=== PATIENT | female | born 1960 | race Caucasian/White ===

== ENCOUNTER 2018-03-03 08:05 | Outpatient (CLI) | payer BC, SELFPAY ==
[2018-03-03 09:45] LABS: Hemoglobin A1C 5.8 % (4.5-6.2)
[2018-03-03 09:52] LABS: Ferritin 60 ng/mL (8-388); TSH 0.09 uIU/mL (0.358-3.74)
[2018-03-03 10:10] LABS: FREE T4 0.84 ng/dL (0.76-1.46)
[2018-03-03 12:52] LABS: Vitamin D 25 Total 27.1 ng/ml (30-100)
[2018-03-03 16:16] LABS: T3,Free 4.3 pg/ml (2.8-5.3)
[2018-03-04 15:36] LABS: Adrenocorticotropic Hormone, P 29 pg/mL
[2018-03-06 08:46] LABS: IGF-1, LC/MS, S 220 ng/mL (37-208); Z-score 2.01 SD
== END 2018-03-03 08:25 ==
PROVIDERS: PCP Nurse Practitioner; Visit Provider Internal Medicine Endocrinology, Diabetes & Metabolism
DX: E24.9 Cushing's syndrome, unspecified (principal)
CPT/HCPCS: 36415; 82306; 82533; 82024; 82728; 83036; 84305; 84439; 84443; 84481

== ENCOUNTER 2018-03-10 07:53 | Outpatient (CLI) | payer BC, SELFPAY ==
[2018-03-10 09:24] LABS: Ferritin 61 ng/mL (8-388); TSH 0.09 uIU/mL (0.358-3.74)
[2018-03-10 09:29] LABS: Vitamin D 25 Total 28.1 ng/ml (30-100)
[2018-03-11 14:32] LABS: Adrenocorticotropic Hormone, P 25 pg/mL
[2018-03-12 11:54] LABS: IGF-1, LC/MS, S 217 ng/mL (37-208); Z-score 2.01 SD
== END 2018-03-10 08:13 ==
PROVIDERS: PCP Nurse Practitioner; Visit Provider Internal Medicine Endocrinology, Diabetes & Metabolism
DX: E24.9 Cushing's syndrome, unspecified (principal)
CPT/HCPCS: 36415; 82306; 82533; 82024; 82728; 83036; 84305; 84439; 84443; 84481

== ENCOUNTER 2018-05-13 07:37 | Outpatient (CLI) | payer BC, SELFPAY ==
[2018-05-13 08:19] LABS: Hemoglobin A1C 6.2 % (4.5-6.2)
[2018-05-13 09:23] LABS: FREE T4 1.13 ng/dL (0.76-1.46); TSH 0.03 uIU/mL (0.358-3.74)
[2018-05-13 09:57] LABS: Ferritin 79 ng/mL (8-388)
[2018-05-13 21:17] LABS: T3,Free 4.8 pg/ml (2.8-5.3)
[2018-05-15 05:16] LABS: Vitamin D 25 Total 29.3 ng/ml (30-100)
[2018-05-15 11:29] LABS: Adrenocorticotropic Hormone, P 18 pg/mL
[2018-05-16 10:01] LABS: T3 (Triiodothyronine) Reverse 19 ng/dL (10-24)
== END 2018-05-13 07:57 ==
PROVIDERS: PCP Nurse Practitioner; Visit Provider Internal Medicine Endocrinology, Diabetes & Metabolism
DX: E24.9 Cushing's syndrome, unspecified (principal)
CPT/HCPCS: 36415; 82306; 82533; 82024; 82728; 83036; 84439; 84443; 84481; 84482

== ENCOUNTER 2018-08-22 07:38 | Outpatient (CLI) | payer BC, SELFPAY ==
[2018-08-22 08:28] LABS: Hemoglobin A1C 5.8 % (4.5-6.2)
[2018-08-22 09:44] LABS: Ferritin 88 ng/mL (8-388); TSH 0.02 uIU/mL (0.358-3.74)
[2018-08-22 16:39] LABS: T3,Free 5.2 pg/ml (2.8-5.3)
[2018-08-22 16:52] LABS: Estradiol <12 pg/ml
[2018-08-23 14:02] LABS: Adrenocorticotropic Hormone, P 45 pg/mL
[2018-08-25 07:41] LABS: Vitamin D 25 Total 35.2 ng/ml (30-100)
[2018-08-26 12:19] LABS: T3 (Triiodothyronine) Reverse 19 ng/dL (10-24)
[2018-08-27 17:38] LABS: IGF-1, LC/MS, S 139 ng/mL (37-208); Z-score 0.84 SD
== END 2018-08-22 07:58 ==
PROVIDERS: PCP Nurse Practitioner; Visit Provider Internal Medicine Endocrinology, Diabetes & Metabolism
DX: E24.9 Cushing's syndrome, unspecified (principal)
CPT/HCPCS: 36415; 82306; 82533; 82024; 82670; 82728; 83036; 84305; 84439; 84443; 84481; 84482

== ENCOUNTER 2018-12-12 07:51 | Outpatient (CLI) | payer BC, SELFPAY ==
[2018-12-12 09:13] LABS: Ferritin 141 ng/mL (8-388); T4 10.2 ug/dL (4.5-12.5); TSH 0.01 uIU/mL (0.36-3.74)
[2018-12-12 18:07] LABS: T3,Free 4.4 pg/ml (2.8-5.3)
[2018-12-12 18:22] LABS: Estradiol 12 pg/ml
[2018-12-13 14:04] LABS: Adrenocorticotropic Hormone, P 25 pg/mL
[2018-12-15 08:03] LABS: Vitamin D 25 Total 30.9 ng/ml (30-100)
[2018-12-16 11:46] LABS: T3 (Triiodothyronine) Reverse 20 ng/dL (10-24)
[2018-12-18 16:40] LABS: IGF-1, LC/MS, S 178 ng/mL (37-208); Z-score 1.65 SD
== END 2018-12-12 08:11 ==
PROVIDERS: PCP Nurse Practitioner; Visit Provider Internal Medicine Endocrinology, Diabetes & Metabolism
DX: E24.9 Cushing's syndrome, unspecified (principal)
CPT/HCPCS: 82306; 82533; 82024; 82670; 82728; 83036; 84305; 84436; 84443; 84481; 84482

== ENCOUNTER 2019-03-04 08:06 | Outpatient (CLI) | payer BC, SELFPAY ==
[2019-03-04 09:55] LABS: Hemoglobin A1C 5.8 % (4.5-6.2)
[2019-03-04 10:11] LABS: Ferritin 116 ng/mL (8-252); T4 10.2 ug/mL (4.7-13.3); TSH 0.01 uIU/mL (0.36-3.74)
[2019-03-04 10:35] LABS: FREE T4 1.11 ng/dL (0.76-1.46)
[2019-03-05 04:41] LABS: Vitamin D 25 Total 27.1 ng/ml (30-100)
[2019-03-05 08:38] LABS: Estradiol 12 pg/mL (See Note)
[2019-03-05 13:16] LABS: Adrenocorticotropic Hormone, P 26 pg/mL
[2019-03-06 15:42] LABS: IGF-1, LC/MS, S 212 ng/mL (37-208); Z-score 2.01 SD
[2019-03-07 16:16] LABS: T3 (Triiodothyronine) Reverse 25 ng/dL (10-24)
== END 2019-03-04 08:26 ==
PROVIDERS: PCP Nurse Practitioner; Visit Provider Internal Medicine Endocrinology, Diabetes & Metabolism
DX: E24.9 Cushing's syndrome, unspecified (principal)
CPT/HCPCS: 36415; 82306; 82533; 82024; 82670; 82728; 83036; 84305; 84436; 84439; 84443; 84481; 84482

== ENCOUNTER 2019-03-19 08:49 | Outpatient (CLI) | payer BC, SELFPAY ==
[2019-03-19 10:21] LABS: ALT 37 U/L (14-59); AST 18 U/L (15-37); Albumin 3.4 g/dL (3.4-5.0); Alkaline Phosphatase 88 U/L (46-116); Anion Gap 6.8 mmol/L (3-11); BUN 16 mg/dL (7-18); Bilirubin, Total 0.6 mg/dL (0.2-1.0); CO2 30.2 mmol/L (21.0-32.0); CREATININE 0.97 mg/dL (0.55-1.02); Calculated LDL 100 mg/dL; Chloride 107 mmol/L (98-107); Cholesterol 172 mg/dL (<200); Estimated GFR 58.98 (mL/min/1.73m2); Glucose 106 mg/dL (74-106); HDL Cholesterol 59 mg/dL (40-60); Potassium 4.5 mmol/L (3.5-5.1); Sodium 144 mmol/L (136-145); Total Protein 6.3 g/dL (6.4-8.2); Triglyceride 66 mg/dL (<150)
== END 2019-03-19 09:09 ==
PROVIDERS: PCP Family Medicine; Visit Provider Family Medicine
DX: Z00.00 Encounter for general adult medical examination without abnormal findings (principal); R73.03 Prediabetes; E24.9 Cushing's syndrome, unspecified; Z13.220 Encounter for screening for lipoid disorders
CPT/HCPCS: 36415; 80053; 80061

== ENCOUNTER 2019-06-01 02:03 | Outpatient (CLI) | payer BC, SELFPAY ==
--- NOTE | 2019-06-01 | DI.MAMMO_ITS ---
EXAM: MG MAMMO SCREENING CLINICAL HISTORY: SCREENING, Z12.31. TECHNIQUE: Bilateral full field digital CC and MLO mammographic images were obtained with 3D tomosyn thesis and utilizing computer aided detection (CAD). COMPARISON: Available for comparison. FINDINGS: Masses/Architectural Distortion: None seen. Microcalcifications: No suspicious pleomorphic-type are seen. Skin Thickening/Nipple Retraction: None. IMPRESSION: 1. No significant interval change with no specific features of malignancy noted. 2. Unless there is more urgent need, screening mammography is recommended, as per [employer] guidelines. ACR BI-RAD Category- 1 Negative Breast Density - Category A - Almost entirely fatty A negative radiographic report should not delay biopsy if a dominant or clinically suspicious mass is present. Up to ten percent of cancers are not identified on mammography. A negative report may reinforce clinical impression. Adenosis and dense breasts may obscure an underlying neoplasm. False positive reports average 6 to 10%. Patient will receive a letter notifying them of these results.
== END 2019-06-01 02:23 ==
PROVIDERS: PCP Family Medicine; Visit Provider Family Medicine
DX: Z12.31 Encounter for screening mammogram for malignant neoplasm of breast (principal)
CPT/HCPCS: 77063; 77067

== ENCOUNTER 2019-06-23 07:46 | Outpatient (CLI) | payer BC, SELFPAY ==
[2019-06-23 08:36] LABS: Hemoglobin A1C 5.9 % (3.8-5.6)
[2019-06-23 09:02] LABS: Ferritin 130 ng/mL (8-252); TSH 0.09 uIU/mL (0.36-3.74)
[2019-06-23 09:18] LABS: FREE T4 0.87 ng/dL (0.76-1.46)
[2019-06-23 16:02] LABS: T3,Free 3.9 pg/mL (2.8-5.3)
[2019-06-23 16:47] LABS: Estradiol 12 pg/mL (See Note)
[2019-06-24 16:30] LABS: Adrenocorticotropic Hormone, P 27 pg/mL
[2019-06-25 06:15] LABS: Vitamin D 25 Total 26.2 ng/ml (30-100)
[2019-06-26 15:47] LABS: T3 (Triiodothyronine) Reverse 15 ng/dL (10-24)
== END 2019-06-23 08:06 ==
PROVIDERS: PCP Family Medicine; Visit Provider Internal Medicine Endocrinology, Diabetes & Metabolism
DX: E24.9 Cushing's syndrome, unspecified (principal)
CPT/HCPCS: 36415; 82306; 82533; 83519; 82024; 82670; 82728; 83036; 84439; 84443; 84481; 84482

== ENCOUNTER 2019-07-15 11:44 | Outpatient (CLI) | payer BC, SELFPAY ==
[2019-07-21 12:18] LABS: IGF-1, LC/MS, S 233 ng/mL (37-208); Z-score 2.33 SD
== END 2019-07-15 12:04 ==
PROVIDERS: PCP Family Medicine; Visit Provider Internal Medicine Endocrinology, Diabetes & Metabolism
DX: E24.9 Cushing's syndrome, unspecified (principal)
CPT/HCPCS: 84305

== ENCOUNTER 2019-09-16 02:52 | Outpatient (CLI) | payer BC, SELFPAY ==
[2019-09-16 08:56] LABS: Hemoglobin A1C 5.7 % (3.8-5.6)
[2019-09-16 15:20] LABS: Ferritin 130 ng/mL (8-252); TSH 0.11 uIU/mL (0.36-3.74)
[2019-09-16 15:46] LABS: FREE T4 0.99 ng/dL (0.76-1.46)
[2019-09-16 17:49] LABS: T3,Free 4.2 pg/mL (2.8-5.3)
[2019-09-16 18:08] LABS: Estradiol <12 pg/mL (See Note)
[2019-09-17 05:07] LABS: Vitamin D 25 Total 27.1 ng/ml (30-100)
[2019-09-17 15:33] LABS: Adrenocorticotropic Hormone, P 30 pg/mL
[2019-09-21 16:11] LABS: IGF-1, LC/MS, S 201 ng/mL (37-208); Z-score 1.96 SD
[2019-09-21 16:34] LABS: T3 (Triiodothyronine) Reverse 16 ng/dL (10-24)
== END 2019-09-16 03:12 ==
PROVIDERS: PCP Family Medicine; Visit Provider Internal Medicine Endocrinology, Diabetes & Metabolism
DX: E24.9 Cushing's syndrome, unspecified (principal)
CPT/HCPCS: 36415; 82306; 82533; 82024; 82670; 82728; 83036; 84305; 84439; 84443; 84481; 84482

== ENCOUNTER 2019-12-25 03:54 | Outpatient (CLI) | payer BC, SELFPAY ==
[2019-12-25 09:43] LABS: Ferritin 176 ng/mL (8-252); TSH 0.24 uIU/mL (0.36-3.74)
[2019-12-25 10:05] LABS: FREE T4 0.98 ng/dL (0.76-1.46)
[2019-12-25 11:42] LABS: Hemoglobin A1C 5.7 % (<5.7)
[2019-12-25 18:01] LABS: T3,Free 3.8 pg/mL (2.8-5.3)
[2019-12-25 18:29] LABS: Estradiol <12 pg/mL (See Note)
[2019-12-28 05:59] LABS: Vitamin D 25 Total 28.8 ng/ml (30-100)
[2019-12-28 10:39] LABS: Adrenocorticotropic Hormone, P 27 pg/mL
[2019-12-29 11:25] LABS: T3 (Triiodothyronine) Reverse 17 ng/dL (10-24)
[2019-12-29 15:45] LABS: IGF-1, LC/MS, S 201 ng/mL (37-208); Z-score 1.96 SD
== END 2019-12-25 04:14 ==
PROVIDERS: PCP Family Medicine; Visit Provider Internal Medicine Endocrinology, Diabetes & Metabolism
DX: E24.9 Cushing's syndrome, unspecified (principal)
CPT/HCPCS: 36415; 82306; 82533; 82024; 82670; 82728; 83036; 84305; 84439; 84443; 84481; 84482

== ENCOUNTER 2020-02-24 07:38 | Outpatient (CLI) | payer BC, SELFPAY ==
[2020-02-28 14:38] LABS: Patient Race White; SARS-CoV-2 RNA Undetected (Undetected); SARS-CoV-2 Specimen Source Nasal
== END 2020-02-24 07:58 ==
PROVIDERS: PCP Family Medicine; Visit Provider Family Medicine
DX: Z20.828 Contact with and (suspected) exposure to other viral communicable diseases (principal)
CPT/HCPCS: U0003

== ENCOUNTER 2020-03-03 04:37 | Outpatient (CLI) | payer BC, SELFPAY ==
[2020-03-03 08:44] LABS: Hemoglobin A1C 5.8 % (<5.7)
[2020-03-03 09:29] LABS: Ferritin 152 ng/mL (8-252); TSH 0.22 uIU/mL (0.36-3.74)
[2020-03-03 09:39] LABS: Vitamin D 25 Total 28.2 ng/ml (30-100)
[2020-03-03 09:46] LABS: FREE T4 0.96 ng/dL (0.76-1.46)
[2020-03-04 14:57] LABS: Adrenocorticotropic Hormone, P 40 pg/mL
[2020-03-07 12:21] LABS: IGF-1, LC/MS, S 180 ng/mL (37-208); Z-score 1.65 SD
[2020-03-09 11:19] LABS: T3 (Triiodothyronine) Reverse 15 ng/dL (10-24)
[2020-03-16 16:32] LABS: Estradiol 12 pg/mL
[2020-03-16 16:33] LABS: T3,Free 2.9 pg/mL
== END 2020-03-03 04:57 ==
PROVIDERS: PCP Family Medicine; Visit Provider Internal Medicine Endocrinology, Diabetes & Metabolism
DX: E24.9 Cushing's syndrome, unspecified (principal)
CPT/HCPCS: 36415; 82306; 82533; 82024; 82670; 82728; 83036; 84305; 84439; 84443; 84481; 84482

== ENCOUNTER 2020-05-20 01:27 | Outpatient (CLI) | payer BC, SELFPAY ==
[2020-05-20 08:36] LABS: Hemoglobin A1C 5.9 % (<5.7)
[2020-05-20 09:46] LABS: FREE T4 1.06 ng/dL (0.76-1.46); TSH 0.14 uIU/mL (0.36-3.74)
[2020-05-20 12:34] LABS: Ferritin 175 ng/mL (8-252)
[2020-05-20 12:45] LABS: Vitamin D 25 Total 64.4 ng/ml (30-100)
[2020-05-21 16:41] LABS: Adrenocorticotropic Hormone, P 32 pg/mL
[2020-05-25 10:28] LABS: IGF-1, LC/MS, S 244 ng/mL (37-208); Z-score 2.33 SD
[2020-05-27 09:40] LABS: Estradiol 13 pg/mL (See Note); T3,Free 3.6 pg/mL (2.8-5.3)
[2020-05-27 09:43] LABS: T3 (Triiodothyronine) Reverse 14 ng/dL (10-24)
== END 2020-05-20 01:28 | disposition home or self-care (01) ==
LOC: LBO 01:27
PROVIDERS: PCP Family Medicine; Visit Provider Internal Medicine Endocrinology, Diabetes & Metabolism
DX: E24.9 Cushing's syndrome, unspecified (principal)
CPT/HCPCS: 36415; 82306; 82533; 83519; 82024; 82670; 82728; 83036; 84305; 84436; 84439; 84443; 84481; 84482

== ENCOUNTER 2020-07-18 01:50 | Outpatient (CLI) | payer BC, SELFPAY ==
--- NOTE | 2020-07-18 | DI.RAD_ITS ---
EXAM: XR ARTHRITIS SERIES CLINICAL HISTORY: BILAT HAND PAIN,M70.641,M79.642. TECHNIQUE: 2D digital imaging was performed. COMPARISON: No exams were available for comparison FINDINGS: There are mild degenerative changes seen at the hands with periarticular spurring most marked at the 1st CMC joints bilaterally. The MCP joints are well maintained. No soft tissue calcifications or er osions are seen. The bones are normally mineralized. The soft tissues are unremarkable. No acute f racture or dislocation. IMPRESSION: Mild degenerative changes of the hands. DATA REPOSITORY: RADIATION DOSE DELIVERED:
--- NOTE | 2020-07-18 | DI.RAD_ITS ---
EXAM: XR FOOT LT COMPLETE CLINICAL HISTORY: BILAT FOOT PAIN,M79.671,M79.672. TECHNIQUE: 2D digital imaging was performed. COMPARISON: No exams were available for comparison FINDINGS: Klzh-gm-[id number] degenerative changes are seen at the 1st MTP joint with joint space narrowing, peria rticular spurring and subchondral cysts. There is a small spur at the plantar surface of the calcane us. There is an enthesophyte at the Achilles insertion site. No acute fracture or dislocation. The bones are normally mineralized. The soft tissues are unremarkable. IMPRESSION: Degenerative changes of the left foot. DATA REPOSITORY: RADIATION DOSE DELIVERED:
--- NOTE | 2020-07-18 | DI.RAD_ITS ---
EXAM: XR FOOT RT COMPLETE CLINICAL HISTORY: BILAT FOOT PAIN, M79.671,M79.672. TECHNIQUE: 2D digital imaging was performed. COMPARISON: No exams were available for comparison FINDINGS: No acute fracture or dislocation. Degenerative changes are seen in the foot with periarticular spurr ing particularly at the talonavicular joint and the 1st MTP joint. There are findings of a prior bun ionectomy. The bones are normally mineralized. No suspicious lytic or sclerotic lesions are seen. There is a moderate-sized plantar calcaneal spur. There is an enthesophyte at the Achilles insertion site. The soft tissues are unremarkable. IMPRESSION: Mild degenerative changes of the right foot. DATA REPOSITORY: RADIATION DOSE DELIVERED:
== END 2020-07-18 02:10 ==
PROVIDERS: PCP Family Medicine; Visit Provider Internal Medicine Rheumatology
DX: M79.642 Pain in left hand (principal); M79.641 Pain in right hand; M19.041 Primary osteoarthritis, right hand; M19.042 Primary osteoarthritis, left hand; M79.671 Pain in right foot; M79.672 Pain in left foot; M19.071 Primary osteoarthritis, right ankle and foot; M77.31 Calcaneal spur, right foot; M19.072 Primary osteoarthritis, left ankle and foot; M77.32 Calcaneal spur, left foot
CPT/HCPCS: 73120; 73630

== ENCOUNTER 2020-08-01 16:02 | Outpatient (REF) | payer BC, SELFPAY ==
[2020-08-01 16:27] LABS: Bilirubin Negative (Negative); Blood Negative (Negative); Clarity Clear (Clear); Glucose Negative (Negative); Ketones Negative (Negative); Leukocyte Esterase Negative (Negative); Nitrite Negative (Negative); Urobilinogen 0.2 EU/dL (Up TO 0.2); pH 5.5 (5-8)
== END 2020-08-01 16:03 | disposition home or self-care (01) ==
LOC: LBN 16:02
PROVIDERS: PCP Family Medicine; Visit Provider Internal Medicine Endocrinology, Diabetes & Metabolism
DX: E24.9 Cushing's syndrome, unspecified (principal)
CPT/HCPCS: 81003

== ENCOUNTER 2020-09-16 02:39 | Outpatient (CLI) | payer BC, SELFPAY ==
[2020-09-16 08:47] LABS: Hemoglobin A1C 5.8 % (<5.7)
[2020-09-16 09:55] LABS: FREE T4 1.15 ng/dL (0.76-1.46); TSH 0.07 uIU/mL (0.36-3.74)
[2020-09-16 16:32] LABS: T3,Free 4.8 pg/mL (2.8-5.3)
[2020-09-19 05:27] LABS: Vitamin D 25 Total 70.4 ng/mL (30-100)
[2020-09-19 11:55] LABS: Adrenocorticotropic Hormone, P 21 pg/mL
[2020-09-19 13:29] LABS: IGF-1, LC/MS, S 181 ng/mL (37-208); Z-score 1.65 SD
[2020-09-20 09:48] LABS: T3 (Triiodothyronine) Reverse 23 ng/dL (10-24)
== END 2020-09-16 02:40 | disposition home or self-care (01) ==
LOC: LBO 02:39
PROVIDERS: PCP Family Medicine; Visit Provider Internal Medicine Endocrinology, Diabetes & Metabolism
DX: E55.9 Vitamin D deficiency, unspecified (principal); E21.3 Hyperparathyroidism, unspecified; D50.0 Iron deficiency anemia secondary to blood loss (chronic); E03.9 Hypothyroidism, unspecified; E23.0 Hypopituitarism; E11.9 Type 2 diabetes mellitus without complications; E34.9 Endocrine disorder, unspecified
CPT/HCPCS: 36415; 82306; 83519; 82024; 83036; 84305; 84439; 84443; 84481; 84482

== ENCOUNTER 2021-01-09 03:21 | Outpatient (CLI) | payer BC, SELFPAY ==
[2021-01-09 09:57] LABS: TSH 0.89 uIU/mL (0.36-3.74)
[2021-01-09 10:13] LABS: FREE T4 0.68 ng/dL (0.76-1.46)
[2021-01-09 10:18] LABS: Vitamin D 25 Total 42.8 ng/mL (30-100)
[2021-01-10 12:46] LABS: Adrenocorticotropic Hormone, P 17 pg/mL
[2021-01-12 09:21] LABS: IGF-1, LC/MS, S 187 ng/mL (37-208); Z-score 1.65 SD
[2021-01-12 16:13] LABS: T3 (Triiodothyronine) Reverse 15 ng/dL (10-24)
== END 2021-01-09 03:22 | disposition home or self-care (01) ==
PROVIDERS: PCP Family Medicine; Visit Provider Internal Medicine Endocrinology, Diabetes & Metabolism
DX: E55.9 Vitamin D deficiency, unspecified (principal); E21.3 Hyperparathyroidism, unspecified; D50.0 Iron deficiency anemia secondary to blood loss (chronic); E03.9 Hypothyroidism, unspecified; E23.0 Hypopituitarism; E11.9 Type 2 diabetes mellitus without complications; E34.9 Endocrine disorder, unspecified
CPT/HCPCS: 36415; 82306; 82533; 83519; 82024; 83036; 84305; 84439; 84442; 84443; 84481; 84482

== ENCOUNTER 2021-07-19 03:00 | Outpatient (CLI) | payer BC, SELFPAY ==
[2021-07-19 09:34] LABS: FREE T4 0.82 ng/dL (0.76-1.46); TSH 0.16 uIU/mL (0.36-3.74)
[2021-07-19 17:18] LABS: T3,Free 4.7 pg/mL (2.8-5.3)
[2021-07-20 05:31] LABS: Vitamin D 25 Total 36.4 ng/mL (30-100)
[2021-07-20 17:55] LABS: Adrenocorticotropic Hormone, P 25 pg/mL
[2021-07-24 10:32] LABS: IGF-1, LC/MS, S 204 ng/mL (37-208); Z-score 1.96 SD
[2021-07-24 12:59] LABS: T3 (Triiodothyronine) Reverse 14 ng/dL (10-24)
== END 2021-07-19 03:01 | disposition home or self-care (01) ==
LOC: LBO 03:00
PROVIDERS: PCP Family Medicine; Visit Provider Internal Medicine Endocrinology, Diabetes & Metabolism
DX: E55.9 Vitamin D deficiency, unspecified (principal); E21.3 Hyperparathyroidism, unspecified; D50.0 Iron deficiency anemia secondary to blood loss (chronic); E03.9 Hypothyroidism, unspecified; E23.0 Hypopituitarism; E11.9 Type 2 diabetes mellitus without complications; E34.8 Other specified endocrine disorders
CPT/HCPCS: 36415; 82306; 82533; 82024; 83036; 84305; 84439; 84443; 84481; 84482

== ENCOUNTER 2021-12-27 01:50 | Outpatient (CLI) | payer BC, SELFPAY ==
[2021-12-27 09:30] LABS: FREE T4 0.86 ng/dL (0.76-1.46); TSH 0.69 uIU/mL (0.36-3.74)
[2021-12-27 17:40] LABS: T3,Free 3.4 pg/mL (2.8-5.3)
[2021-12-28 05:18] LABS: Vitamin D 25 Total 35.5 ng/mL (30-100)
[2021-12-28 15:04] LABS: Adrenocorticotropic Hormone, P 39 pg/mL
[2021-12-30 12:58] LABS: IGF-1, LC/MS, S 177 ng/mL (35-201); Z-score 1.65 SD
[2022-01-02 16:34] LABS: T3 (Triiodothyronine) Reverse 13 ng/dL (10-24)
== END 2021-12-27 01:51 | disposition home or self-care (01) ==
LOC: LBO 01:50
PROVIDERS: PCP Family Medicine; Visit Provider Internal Medicine Endocrinology, Diabetes & Metabolism
DX: E55.9 Vitamin D deficiency, unspecified (principal); E21.3 Hyperparathyroidism, unspecified; D50.0 Iron deficiency anemia secondary to blood loss (chronic); E03.9 Hypothyroidism, unspecified; E23.0 Hypopituitarism; E11.9 Type 2 diabetes mellitus without complications; E34.9 Endocrine disorder, unspecified
CPT/HCPCS: 36415; 82306; 82533; 82024; 83036; 84305; 84439; 84443; 84481; 84482

== ENCOUNTER → 2022-03-27 01:19 | Outpatient (CLI) | payer BC, SELFPAY ==
--- NOTE | 2022-03-27 12:15 | DI.MAMMO_ITS ---
Exam(s) MAMMO SCREENING EXAM: MAMMO SCREENING CLINICAL HISTORY: STEFFEN, Z12.39 TECHNIQUE: Bilateral full field digital CC and MLO mammographic images were obtained with 3D tomosyn thesis and utilizing computer aided detection (CAD). COMPARISON: Available for comparison. FINDINGS: Masses/Architectural Distortion: None seen. Microcalcifications: No suspicious pleomorphic-type are seen. Skin Thickening/Nipple Retraction: None. IMPRESSION: 1. No significant interval change with no specific features of malignancy noted. 2. Unless there is more urgent need, screening mammography is recommended, as per [employer] guidelines. BI-RADS Category 1 - Negative Breast Density - Category A - Almost entirely fatty Breast density category C or D implies that the patient has dense breast tissue. Dense breast tissue is very common and is not abnormal but dense breast tissue can make it harder to find cancer on a ma mmogram. Also, dense breast tissue may increase their breast cancer risk. This information about the result of the mammogram report was provided to the patient to raise their awareness. Use this report when you speak with the patient about their risks for breast cancer, which includes their family hist ory. At that time, you may recommend for more screening tests (Ultrasound or MRI) as they might be us eful based on their risk. A negative radiographic report should not delay biopsy if a dominant or clinically suspicious mass is present. Up to ten percent of cancers are not identified on mammography. A negative report may reinforce clinical impression. Adenosis and dense breasts may obscure an underlying neoplasm. False positive reports average 6 to 10%. Patient will receive a letter notifying them of these results.
== END ==
PROVIDERS: PCP Family Medicine; Visit Provider Family Medicine
DX: Z12.31 Encounter for screening mammogram for malignant neoplasm of breast (principal)
CPT/HCPCS: 77063; 77067

== ENCOUNTER 2022-07-10 02:25 | Outpatient (CLI) | payer BC, SELFPAY ==
[2022-07-10 09:24] LABS: Hemoglobin A1C 5.8 % (<5.7)
[2022-07-10 09:42] LABS: FREE T4 1.19 ng/dL (0.76-1.46); TSH 0.01 uIU/mL (0.36-3.74)
[2022-07-10 10:21] LABS: Vitamin D 25 Total 30.3 ng/mL (30-100)
[2022-07-10 17:57] LABS: T3,Free 5.1 pg/mL (2.8-5.3)
[2022-07-11 17:42] LABS: Adrenocorticotropic Hormone, P 22 pg/mL
[2022-07-13 16:36] LABS: T3 (Triiodothyronine) Reverse 25 ng/dL (10-24)
[2022-07-13 16:57] LABS: IGF-1, LC/MS, S 208 ng/mL (35-201); Z-score 2.01 SD
== END 2022-07-10 02:26 | disposition home or self-care (01) ==
LOC: LBO 02:25
PROVIDERS: PCP Family Medicine; Visit Provider Internal Medicine Endocrinology, Diabetes & Metabolism
DX: E24.9 Cushing's syndrome, unspecified (principal); E11.9 Type 2 diabetes mellitus without complications; E55.9 Vitamin D deficiency, unspecified; E03.9 Hypothyroidism, unspecified; D50.0 Iron deficiency anemia secondary to blood loss (chronic); E34.9 Endocrine disorder, unspecified; E23.0 Hypopituitarism
CPT/HCPCS: 36415; 82306; 82533; 83519; 82024; 83036; 84305; 84439; 84443; 84481; 84482

== ENCOUNTER 2022-12-14 02:49 | Outpatient (CLI) | payer BC, SELFPAY ==
[2022-12-14 08:29] LABS: Hemoglobin A1C 5.9 % (<5.7)
[2022-12-14 08:40] LABS: TSH 0.03 uIU/mL (0.36-3.74)
[2022-12-14 08:52] LABS: Vitamin D 25 Total 29.8 ng/mL (30-100)
[2022-12-14 18:45] LABS: T3,Free 5.1 pg/mL (2.8-5.3)
[2022-12-18 12:43] LABS: Adrenocorticotropic Hormone, P 41 pg/mL
[2022-12-18 17:22] LABS: IGF-1, LC/MS, S 180 ng/mL (35-201); Z-score 1.65 SD
[2022-12-20 15:33] LABS: T3 (Triiodothyronine) Reverse 21 ng/dL (10-24)
== END 2022-12-14 02:50 | disposition home or self-care (01) ==
LOC: LBO 02:49
PROVIDERS: PCP Family Medicine; Visit Provider Internal Medicine Endocrinology, Diabetes & Metabolism
DX: E24.9 Cushing's syndrome, unspecified (principal); E23.0 Hypopituitarism; E03.9 Hypothyroidism, unspecified; E11.9 Type 2 diabetes mellitus without complications; E55.9 Vitamin D deficiency, unspecified; D50.0 Iron deficiency anemia secondary to blood loss (chronic)
CPT/HCPCS: 36415; 82306; 82533; 82024; 83036; 84305; 84439; 84442; 84443; 84481; 84482

== ENCOUNTER 2023-05-29 17:57 | Outpatient (REF) | payer BC, SELFPAY ==
[2023-05-29 14:49] LABS: Calculated LDL 92 mg/dL (<100); Cholesterol 181 mg/dL (<200); HDL Cholesterol 64 mg/dL (40-60); Triglyceride 127 mg/dL (<150)
[2023-05-29 14:58] LABS: Uric Acid 8.3 mg/dL (2.6-6.0)
== END 2023-05-29 17:58 | disposition home or self-care (01) ==
LOC: NCHCN 17:57
PROVIDERS: PCP Family Medicine; Referring Provider Nurse Practitioner Family; Visit Provider Nurse Practitioner Family
DX: M10.9 Gout, unspecified (principal); E24.9 Cushing's syndrome, unspecified
CPT/HCPCS: 80061; 84550

== ENCOUNTER 2023-07-08 05:13 | Outpatient (CLI) | payer BC, SELFPAY ==
[2023-07-08 08:37] LABS: FREE T4 0.72 ng/dL (0.76-1.46); TSH 0.96 uIU/Ml (0.36-3.74)
[2023-07-08 08:47] LABS: Vitamin D 25 Total 32.1 ng/mL (30-100)
[2023-07-08 17:20] LABS: T3,Free 4.1 pg/mL (2.8-5.3)
[2023-07-09 18:11] LABS: Adrenocorticotropic Hormone, P 25 pg/mL
[2023-07-12 10:15] LABS: T3 (Triiodothyronine) Reverse 14 ng/dL (10-24)
[2023-07-15 16:35] LABS: IGF-1, LC/MS, S 184 ng/mL (35-201); Z-score 1.65 SD
== END 2023-07-08 05:14 | disposition home or self-care (01) ==
LOC: LBO 05:13
PROVIDERS: PCP Family Medicine; Visit Provider Internal Medicine Endocrinology, Diabetes & Metabolism
DX: E24.9 Cushing's syndrome, unspecified (principal)
CPT/HCPCS: 36415; 82306; 82533; 82024; 83036; 84305; 84439; 84443; 84481; 84482

== ENCOUNTER 2024-01-09 11:43 | Observation (INO) | payer BC, SELFPAY ==
[2024-01-09] VITALS (37 sets, daily range): BP systolic 100–180; BP diastolic 53–140; PULSE 79–148; RESP 18–33; TEMP 36.2–37.9; O2SAT 93–99
[2024-01-09 12:21] LABS: Bilirubin Negative (Negative); Blood Negative (Negative); Clarity Clear (Clear); Glucose Negative (Negative); Ketones 15 mg/dL (Negative); Leukocyte Esterase Negative (Negative); Nitrite Negative (Negative); Specific Gravity 1.025 (1.005-1.025); Urobilinogen 0.2 mg/dL (Up to 0.2)
--- NOTE | 2024-01-09 12:45 | RT.EKG_ITS ---
APPROVED REPORT Exam: Resting ECG Reason for Exam: abnormal rhythm, tachycardic Patient Location: E HR:102 bpm ECG Measurements Heart Rate 102 AXIS OK [id number] P [id number] QRSd 88 QRS 75 QT 343 T 185 QTc 448 Conclusion Atrial fibrillation...V-rate 83-132, irreg A-activity
--- NOTE | 2024-01-09 12:54 | W.ED.GENAD ---
Discharge Plan Disposition Patient Disposition: Admit to [facility] Condition: Serious Discharge Details Clinical Impression: Splenic infarction, Atrial fibrillation, new onset Primary Care Provider: Irina Lovell ED Provider: Federico Varela Home Meds and New Rx's Prescriptions: No Action hydrocortisone 5 MG tablet 5 mg PO DAILY cholecalciferol (vitamin D3) [Vitamin D3] 2,000 UNIT capsule 2,000 unit PO DAILY thyroid (pork) [ADDRESS CHANGE CLERK Thyroid] 60 mg tablet 120 mg PO DAILY thyroid (pork) [ADDRESS CHANGE CLERK Thyroid] 30 mg tablet 45 mg PO DAILY Serostim 4 mg recon soln 2 mg subcut DAILY allopurinol 100 mg tablet Patient Comments: TAKE ONE TABLET BY MOUTH EVERY DAY IN THE MORNING FOR GOUT HPI General Mode of arrival: ambulatory. Date/Time Provider Initiated Documentation: 01/09/24 12:05. Limitations to Documentation: no limitations. Information obtained by: patient and family. HPI Narrative: 63-year-old female with remote surgical history of cholecystectomy, chronic adrenal insufficiency status post removal of pituitary mass, on chronic steroids, here with chief complaint of abdominal pain. Patient notes pain started last night and has persisted. Pain described as severe gas pain that starts in her left abdomen and radiates to her right and back. Pain is severe at times and relieved by belching. She has passed gas as well as had bowel movement since onset of pain. No bright red blood per rectum or melena. She does note increased frequency of urination last night but no dysuria. She has associated nausea. Related Data Home Medications ?Medication ?Instructions ?Recorded ?Confirmed cholecalciferol (vitamin D3) 50 2,000 unit PO DAILY 06/06/17 01/09/24 mcg (2,000 unit) capsule (Vitamin D3) hydrocortisone 5 mg tablet 5 mg PO DAILY 06/06/17 01/09/24 allopurinol 100 mg tablet mg 01/09/24 somatropin 4 mg subcutaneous 2 mg subcut DAILY 01/09/24 01/09/24 solution (Serostim) thyroid (pork) 30 mg tablet (ADDRESS CHANGE CLERK 45 mg PO DAILY 01/09/24 01/09/24 Thyroid) thyroid (pork) 60 mg tablet (ADDRESS CHANGE CLERK 120 mg PO DAILY 01/09/24 01/09/24 Thyroid) Allergies Allergy/AdvReac Type Severity Reaction Status Date / Time phenytoin sodium (From Allergy Severe Hives Unverified 01/09/24 12:04 Dilantin) phenytoin sodium extended Allergy Severe Hives Unverified 01/09/24 12:04 (From Dilantin) multiple chemical AdvReac Intermediate upper Uncoded 01/09/24 12:04 sensitivites Resp. issues FISHER, congestion General Stated Complaint: Abd Prob CEM: 3 Review of Systems All systems reviewed & are unremarkable except as noted in HPI and below Constitutional Constitutional: Reports as per HPI Gastrointestinal Gastrointestinal: Reports as per HPI Exam Const General: cooperative and uncomfortable Orientation: alert and awake HENKY Head: normocephalic and atraumatic Mouth: mucous membranes dry Eyes Conjunctivae: normal conjunctivae Sclera: normal sclerae Resp Auscultation: clear to auscultation bilaterally, no rales, no rhonchi and no wheezes Cardio Rate: tachycardic Rhythm: abnormal rhythm irregularly irregular GI Palpation: soft, not firm, no guarding, no masses, not rigid and tender in the LUQ; with no rebound tenderness Skin General skin exam: no rashes or lesions noted Neuro General: patient alert, patient awake and tone normal Extrem General: no edema Course Vital Signs Vital signs: Vital Signs Temperature 36.8 C 01/09/24 11:57 Pulse 100 H 01/09/24 11:57 Respiratory Rate 20 01/09/24 11:57 Pulse Oximetry 96 01/09/24 11:57 Temperature 36.8 C 01/09/24 11:57 Temperature Source Tympanic 01/09/24 11:57 Pulse 100 H 01/09/24 11:57 Respiratory Rate 20 01/09/24 11:57 Blood Pressure Position Sitting 01/09/24 11:57 Pulse Oximetry 96 01/09/24 11:57 Oxygen Delivery Method Room Air 01/09/24 11:57 Oxygen Flow Rate 0 01/09/24 11:57 Pain Level 8 01/09/24 11:57 Lab/Test Results Lab/Test Results: Laboratory Tests Range/Units 01/09/24 12:15 Urine Color (Yellow) Yellow Urine Clarity (Clear) Clear Urine pH (5-8) 5.0 Ur Specific [place] (1.005-1.025) 1.025 Urine Protein (Neg-Trace) mg/dL Negative Urine Ketones (Negative) mg/dL 15 H Urine Blood (Negative) Negative Urine Nitrite (Negative) Negative Urine Bilirubin (Negative) Negative Urine Urobilinogen (Up to 0.2) mg/dL 0.2 Ur Leukocyte Esterase (Negative) Negative Urine Glucose (Negative) mg/dL Negative Medical Decision Making 1300 --63-year-old female with history of cholecystectomy, Xi fundoplication, here with significant abdominal pain since last night with associated nausea and increased belching. Patient is tachycardic with irregular heart rhythm on auscultation. She is hypertensive. Patient patient does have significant tenderness in her left upper abdomen. No rigidity or rebound tenderness. Concern for acute intra-abdominal surgical process including bowel obstruction. Plan to obtain CT of the abdomen and pelvis. Consider other etiologies including acute pancreatitis, gastric ulcer, gas pain. Zofran IV to be administered for nausea. Patient is clinically dehydrated and will give IV fluid bolus. Concern for potential arrhythmia. Will obtain EKG. 1315 --EKG was reviewed and interpreted by me: A-fib 102 bpm, T wave flattening with inversions laterally V5 and V6. Patient did have recent long distance travel and has had some shortness of breath and generally not feeling well since traveling over the past couple weeks. Consider acute pulmonary embolism. I will add CT of the chest. 151 --CT of the chest for pulmonary embolism and abdomen pelvis interpreted by radiology: IMPRESSION: 1. No evidence of acute pulmonary emboli nor pulmonary infarction. No infiltrates nor pleural effusions. 2. Cardiomegaly. No pericardial effusion 3. The main finding in the abdomen-pelvis is abnormal enhancement pattern of the spleen which is suspicious for splenic infarctions. Spleen size is normal. There is no obvious occlusion of the splenic artery. Splenic vein is also patent and exhibits normal size/diameter. 4. Previous cholecystectomy. Mild dilatation of the CBD probably related to post cholecystectomy status. 5. Evidence of previous surgery at GE junction level. There is a moderate size hiatal hernia again noted. Plan to anticoagulate and admit. Spoke with Dr. Prather, discussed ED presentation course, he recommends Lovenox as opposed to heparin at this time. He will admit the patient. Lab Data Lab results reviewed: Yes I reviewed the patient's lab results. Labs: Laboratory Tests Range/Units 01/09/24 01/09/24 12:15 13:00 WBC (4.4-10.8) 10^3/uL 13.87 H RBC (3.93-5.22) 10^6/uL 5.27 H Hgb (11.2-15.7) g/dL 15.6 Hct (36.0-46.0) % 46.5 H MCV (80-95) fL 88 MCH (27.0-33.0) pg 29.6 MCHC (32.0-36.0) % 33.5 RDW (11.7-14.6) % 13.9 Plt Count (130-400) 10^3/uL 189 MPV (8.0-11.0) fL 10.0 Immature Gran % % 0.6 Neutrophils % % 88.9 Lymphocytes % % 2.4 Monocytes % % 7.9 Eosinophils % % 0.0 Basophils % % 0.2 Nucleated RBC % (0.0-0.3) % 0.0 Absolute Neutrophils (1.2-6.7) 10^3/uL 12.33 H Absolute Lymphocytes (1.2-3.4) 10^3/uL 0.33 L Absolute Monocytes (0.1-0.8) 10^3/uL 1.10 H Absolute Eosinophils (0.0-0.7) 10^3/uL 0.00 Absolute Basophils (0.0-0.2) 10^3/uL 0.03 VBG Lactate (0.6-1.4) mmol/L 1.3 Sodium (136-145) mmol/L 139 Potassium (3.5-5.1) mmol/L 3.4 L Chloride (98-107) mmol/L 103 Carbon Dioxide (21.0-32.0) mmol/L 28.9 Anion Gap (3-11) mmol/L 7.1 BUN (7-18) mg/dL 20 H Creatinine (0.55-1.02) mg/dL 1.3 H Est GFR (CKD-EPI 2020) (mL/min/1.73m2) 46.21 Glucose (74-106) mg/dL 158 H Calcium (8.5-10.1) mg/dL 8.9 Magnesium (1.8-2.4) mg/dL 2.2 Total Bilirubin (0.2-1.0) mg/dL 0.70 AST (15-37) U/L 25 ALT (14-59) U/L 47 Alkaline Phosphatase (46-116) U/L 60 Total Protein (6.4-8.2) g/dL 6.6 Albumin (3.4-5.0) g/dL 3.3 L Lipase (16-77) U/L 23 TSH (0.36-3.74) uIU/mL 0.03 L Free T4 (0.76-1.46) ng/dL 0.89 Urine Color (Yellow) Yellow Urine Clarity (Clear) Clear Urine pH (5-8) 5.0 Ur Specific [place] (1.005-1.025) 1.025 Urine Protein (Neg-Trace) mg/dL Negative Urine Ketones (Negative) mg/dL 15 H Urine Blood (Negative) Negative Urine Nitrite (Negative) Negative Urine Bilirubin (Negative) Negative Urine Urobilinogen (Up to 0.2) mg/dL 0.2 Ur Leukocyte Esterase (Negative) Negative Urine Glucose (Negative) mg/dL Negative Quality:SDOH Health Related Social Needs: No Data to Display Critical Care Time Critical Care Time Critical Care Time: Yes Total Critical Care Time: 40 Attestation: I spent greater than 40 minutes addressing this patient's immediate life threats. Please see MDM section of note. This time was spent engaged in work directly related to the patient's care, exclusive of separate procedures, and failure to initiate these interventions would have likely resulted in clinically significant or life threatening deterioration in the patient's condition. PFSH All Active Problems (Updated 01/09/24 @ 15:15 by Federico Varela MD) Atrial fibrillation, new onset (Acute) Splenic infarction (Acute) Medical History Hypothyroidism Sebaceous cyst head Hx of hiatal hernia Surgical History pilar cyst (10/11/17) Oophrectomy, Both Xi Fundoplication Excision, Scalp Mass 06/10/17 Colonoscopy - MAC (12/03/16) Cholecystectomy Social History Smoking/Tobacco Use Status: Never Smoking risk assessment performed?: Yes Alcohol Intake: former Drug use: Never Housing: house Do you feel safe at home: Yes Do you feel safe in your relationship?: Yes
[2024-01-09 13:04] LABS: Lactate 1.3 mmol/L (0.6-1.4)
[2024-01-09] MEDS: Lactated Ringers 1,000 ML 1000 ML IV (13:05)
[2024-01-09 13:06] LABS: Abs Immature Grans 0.09 10^3/uL (0.0-0.06); Absolute Basophil Count 0.03 10^3/uL (0.0-0.2); Absolute Lymphocyte Count 0.33 10^3/uL (1.2-3.4); Basophils % 0.2 %; HCT 46.5 % (36.0-46.0); HGB 15.6 g/dL (11.2-15.7); Immature Grans % 0.6 %; Lymphocytes % 2.4 %; MCH 29.6 pg (27.0-33.0); MCHC 33.5 % (32.0-36.0); MCV 88 fL (80-95); Monocytes % 7.9 %; Neutrophils % 88.9 %; Platelet Count 189 10^3/uL (130-400); RBC 5.27 10^6/uL (3.93-5.22); RDW 13.9 % (11.7-14.6); RDW-SD 44.6 fL; WBC 13.87 10^3/uL (4.4-10.8)
[2024-01-09] MEDS: Ondansetron 4 MG/2 ML VIAL IVP (13:07)
[2024-01-09 13:08] LABS: Absolute Neutrophil Count 12.33 10^3/uL (1.2-6.7)
--- NOTE | 2024-01-09 13:15 | DI.CT_ITS ---
Exam(s) CT CHEST PE ABD PELVIS W EXAM: CT CHEST PE ABD PELVIS W CLINICAL HISTORY: new afib, sob, recent travel, luq abd pain. TECHNIQUE: Imaging Protocol: Axial CT angiography was performed with multi-slice acquisition and m ulti-planar and/or 3D reconstructions. CONTRAST MATERIAL: Intravenous: Omnipaque 350 Contrast volume:100 ml Oral: None COMPARISON: CT UPPER ABD W/WO CONTRAST(P) from 02/15/2017 FINDINGS: CHEST: PULMONARY ARTERIES: There are no intra-arterial filling defects to suggest the presence of acute pulm onary emboli. LUNGS: There is no evidence of pulmonary infarction.No confluent infiltrates nor ominous pulmonary no dules. There are no pleural effusions. MEDIASTINUM: There is no hilar nor mediastinal adenopathy. There is a small-moderate size hiatal tee ia and there appears to been prior surgery at the GE junction level with surgical clips in this regio n evident. CARDIAC: There is cardiomegaly. No pericardial effusion. Caliber of thoracic aorta is upper normal. Left atrium appears enlarged. There is no calcification in the mitral valve annulus. OSSEOUS: No significant osseous lesions.No fractures.. ABDOMEN: There is no ascites. LIVER: There are no focal hepatic lesions nor dilatation of intrahepatic ducts. GALLBLADDER/BILIARY: The gallbladder is again noted to be surgically absent. CBD diameter slightly p rominent most probably consistent with post cholecystectomy status. There is no prominent dilatation of intrahepatic ducts. PANCREAS: No evidence of pancreatic mass nor dilatation of the pancreatic duct. SPLEEN: Spleen size is normal. There is abnormal enhancement pattern in the spleen evident which may reflect areas of splenic infarction. There is no obvious occlusion of the splenic artery. Splenic and portal veins are patent. Splenic and portal veins are patent. ADRENALS: There are no significant adrenal masses. KIDNEYS:No evidence of renal infarctions. No focal findings in the kidneys. No calculi nor hydronep hrosis. No solid renal masses. Ureters are not dilated. Some relatively uniform thickening of the u rinary bladder is noted but probably related to under distension. ABDOMINAL AORTA: No significant atherosclerotic involvement. No aneurysms. No narrowing of the alok ac and superior mesenteric artery takeoff points and no evidence of emboli within the SMA. The infer ior mesenteric artery is patent. No significant atherosclerotic stenosis at the aortic bifurcation n or within the iliac arteries. LYMPH NODES: There is no retroperitoneal or para-aortic adenopathy. ABDOMINAL WALL/GI: No evidence of significant anterior abdominal wall hernia. No bowel obstruction. PELVIS: LYMPH NODES: There is no intrapelvic nor inguinal adenopathy. GI: No evidence of appendicitis.There is extensive diverticulosis of the sigmoid but no evidence of o bvious acute diverticulitis. URINARY BLADDER: No calculi nor masses evident REPRODUCTIVE: Uterus and adnexal regions unremarkable. No free fluid. OSSEOUS: No significant osseous lesions. No fractures nor listhesis. No pars defects. There is some calcification noted within the L4-5 and L5-S1 discs but these discs are not diminished in height and do not contain vacuum phenomena. Some d egenerative vacuum phenomena is noted in the L4-5 facet joints. IMPRESSION: 1. No evidence of acute pulmonary emboli nor pulmonary infarction. No infiltrates nor pleural effusi ons. 2. Cardiomegaly. No pericardial effusion 3. The main finding in the abdomen-pelvis is abnormal enhancement pattern of the spleen which is susp icious for splenic infarctions. Spleen size is normal. There is no obvious occlusion of the splenic artery. Splenic vein is also patent and exhibits normal size/diameter. 4. Previous cholecystectomy. Mild dilatation of the CBD probably related to post cholecystectomy sta tus. 5. Evidence of previous surgery at GE junction level. There is a moderate size hiatal hernia again n oted. Report called by myself to ER physician 01/09/2024 2:52 p.m. RADIATION DOSE DELIVERED: 1,687.89mGy.cm Total DLP DATA REPOSITORY: All CT scans at this facility are submitted to the National Radiology Data Registry (NRDR) Dose Index Registry (DIR) with the [employer] (ACR). RADIATION OPTIMIZATION: All CT scans at this facility use at least one of these dose optimization te chniques: automated exposure control; mA and/or kV adjustment per patient size (includes targeted exa ms where dose is matched to clinical indication); or iterative reconstruction.
[2024-01-09 13:21] LABS: ALT 47 U/L (14-59); AST 25 U/L (15-37); Albumin 3.3 g/dL (3.4-5.0); Alkaline Phosphatase 60 U/L (46-116); Anion Gap 7.1 mmol/L (3-11); BUN 20 mg/dL (7-18); CO2 28.9 mmol/L (21.0-32.0); CREATININE 1.3 mg/dL (0.55-1.02); Calcium 8.9 mg/dL (8.5-10.1); Chloride 103 mmol/L (98-107); Estimated GFR 46.21 (mL/min/1.73m2); Glucose 158 mg/dL (74-106); Lipase 23 U/L (16-77); Magnesium 2.2 mg/dL (1.8-2.4); Potassium 3.4 mmol/L (3.5-5.1); Sodium 139 mmol/L (136-145); Total Protein 6.6 g/dL (6.4-8.2)
[2024-01-09 13:58] LABS: TSH (W/Ref FT4) 0.03 uIU/mL (0.36-3.74)
[2024-01-09] MEDS: Normal Saline - Diluent 50 ML VIAL IJ (14:02)
[2024-01-09] MEDS: Omnipaque 350 MG/ML 100 ML BTL IJ (14:03)
[2024-01-09 14:15] LABS: FREE T4 0.89 ng/dL (0.76-1.46)
--- NOTE | 2024-01-09 16:58 | W.PC.ACHO ---
Registration Status: Primary Language: Preferred Language: ED Information & Data Chief Complaint Abd Prob 01/09/24 13:57 Chief Complaint Abd Prob 01/09/24 12:58 Triage Note Pt states she started with 01/09/24 11:57 dysuria during the night and today awoke with abd pain, worse on the left, but across all quadrants. BM this morning normal, denies pain or burning today. Reports the pain feels like gas pressure, has been passing gas and belching. Feels like when I had my gallbladder issue. Endorses nausea. Medical / Surgical History (Last Reviewed 01/09/24 @ 12:57 by Federico Varela MD) Hypothyroidism Sebaceous cyst Hx of hiatal hernia (Last Reviewed 01/09/24 @ 12:57 by Federico Varela MD) pilar cyst (10/11/17) Oophrectomy, Both Xi Fundoplication Excision, Scalp Mass Colonoscopy - MAC (12/03/16) Cholecystectomy Most Recent Vital Signs Temperature 36.8 C 01/09/24 13:59 Temperature Source Tympanic 01/09/24 11:57 Pulse 85 01/09/24 16:02 Pulse 114 H 01/09/24 16:10 Respiratory Rate 18 01/09/24 16:10 Respiratory Effort Short of Breath 01/09/24 13:57 Blood Pressure 166/86 H 01/09/24 16:02 Blood Pressure Mean 103 01/09/24 16:02 Blood Pressure Position Sitting 01/09/24 11:57 Pulse Oximetry 99 01/09/24 16:10 Oxygen Delivery Method Room Air 01/09/24 13:59 Oxygen Flow Rate 0 01/09/24 11:57 Pain Level 8 01/09/24 13:59 Allergies phenytoin sodium (From Dilantin) Allergy (Severe, Unverified 01/09/24 12:04) Hives phenytoin sodium extended (From Dilantin) Allergy (Severe, Unverified 01/09/24 12:04) Hives multiple chemical sensitivites Adverse Reaction (Intermediate, Uncoded 01/09/24 12:04) upper Resp. issues FISHER, congestion Precautions Isolation Standard precaution 01/09/24 13:57 Active Medications Generic Name Dose Route Start Last Admin Trade Name Freq PRN Reason Stop Dose Admin Iohexol 100 ml 01/09/24 14:15 01/09/24 14:03 Omnipaque 350 Mg/Ml 100 Ml Btl IJ 02/08/24 23:59 100 ml DIRECTED ELAINE Administration Sodium Chloride 50 ml 01/09/24 14:15 01/09/24 14:02 Normal Saline - Diluent 50 Ml Vial IJ 50 ml .FOR DI USE ELAINE Administration IV IV Catheter Type [Right Peripheral IV Antecubital] IV Catheter Gauge [Right 18 Antecubital] Diet Orders Category Date Time Status Regular/Normal [DIET] Nutrition 01/09/24 Dinner Active Diagnostics 01/09/24 01/09/24 Range/Units 13:00 12:15 WBC 13.87 H (4.4-10.8) 10^3/uL RBC 5.27 H (3.93-5.22) 10^6/uL Hgb 15.6 (11.2-15.7) g/dL Hct 46.5 H (36.0-46.0) % MCV 88 (80-95) fL MCH 29.6 (27.0-33.0) pg MCHC 33.5 (32.0-36.0) % RDW 13.9 (11.7-14.6) % Plt Count 189 (130-400) 10^3/uL MPV 10.0 (8.0-11.0) fL Immature Gran % 0.6 % Neutrophils % 88.9 % Lymphocytes % 2.4 % Monocytes % 7.9 % Eosinophils % 0.0 % Basophils % 0.2 % Nucleated RBC % 0.0 (0.0-0.3) % Absolute Neutrophils 12.33 H (1.2-6.7) 10^3/uL Absolute Lymphocytes 0.33 L (1.2-3.4) 10^3/uL Absolute Monocytes 1.10 H (0.1-0.8) 10^3/uL Absolute Eosinophils 0.00 (0.0-0.7) 10^3/uL Absolute Basophils 0.03 (0.0-0.2) 10^3/uL VBG Lactate 1.3 (0.6-1.4) mmol/L Sodium 139 (136-145) mmol/L Potassium 3.4 L (3.5-5.1) mmol/L Chloride 103 (98-107) mmol/L Carbon Dioxide 28.9 (21.0-32.0) mmol/L Anion Gap 7.1 (3-11) mmol/L BUN 20 H (7-18) mg/dL Creatinine 1.3 H (0.55-1.02) mg/dL Est GFR (CKD-EPI 2020) 46.21 (mL/min/1.73m2) Glucose 158 H (74-106) mg/dL Calcium 8.9 (8.5-10.1) mg/dL Magnesium 2.2 (1.8-2.4) mg/dL Total Bilirubin 0.70 (0.2-1.0) mg/dL AST 25 (15-37) U/L ALT 47 (14-59) U/L Alkaline Phosphatase 60 (46-116) U/L Total Protein 6.6 (6.4-8.2) g/dL Albumin 3.3 L (3.4-5.0) g/dL Lipase 23 (16-77) U/L TSH 0.03 L (0.36-3.74) uIU/mL Free T4 0.89 (0.76-1.46) ng/dL Urine Color Yellow (Yellow) Urine Clarity Clear (Clear) Urine pH 5.0 (5-8) Ur Specific [place] 1.025 (1.005-1.025) Urine Protein Negative (Neg-Trace) mg/dL Urine Ketones 15 H (Negative) mg/dL Urine Blood Negative (Negative) Urine Nitrite Negative (Negative) Urine Bilirubin Negative (Negative) Urine Urobilinogen 0.2 (Up to 0.2) mg/dL Ur Leukocyte Esterase Negative (Negative) Urine Glucose Negative (Negative) mg/dL Intake and Output - 24 Hour Total 01/09/24 11:43 thru 01/09/24 13:01 Intake Total 10 Balance 10 Weight 130.7 kg Intake: IV 10 Falls Risk Assessment Contributing Factors No Factors 01/09/24 13:51 Fall Total Score 0 01/09/24 13:51 Level of Risk Standard/Low Risk 01/09/24 13:51 v v v v v v v v v Sending and/or Receiving Nurses: Please use comment section below to note any information pertinent to the patient hand-off not included above. Information / Comments: 18g LAC, nausea treated with zofran, pain 7/10 left abd, afib on monitor at 102, A&Ox3 Report received from:Madeline in the ER
--- NOTE | 2024-01-09 17:16 | W.PM.HP.N ---
Date of service: 01/09/24 Time of Service: 17:16 Assessment and Plan Assessment and plan (1) Splenic infarction: Status: Acute Assessment and plan: This is likely secondary to the new atrial fibrillation. She has no signs of infection and no other known risk factors for splenic infarct. I agree with enoxaparin to start, then transition to DOAC. Treat pain and nausea. (2) Atrial fibrillation, new onset: Status: Acute Assessment and plan: Mildly/borderline tachycardic. Per history this likely started on recent trip. Will monitor and start rate control if needed. [id number] 3 because of the embolism, starting anticoagulation, which should be indefinite. Travel to high altitude with lower oxygen was likely trigger, BMI also risk factor for atrial fibrillation. (3) Secondary adrenal insufficiency: Status: Acute Assessment and plan: She is on corticosteroid, continue stress dosing (3 x home dosing) with acute event. she is on growth hormone agonist, I cannot see that this is related to thrombosis risk thyroid management as below. 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 No change in dose. History of Present Illness History of Present Illness Chief Complaint: abdominal pain Narrative: 63 yo F with history of surgical panhypopituitarism, s/p cholecystectomy, who presents with 2 days of abdominal pain. She states she started feeling unwell while she was out at a retreat in [place], [place] 12/30-. Was fatigued and short of breath, which she presumed was related to altitude sickness. She took prescribed acetazolamide during that time, as well as stress dosing of her hydrocortisone (3x daily dosing). After flying home, she felt a little better yesterday until she started with acute crampy epigastric abdominal pain. Pain has been there since yesterday. Not associated with eating or changes in stooling or urination. No radiation. Associated with some nausea. She has not had chest pain or clear palpitations. She hasn't changed her medications other than what is above. Review of Systems All systems reviewed & are unremarkable except as noted in HPI and below PFSH All Active Problems (Updated 01/09/24 @ 19:59 by Mehran Prather) Secondary adrenal insufficiency (Acute) Atrial fibrillation, new onset (Acute) Splenic infarction (Acute) Medical History (Updated 01/09/24 @ 19:59 by Mehran Prather) History of cerebral meningioma Class 3 obesity Hypothyroidism Sebaceous cyst head Hx of hiatal hernia Surgical History (Updated 01/09/24 @ 19:59 by Mehran Prather) S/P selective transsphenoidal pituitary adenomectomy pilar cyst (10/11/17) Oophrectomy, Both Xi Fundoplication Excision, Scalp Mass 06/10/17 Colonoscopy - MAC (12/03/16) Cholecystectomy Family History (Updated 01/09/24 @ 20:01 by Mehran Prather) Father Heart disease Mother Stroke Other Hyperlipidemia Social History (Updated 01/09/24 @ 20:00 by Mehran Prather) Smoking/Tobacco Use Status: Never Smoking risk assessment performed?: Yes Alcohol Intake: former Drug use: Never Housing: house Do you feel safe at home: Yes Do you feel safe in your relationship?: Yes Additional Social history: Lives with Fabio in [place]. Practices Reiki. Cares for Grandchild Meds Allergies and Home Medications Allergies Allergy/AdvReac Type Severity Reaction Status Date / Time phenytoin sodium (From Allergy Severe Hives Unverified 01/09/24 12:04 Dilantin) phenytoin sodium extended Allergy Severe Hives Unverified 01/09/24 12:04 (From Dilantin) multiple chemical AdvReac Intermediate upper Uncoded 01/09/24 12:04 sensitivites Resp. issues FISHER, congestion Home Medications ?Medication ?Instructions ?Recorded ?Confirmed ?Type cholecalciferol (vitamin D3) 50 2,000 unit PO DAILY 06/06/17 01/09/24 History mcg (2,000 unit) capsule (Vitamin D3) hydrocortisone 5 mg tablet 5 mg PO DAILY 06/06/17 01/09/24 History allopurinol 100 mg tablet mg 01/09/24 History somatropin 4 mg subcutaneous 2 mg subcut DAILY 01/09/24 01/09/24 History solution (Serostim) thyroid (pork) 30 mg tablet (JAVA MOBILE DEVELOPER 45 mg PO DAILY 01/09/24 01/09/24 History Thyroid) thyroid (pork) 60 mg tablet (JAVA MOBILE DEVELOPER 120 mg PO DAILY 01/09/24 01/09/24 History Thyroid) Exam Narrative Exam Narrative: GEN: Alert and oriented x 4, pleasant and cooperative, gives linear history. No acute distress at rest. HEENT: Head atraumatic. Conjunctiva clear, no icterus. PEERL, EOMI. no rhinorrhea. MMM, OP benign. Neck is supple with no masses or lymphadenopathy, trachea midline LUNGS: CTAB with normal effort CV: mildly tachycardic, irregularly irregular, with no murmurs, gallops, or rubs. ABD: active bowel sounds, soft, mild to moderate epigastric tenderness, nondistended. No masses. EXT: no cyanosis, clubbing, or edema. warm, not tender MSK: No joint redness or swelling NEURO: CN 2-12 grossly intact. Normal movement of 4 extremities. Normal speech and coordination. No tremor SKIN: No rashes or open wounds. PSYCH: normal mood and affect Results Imaging CT scan - chest: report reviewed (1. No evidence of acute pulmonary emboli nor pulmonary infarction. No infiltrates nor pleural effusions. 2. Cardiomegaly. No pericardial effusion) EKG: report reviewed (A-fib 102 bpm, T wave flattening with inversions laterally V5 and V6.) and image reviewed Imaging Studies: CT Abd/Pelvis: 3. The main finding in the abdomen-pelvis is abnormal enhancement pattern of the spleen which is suspicious for splenic infarctions. Spleen size is normal. There is no obvious occlusion of the splenic artery. Splenic vein is also patent and exhibits normal size/diameter. 4. Previous cholecystectomy. Mild dilatation of the CBD probably related to post cholecystectomy status. 5. Evidence of previous surgery at GE junction level. There is a moderate size hiatal hernia again noted. Labs 01/09/24 13:00 01/09/24 13:00 Labs: Laboratory Results - last 24 hr 01/09/24 01/09/24 12:15 13:00 WBC 13.87 H RBC 5.27 H Hgb 15.6 Hct 46.5 H MCV 88 MCH 29.6 MCHC 33.5 RDW 13.9 Plt Count 189 MPV 10.0 Immature Gran % 0.6 Neutrophils % 88.9 Lymphocytes % 2.4 Monocytes % 7.9 Eosinophils % 0.0 Basophils % 0.2 Nucleated RBC % 0.0 Absolute Neutrophils 12.33 H Absolute Lymphocytes 0.33 L Absolute Monocytes 1.10 H Absolute Eosinophils 0.00 Absolute Basophils 0.03 VBG Lactate 1.3 Sodium 139 Potassium 3.4 L Chloride 103 Carbon Dioxide 28.9 Anion Gap 7.1 BUN 20 H Creatinine 1.3 H Est GFR (CKD-EPI 2020) 46.21 Glucose 158 H Calcium 8.9 Magnesium 2.2 Total Bilirubin 0.70 AST 25 ALT 47 Alkaline Phosphatase 60 Total Protein 6.6 Albumin 3.3 L Lipase 23 TSH 0.03 L Free T4 0.89 Urine Color Yellow Urine Clarity Clear Urine pH 5.0 Ur Specific [place] 1.025 Urine Protein Negative Urine Ketones 15 H Urine Blood Negative Urine Nitrite Negative Urine Bilirubin Negative Urine Urobilinogen 0.2 Ur Leukocyte Esterase Negative Urine Glucose Negative Last Vital Signs Temp 36.2 C L 01/09/24 16:54 Pulse 102 H 01/09/24 16:54 Resp 21 01/09/24 16:54 BP 155/85 H 01/09/24 16:54 Pulse Ox 98 01/09/24 16:54 Time Spent Time spent with Patient: 55-74 minutes Time was spent: preparing to see the patient(eg.review tests), obtaining and/or reviewing separately otained hiistory, ordering medications,tests, procedures, referring, communicating with other health customer care associate, indepentently interpreting results, counseling the patient and care coordination
[2024-01-09] MEDS: MORPHine 4 MG/ML SYR IVP (19:10)
[2024-01-09] MEDS: Ondansetron O.D.T. 4 MG TABEF PO (19:11)
[2024-01-09] MEDS: oxyCODONE 5 mg/Acetaminophen 325 mg TAB 1 TAB PO (20:15)
[2024-01-09] MEDS: Normal Saline Flush 10 ML SYR IVP ×2 (20:17→21:57)
[2024-01-09] MEDS: Simethicone 80 MG CHEW PO (21:22)
[2024-01-09] MEDS: Metoprolol 5 MG/5 ML VIAL IVP (21:56)
[2024-01-09] MEDS: Hydrocortisone SOD SUC. 100 MG VIAL IVP (21:57)
[2024-01-10] MEDS: oxyCODONE 5 mg/Acetaminophen 325 mg TAB 1 TAB PO ×3 (00:33→14:29)
[2024-01-10 03:33] VITALS: BP 123/75; PULSE 88; RESP 18; TEMP 36.5; O2SAT 93
[2024-01-10] MEDS: Metoprolol 25 MG TAB PO ×2 (05:17→14:29)
[2024-01-10] MEDS: Hydrocortisone SOD SUC. 100 MG VIAL IVP (05:28)
[2024-01-10 07:23] LABS: Anion Gap 6.8 mmol/L (3-11); BUN 15 mg/dL (7-18); CO2 28.2 mmol/L (21.0-32.0); CREATININE 1.2 mg/dL (0.55-1.02); Calcium 8.7 mg/dL (8.5-10.1); Chloride 105 mmol/L (98-107); Estimated GFR 50.86 (mL/min/1.73m2); Glucose 150 mg/dL (74-106); Potassium 3.8 mmol/L (3.5-5.1); Sodium 140 mmol/L (136-145)
[2024-01-10] MEDS: MORPHine 4 MG/ML SYR IVP (07:32)
[2024-01-10] MEDS: Normal Saline Flush 10 ML SYR IVP (07:33)
[2024-01-10] MEDS: Ondansetron O.D.T. 4 MG TABEF PO (07:43)
[2024-01-10 07:55] VITALS: BP 126/110; PULSE 84; RESP 19; TEMP 35.9; O2SAT 96
[2024-01-10 09:24] VITALS: BP 113/78; PULSE 87; RESP 16; TEMP 36.7; O2SAT 95
[2024-01-10] MEDS: Thyroid 60 MG TAB 120 MG PO (09:45)
[2024-01-10] MEDS: Allopurinol 100 MG TAB PO (09:48)
[2024-01-10 10:01] VITALS: BP 130/82
[2024-01-10 10:50] VITALS: PULSE 108
[2024-01-10 11:14] VITALS: BP 133/75; PULSE 84; RESP 16; TEMP 35.5; O2SAT 94
--- NOTE | 2024-01-10 12:24 | NUR.NOTE ---
Assessment reviewed, in agreement with documentation by Tiera Lloyd LPN Student nurse. Angela Vasquez, MSN, RNC-OB (clinical instructor)
--- NOTE | 2024-01-10 15:06 | DSE_ITS ---
Date of service: 01/10/24 Time of Service: 15:06 DS: Diagnosis Discharge Diagnosis (1) Splenic infarction: Status: Acute (2) Atrial fibrillation, new onset: Status: Acute (3) Secondary adrenal insufficiency: Status: Acute (4) Hypothyroidism: Discharge Plan Disposition Patient Disposition: Home Condition: Good Discharge Details Reason For Visit: splenic infarct, atrial fibrillation Admit Date/Time: 01/09/24 16:15 Admit Provider: Mehran Prather Attending Provider: Mehran Prather [facility] Hospital Course: 63 yo F with history of surgical hypopituitarism who recented returned from a trip to [place] who presented with abdominal pain and fatigue and was found to have a splenic infarction and new atrial fibrillatoin. She was admitted and started on enoxaparin. Once she got to the floor, her pain was managed with oral oxycodone. Her pulse was initially 100-110 but she got up into the 150s on telemetry monitoring and she was given a dose of metoprolol IV and started on metoprolol tartrate 25mg TID with her heart rate settling in the 80s. She was discharged on 75mg daily of metoprolol succinate. Her echocardiogram showed mild diffuse hypokenesis but LVEF still 55%. Atrial enlargement also noted. No clots seen. She was given stress dose steroids. She felt confident she could manage her stress dose steroids on her own as an outpatient. Her free T4 was in range (TSH was low, which is expected in central hypothyroidism). Her [id number] was 3. Upon discharge, she was prescribed apixaban with initial treatment doses given the acute clot in the spleen. She undertands anticoagulation is likely lifetime. Cardiology referral to consider rhythm control options was placed at discharge. Home Meds and New Rx's Prescriptions: New oxycodone-acetaminophen 5-325 mg Tablet 1 tab PO Q4H PRN PRNQty: 18 0RF ondansetron 4 mg Tablet,Disintegrating 4 mg PO Q8H PRN PRNQty: 10 0RF apixaban 5 mg tablet See Rx Instructions .ROUTE .COMPLEX Qty: 72 1RF Rx Instructions: 10mg po BID for 6 days, then 5mg po BID metoprolol succinate 50 mg tablet extended release 24 hr 75 mg PO DAILY Qty: 45 2RF Continued hydrocortisone 5 MG tablet 5 mg PO DAILY cholecalciferol (vitamin D3) [Vitamin D3] 2,000 UNIT capsule 2,000 unit PO DAILY thyroid (pork) [CLOTHES SHAKER Thyroid] 60 mg tablet 120 mg PO DAILY thyroid (pork) [CLOTHES SHAKER Thyroid] 30 mg tablet 45 mg PO DAILY Serostim 4 mg recon soln 2 mg subcut DAILY allopurinol 100 mg tablet Patient Comments: TAKE ONE TABLET BY MOUTH EVERY DAY IN THE MORNING FOR GOUT Discharge Instructions Instructions: Atrial Fibrillation (DC) Additional Instructions: The oral blood thinner apixaban (Eliquis) was sent to the [facility] in [place]. You should take the first dose around 10pm on 01/09. Cardiology consult was placed to discuss options for managing the atrial fibrillation. You should follow up with your PCP in the next week or two as well. Stand Alone Forms: Nursing Discharge Form Referrals: Jacquelin Wood [Primary Care Provider] - (Please call your primary care provider to schedule a hospital discharge follow up appointment to be seen in 1- 2 weeks from discharge. ) Emiliana Stover MD [ [facility] STAFF PHYSICIAN] - (new atrial fibrillation, would like to discuss rhythm control) Activity:: Activity as Tolerated Equipment/Supplies:: No Equipment Needed Diet:: As Tolerated Discharge Orders Discharge Orders: Discharge Order (Routine); Ordered 01/10/24 Ordered By: Mehran Prather DS: Summary Time Spent with Patient providing and/or coordinating discharge services: Greater than 30 minutes Status at Discharge Functional status at discharge: independent ambulation Overall status at discharge: patient is back to baseline Mental Status: mental status grossly normal Speech and Movement: speech and movement normal Mood: congruent mood Affect: normal affect Quality:SDOH Health Related Social Needs: No Data to Display Exam Narrative Exam Narrative: GEN: Alert and oriented x 4. No acute distress at rest. LUNGS: CTAB with normal effort CV: mildly tachycardic, irregularly irregular, with no murmurs, gallops, or rubs. ABD: active bowel sounds, soft, more mild epigastric tenderness, nondistended. No masses. EXT: no cyanosis, clubbing, or edema. warm, not tender Psych Mental Status: mental status grossly normal Speech and Movement: speech and movement normal Mood: congruent mood Affect: normal affect DS: Data Vitals/I&O Vitals and I&O: Vital Signs Temperature 35.5 C L 01/10/24 11:14 Temperature Source Temporal Artery Scan 01/10/24 11:14 Pulse 84 01/10/24 11:14 Pulse Rhythm Irregular 01/09/24 17:38 Pulse 113 H 01/09/24 16:53 Respiratory Rate 16 01/10/24 11:14 Respiratory Effort Short of Breath, Labored 01/09/24 17:38 Respiratory Depth Normal 01/09/24 17:38 Respiratory Pattern Normal 01/09/24 17:38 Blood Pressure 133/75 01/10/24 11:14 Blood Pressure Mean 117 01/09/24 16:53 Blood Pressure Position Sitting 01/09/24 11:57 Pulse Oximetry 94 01/10/24 11:14 Oxygen Delivery Method Room Air 01/10/24 11:14 Oxygen Flow Rate 0 01/10/24 11:14 Pain Level 0 01/10/24 11:14 Intake & Output 01/09/24 01/10/24 01/10/24 23:59 11:59 23:59 Intake Total 1280 / 1280 240 / 240 Output Total 200 / 200 1000 / 1000 Balance 1080 / 1080 -760 / -760 Intake: IV 1040 / 1040 Oral 240 / 240 240 / 240 Output: Urine 200 / 200 1000 / 1000 Other: Urine Color Yellow Yellow Urine Appearance Clear Clear Urine Odor Normal Normal Comment voidd in toilet Voiding Methods Toilet Toilet Data Completed and Pending Labs on day of discharge: Labs from last 24 hours 01/10/24 06:36 Sodium 140 Potassium 3.8 Chloride 105 Carbon Dioxide 28.2 Anion Gap 6.8 BUN 15 Creatinine 1.2 H Est GFR (CKD-EPI 2020) 50.86 Glucose 150 H Calcium 8.7 PFSH All Active Problems (Updated 01/09/24 @ 19:59 by Mehran Prather) Secondary adrenal insufficiency (Acute) Atrial fibrillation, new onset (Acute) Splenic infarction (Acute) Medical History (Updated 01/09/24 @ 19:59 by Mehran Prather) History of cerebral meningioma Class 3 obesity Hypothyroidism Sebaceous cyst head Hx of hiatal hernia Surgical History (Updated 01/09/24 @ 19:59 by Mehran Prather) S/P selective transsphenoidal pituitary adenomectomy pilar cyst (10/11/17) Oophrectomy, Both Xi Fundoplication Excision, Scalp Mass 06/10/17 Colonoscopy - MAC (12/03/16) Cholecystectomy Family History (Updated 01/09/24 @ 20:01 by Mehran Prather) Father Heart disease Mother Stroke Other Hyperlipidemia Social History (Updated 01/09/24 @ 20:00 by Mehran Prather) Smoking/Tobacco Use Status: Never Smoking risk assessment performed?: Yes Alcohol Intake: former Drug use: Never Housing: house Do you feel safe at home: Yes Do you feel safe in your relationship?: Yes Additional Social history: Lives with Fabio in [place]. Practices Emilia. Cares for Grandchild Time Spent with Patient Time Spent with Patient: <45 minutes Time was spent: preparing to see the patient(eg.review tests), obtaining and/or reviewing separately otained hiistory, ordering medications,tests, procedures, referring, communicating with other health respiratory care specialist, indepentently interpreting results, counseling the patient and care coordination
--- NOTE | 2024-01-10 15:49 | CHAPLAIN ---
Jacinda told me about her recent trip to [place] for a spiritual retreat when she began not feeling well. She attributed it to the altitude and being tired. It turned out she was in AFib and had a blood clot in her spleen. 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 Jacinda's had several health issues in the past and relies on her selfcare plan. She appears to be well supported by her and really enjoys spending time with her grandchildren who live in [place]. She was waiting to hear from her doctor about recommendations from [facility] and was expecting to be discharged soon.
== END 2024-01-10 15:47 | disposition home or self-care (01) ==
LOC: ER 16:53 → MS 01-10 08:56
PROVIDERS: Admitting Provider Family Medicine; Emergency Provider Student in an Organized Health Care Education/Training Program; PCP Nurse Practitioner; Visit Provider Family Medicine
DX: I48.91 Unspecified atrial fibrillation (principal); D73.5 Infarction of spleen; E03.9 Hypothyroidism, unspecified; Z79.52 Long term (current) use of systemic steroids; E27.3 Drug-induced adrenocortical insufficiency; T38.0X5A Adverse effect of glucocorticoids and synthetic analogues, initial encounter; E66.01 Morbid (severe) obesity due to excess calories; Z68.42 Body mass index [BMI] 45.0-49.9, adult
CPT/HCPCS: 00123; 36415; 71275; 74177; 80048; 80053; 83690; 93005; 96361; 96372; 96374; 96375; 99291; 81003; 83605; 83735; 84439; 84443; 85025; 93010; 93306; 99222; 99239; J1650; J1720; J2270; J2405; J3490

== ENCOUNTER 2024-01-20 13:45 | Outpatient (CLI) | payer BC, SELFPAY ==
--- NOTE | 2024-01-20 13:45 | RT.EKG_ITS ---
APPROVED REPORT Exam: Resting ECG Reason for Exam: a fib Patient Location: O HR:118 bpm ECG Measurements Heart Rate 118 AXIS NM [id number] P [id number] QRSd 90 QRS 50 QT 337 T 185 QTc 473 Conclusion Atrial fibrillation...V-rate 86-155, irreg A-activity Ventricular premature complex...V complex w/ short R-R interval Diffuse ST-T abnormalities
== END 2024-01-20 13:46 | disposition home or self-care (01) ==
LOC: DI.CARD 13:45
PROVIDERS: PCP Nurse Practitioner; Visit Provider Internal Medicine Cardiovascular Disease
DX: I48.91 Unspecified atrial fibrillation (principal)
CPT/HCPCS: 93010

== ENCOUNTER 2024-01-21 08:51 | Outpatient (CLI) | payer BC, SELFPAY ==
[2024-01-21 08:27] LABS: FREE T4 0.98 ng/dL (0.76-1.46); TSH 0.04 uIU/Ml (0.36-3.74)
[2024-01-21 08:35] LABS: Hemoglobin A1C 6.2 % (<5.7)
[2024-01-21 19:37] LABS: T3,Free 5.2 pg/mL (2.8-5.3)
[2024-01-23 12:42] LABS: Adrenocorticotropic Hormone, P 17 pg/mL
[2024-01-27 11:18] LABS: T3 (Triiodothyronine) Reverse 20 ng/dL (10-24)
== END 2024-01-21 08:52 | disposition home or self-care (01) ==
LOC: LBO 08:51
PROVIDERS: PCP Nurse Practitioner; Visit Provider Internal Medicine Endocrinology, Diabetes & Metabolism
DX: I48.19 Other persistent atrial fibrillation
CPT/HCPCS: 36415; 82306; 82533; 83519; 82024; 83036; 84439; 84443; 84481; 84482

== ENCOUNTER 2024-01-29 02:11 | Outpatient (CLI) | payer BC, SELFPAY ==
--- NOTE | 2024-01-29 | DI.MAMMO_ITS ---
Exam(s) MAMMO SCREENING EXAM: MAMMO SCREENING CLINICAL HISTORY: SCREENING MAMMO Z12.31 TECHNIQUE: Bilateral full field digital CC and MLO mammographic images were obtained with 3D tomosyn thesis and utilizing computer aided detection (CAD). COMPARISON: Available for comparison. FINDINGS: Masses/Architectural Distortion: None seen. Microcalcifications: No suspicious pleomorphic-type are seen. Skin Thickening/Nipple Retraction: None. IMPRESSION: 1. No significant interval change with no specific features of malignancy noted. 2. Unless there is more urgent need, screening mammography is recommended, as per [employer] guidelines. BI-RADS Category 1 - Negative Breast Density - Category A - Almost entirely fatty Breast density category C or D implies that the patient has dense breast tissue. Dense breast tissue is very common and is not abnormal but dense breast tissue can make it harder to find cancer on a ma mmogram. Also, dense breast tissue may increase their breast cancer risk. This information about the result of the mammogram report was provided to the patient to raise their awareness. Use this report when you speak with the patient about their risks for breast cancer, which includes their family hist ory. At that time, you may recommend for more screening tests (Ultrasound or MRI) as they might be us eful based on their risk. A negative radiographic report should not delay biopsy if a dominant or clinically suspicious mass is present. Up to ten percent of cancers are not identified on mammography. A negative report may reinforce clinical impression. Adenosis and dense breasts may obscure an underlying neoplasm. False positive reports average 6 to 10%. Patient will receive a letter notifying them of these results.
== END 2024-01-29 02:31 ==
LOC: DI 02:11
PROVIDERS: PCP Family Medicine; Visit Provider Family Medicine
DX: Z12.31 Encounter for screening mammogram for malignant neoplasm of breast (principal)
CPT/HCPCS: 77063; 77067

== ENCOUNTER 2024-02-11 14:33 | Outpatient (CLI) | payer BC, SELFPAY ==
[2024-02-17 15:11] LABS: IGF-1, LC/MS, S 264 ng/mL (35-201); Z-score 2.33 SD
== END 2024-02-11 14:34 | disposition home or self-care (01) ==
LOC: LBO 14:35
PROVIDERS: PCP Family Medicine; Visit Provider Internal Medicine Endocrinology, Diabetes & Metabolism
DX: D73.5 Infarction of spleen (principal); I48.91 Unspecified atrial fibrillation
CPT/HCPCS: 84305

== ENCOUNTER 2024-02-27 09:10 | Outpatient (CLI) | payer BC, SELFPAY ==
--- NOTE | 2024-02-27 09:00 | RT.EKG_ITS ---
APPROVED REPORT Exam: Resting ECG Reason for Exam: AFIB Patient Location: O HR:72 bpm ECG Measurements Heart Rate 72 AXIS NH [id number] P [id number] QRSd 123 QRS 36 QT 389 T 115 QTc 426 Conclusion Atrial fibrillation...V-rate 60- 82, irreg A-activity Nonspecific intraventricular conduction delay...QRSd >115mS, not LBBB/RBBB Minor nonspecific ST-T abnormalities
== END 2024-02-27 09:11 | disposition home or self-care (01) ==
LOC: DI.CARD 09:10
PROVIDERS: PCP Family Medicine; Visit Provider Internal Medicine Cardiovascular Disease
DX: I48.19 Other persistent atrial fibrillation (principal)
CPT/HCPCS: 93010

== ENCOUNTER 2024-03-27 10:52 | Outpatient (CLI) | payer BC, SELFPAY ==
[2024-03-27 09:10] LABS: Hemoglobin A1C 6.2 % (<5.7)
[2024-03-27 09:21] LABS: FREE T4 0.74 ng/dL (0.76-1.46); TSH 0.15 uIU/mL (0.36-3.74)
[2024-03-27 10:32] LABS: Vitamin D 25 Total 25.2 ng/mL (30-100)
[2024-03-27 18:02] LABS: T3,Free 4.5 pg/mL (2.8-5.3)
[2024-03-30 12:20] LABS: Adrenocorticotropic Hormone, P 18 pg/mL
[2024-04-01 12:21] LABS: T3 (Triiodothyronine) Reverse 16 ng/dL (10-24)
[2024-04-01 13:25] LABS: IGF-1, LC/MS, S 170 ng/mL (35-201); Z-score 1.65 SD
== END 2024-03-27 10:53 | disposition home or self-care (01) ==
LOC: LBO 10:53
PROVIDERS: PCP Family Medicine; Visit Provider Internal Medicine Endocrinology, Diabetes & Metabolism
DX: E24.9 Cushing's syndrome, unspecified (principal)
CPT/HCPCS: 36415; 82306; 82533; 82024; 83036; 84305; 84439; 84443; 84481; 84482

== ENCOUNTER 2024-06-11 04:57 | Inpatient (IN) | payer BC, SELFPAY ==
[2024-06-11] VITALS (107 sets, daily range): BP systolic 96–188; BP diastolic 41–136; PULSE 48–68; RESP 3–39; TEMP 36.4–37.9; O2SAT 2–97
--- NOTE | 2024-06-11 04:45 | RT.EKG_ITS ---
APPROVED REPORT Exam: Resting ECG Reason for Exam: chest pain Patient Location: E HR:56 bpm ECG Measurements Heart Rate 56 AXIS [place] 139 P 52 QRSd 103 QRS 83 QT 457 T 100 QTc 455 Conclusion Sinus rhythm...normal P axis, V-rate 60- 99 Atrial premature complex...SV complex w/ short R-R interval Sinus pause...long R-R interval, normal QRSd Nonspecific repol abnormality, lateral leads...ST dep, T neg, I aVL V5 V6 I have reviewed and interpreted ECG and agree with software generated interpretation.
--- NOTE | 2024-06-11 04:58 | W.ED.GENAD ---
Discharge Plan Disposition Condition: Stable Discharge Details Chief Complaint: Epigastric Pain/Over45 Clinical Impression: Cough with hemoptysis, Ground glass opacity present on imaging of lung Primary Care Provider: Irina Lovell ED Provider: Josh Bennett Baker Medilya and New Rx's Prescriptions: No Action apixaban 5 mg tablet 5 mg .ROUTE BID Qty: 180 3RF Rx Instructions: 5 mg twice a day; prednisone 1 mg tablet 2 mg PO .AM Patient Comments: 1 mg PO at HS famotidine 40 mg tablet 40 mg PO DAILY metoprolol succinate 100 mg tablet extended release 24 hr 100 mg PO BID Qty: 180 3RF hydrocortisone 5 MG tablet 5 mg PO DAILY amiodarone 400 mg tablet 400 mg PO DAILY Patient Comments: TAKE 1 TABLET BY MOUTH DAILY zolpidem 5 mg tablet 5 mg PO QHS Patient Comments: TAKE 1 TO 2 TABLETS BY MOUTH AT NIGHT NEEDED FOR SLEEP STUDY Norditropin FlexPro 10 mg/1.5 mL (6.7 mg/mL) pen injector 0.2 mg SUBCUT .COMPLEX Rx Instructions: 0.2 mg subcutaneously 3xs/week; thyroid (pork) [[employer] Thyroid] 60 mg tablet 120 mg PO DAILY thyroid (pork) [[employer] Thyroid] 30 mg tablet 45 mg PO DAILY allopurinol 100 mg tablet 100 mg PO BID Patient Comments: TAKE ONE TABLET BY MOUTH EVERY DAY IN THE MORNING FOR GOUT HPI General Mode of arrival: ambulatory. Date/Time Provider Initiated Documentation: 06/11/24 04:58. Limitations to Documentation: no limitations. Information obtained by: patient, RN notes reviewed and old records reviewed. HPI Narrative: Patient presents to ED with complaint of coughing up blood as well as epigastric/upper abdominal pain. She reports having a cardioversion on Saturday. She received extra steroids on that day due to her adrenal insufficiency. On Saturday she reports feeling well. Yesterday began to feel unwell and again took emergency doses of steroids. She has begun coughing and is bringing up what she describes as clots. She feels a little short of breath. She has upper abdominal pain but no nausea or vomiting. She is passing gas from below. She remains on apixaban which she has been on since December. Related Data Home Medications ?Medication ?Instructions ?Recorded ?Confirmed hydrocortisone 5 mg tablet 5 mg PO DAILY 06/06/17 06/11/24 allopurinol 100 mg tablet 100 mg PO BID 01/09/24 06/11/24 thyroid (pork) 30 mg tablet ([employer] 45 mg PO DAILY 01/09/24 06/11/24 Thyroid) thyroid (pork) 60 mg tablet ([employer] 120 mg PO DAILY 01/09/24 06/11/24 Thyroid) famotidine 40 mg tablet 40 mg PO DAILY 01/20/24 06/11/24 metoprolol succinate 100 mg 100 mg PO BID #180 tabs 01/20/24 06/11/24 tablet,extended release 24 hr prednisone 1 mg tablet 2 mg PO .AM 01/20/24 06/11/24 apixaban 5 mg tablet 5 mg .Route BID #180 tabs 02/10/24 06/11/24 amiodarone 400 mg tablet 400 mg PO DAILY 06/11/24 06/11/24 somatropin 10 mg/1.5 mL (6.7 0.2 mg subcut .COMPLEX 06/11/24 06/11/24 mg/mL) subcutaneous pen injector (Norditropin FlexPro) zolpidem 5 mg tablet 5 mg PO QHS 06/11/24 06/11/24 Previous Rx's ?Medication ?Instructions ?Recorded metoprolol succinate 100 mg 100 mg PO BID #180 tabs 01/20/24 tablet,extended release 24 hr apixaban 5 mg tablet 5 mg .Route BID #180 tabs 02/10/24 Allergies Allergy/AdvReac Type Severity Reaction Status Date / Time phenytoin sodium (From Allergy Severe Hives Verified 02/27/24 10:49 Dilantin) phenytoin sodium extended Allergy Severe Hives Verified 02/27/24 10:49 (From Dilantin) multiple chemical AdvReac Intermediate upper Uncoded 02/27/24 10:49 sensitivites Resp. issues FISHER, congestion General CEM: 3 Exam Narrative Exam Narrative: Const: Obese female in NAD. VS per triage. HEENT: NC/AT. Normal facial exam. Neck: Supple. Trachea midline. Lungs: Normal respiratory effort. Lungs are clear. Cor: RRR without murmur. Good radial pulses. GI: Soft/ND/NT. Neuro: A+O x 3. Normal speech, mentation, gait. Cranial nerves II - XII grossly intact. No gross motor or sensory deficit. Ext: No C/C/E. Medical Decision Making Patient presenting to ED with complaint of coughing up blood clots, epigastric/upper abdominal pain, mild shortness of breath. She is found to be slightly febrile here 100.2. She had an ablation on Saturday and remains in sinus rhythm with nonspecific ST changes. She took emergency dosing of steroids on that day. She was fine on Saturday. Had to take emergency dosing of steroids because of sweats, chills, diarrhea. She states that she does not feel ill otherwise but has not had problems with cough or blood clots previously. She does remain on apixaban. My suspicion is that she likely has influenza as most of the [facility] does. Because of her anticoagulation she is having some clots. However, we should be prudent and be sure there is no significant bleeding or abdominal issue given her complaint of upper abdominal pain. IV established. Laboratory studies including troponins will be obtained. CTA of the chest with follow-up CT abdomen pelvis ordered. Nasal swab sent. Patient is now requiring nasal cannula oxygen. White count and hemoglobin are normal. Chemistries and renal function are fine. Troponin x [address] sw[address] negative[address] scan discussed with radiology. Patient noted to have areas of groundglass opacity and mosaic changes consistent with pneumonitis, pneumonia, possibly pulmonary hemorrhage. However, patient is still only having some clots when she coughs. She did take her Eliquis this morning. I do not think she requires nebulized TXA or reversal with Kcentra at this point. Will go ahead and start her on Unasyn as there is some concern for possible aspiration during her cardioversion though seems unlikely. She is also noted to have a new hypodense area in her spleen suggesting possibility of another infarct. Her arteries are otherwise patent throughout. She is not having pain in the left upper quadrant like she did with her original infarct. She does have evidence of diarrheal disease which she reports she began having yesterday. I have discussed these findings with patient and her . Patient will be signed out to my colleague, Dr. Calix. CT images have been sent to [facility]. We have asked for consult with cardiology, Dr. Machado or whoever is covering the electrocardioversion team today. Medical Records Medical records reviewed: Yes I reviewed the patient's medical records. Medical records narrative: previous admit last fall with onset of afib; cardiolgy notes from here Lab Data Lab results reviewed: Yes I reviewed the patient's lab results. Lab results narrative: see MDM ECG Data Attestation: I personally reviewed and interpreted this ECG (s) as follows: Prior ECG tracings: available for review Interpretation: see MDM/EKG PFSH All Active Problems (Updated 06/11/24 @ 08:01 by Josh Bennett MD) Ground glass opacity present on imaging of lung (Acute) Cough with hemoptysis (Acute) Medical History Secondary adrenal insufficiency Splenic infarction Atrial fibrillation History of cerebral meningioma Class 3 obesity Hypothyroidism Hx of hiatal hernia Surgical History S/P selective transsphenoidal pituitary adenomectomy pilar cyst (10/11/17) Oophrectomy, Both Xi Fundoplication Excision, Scalp Mass 06/10/17 Colonoscopy - MAC (12/03/16) Cholecystectomy Family History Father Heart disease Mother Stroke Other Hyperlipidemia Social History Smoking/Tobacco Use Status: Never Smoking risk assessment performed?: Yes Alcohol Intake: former Drug use: Never Substance use type: does not use Housing: house Do you feel safe at home: Yes Do you feel safe in your relationship?: Yes Additional Social history: Lives with Fabio in [place]. Practices [facility]. Cares for Grandchild
[2024-06-11 05:26] LABS: Abs Immature Grans 0.02 10^3/uL (0.0-0.06); Absolute Basophil Count 0.04 10^3/uL (0.0-0.2); Absolute Eosinophil Count 0.05 10^3/uL (0.0-0.7); Absolute Lymphocyte Count 0.49 10^3/uL (1.2-3.4); Absolute Monocyte Count 0.76 10^3/uL (0.1-0.8); Absolute Neutrophil Count 6.76 10^3/uL (1.2-6.7); Basophils % 0.5 %; Eosinophils % 0.6 %; HCT 46.4 % (36.0-46.0); Immature Grans % 0.2 %; MCH 29.3 pg (27.0-33.0); MCHC 32.3 % (32.0-36.0); MCV 91 fL (80-95); Monocytes % 9.4 %; Neutrophils % 83.3 %; Platelet Count 205 10^3/uL (130-400); RBC 5.12 10^6/uL (3.93-5.22); RDW 13.8 % (11.7-14.6); RDW-SD 46.5 fL; WBC 8.12 10^3/uL (4.4-10.8)
[2024-06-11 05:42] LABS: ALT 32 U/L (14-59); AST 16 U/L (15-37); Albumin 3.2 g/dL (3.4-5.0); Alkaline Phosphatase 62 U/L (46-116); Anion Gap 9.3 mmol/L (3-11); BUN 15 mg/dL (7-18); Bilirubin, Total 1.16 mg/dL (0.2-1.0); CO2 31.7 mmol/L (21.0-32.0); CREATININE 1.3 mg/dL (0.55-1.02); Calcium 9.1 mg/dL (8.5-10.1); Chloride 103 mmol/L (98-107); Estimated GFR 46.21 (mL/min/1.73m2); Glucose 126 mg/dL (74-106); Sodium 144 mmol/L (136-145); Total Protein 6.6 g/dL (6.4-8.2)
[2024-06-11 05:45] LABS: Troponin I 27 ng/L (<or=51)
[2024-06-11] MEDS: Omnipaque 350 MG/ML 100 ML BTL IJ (05:59)
[2024-06-11] MEDS: Normal Saline - Diluent 50 ML VIAL IJ (06:00)
--- NOTE | 2024-06-11 06:00 | DI.CT_ITS ---
Exam(s) CT CHEST PE ABD PELVIS W EXAM: CT CHEST PE ABD PELVIS W CLINICAL HISTORY: coughing up blood, upper abd pain. TECHNIQUE: Imaging Protocol: Axial CT angiography was performed with multi-slice acquisition and mu lti-planar and/or 3D reconstructions. Computer aided detection (CAD) was utilized. CONTRAST MATERIAL: Intravenous: Omnipaque 350 Contrast volume:100 ml COMPARISON: CT CT CHEST PE ABD PELVIS W from 01/09/2024 FINDINGS: CHEST: Pulmonary Arteries: No evidence of filling defects to suggest pulmonary emboli. Tracheobronchial tree: No bronchiectasis or mucus plugging. Mediastinum and Laina: No dominant adenopathy or fluid collection. Pulmonary parenchyma: Limited evaluation due to expiratory changes and respiratory motion. Patchy bi lateral infiltrates. No consolidation or dominant measurable mass. Pleura: Small bilateral pleural effusions. No pneumothorax. Heart: The heart is moderately dilated. No coronary artery calcifications are seen. Aorta: Thoracic aorta non-dilated. Evidence of dissection Bones: Unremarkable for age. Tubes, Catheters, and Lines: None. Soft tissues: Unremarkable. ABDOMEN and PELVIS: Liver: Normal size. Normal density. No suspicious measurable mass. Portal, Superior Mesenteric, and Splenic Veins: Unremarkable. Gallbladder and Biliary Tract: Cholecystectomy. No biliary dilatation. Pancreas: Normal density, no abnormal calcifications or inflammatory process. Spleen: Prior splenic infarct. Adrenals: No masses seen. Kidneys: Normal size, contour and axis. No radiodense stones. No obstructive uropathy. No masses seen . Vasculature: Abdominal aorta non-dilated. Bowel: Suture material at GE junction. The small bowel is unremarkable. There is some fluid in the colon which could indicate diarrheal illness. No obstruction or bowel wall thickening. Appendix is u nremarkable. Diverticulosis of the sigmoid without evidence of diverticulitis. Peritoneal Cavity: No ascites, collection or mesenteric inflammatory response. Lymph Nodes: Within normal limits. Soft Tissues: Unremarkable. Bladder: Symmetric distention, no gross wall thickening. Reproductive Organs: Unremarkable as visualized. Bones: Unremarkable for age.. IMPRESSION: 1. No evidence of pulmonary embolism or aortic dissection.. 2. Bilateral upper and lower lobe infiltrates. 3. Cardiomegaly. Small bilateral pleural effusions. 4. Fluid seen in colon which is not abnormally distended, which could indicate diarrheal illness. Di verticulosis without evidence of diverticulitis. RADIATION DOSE DELIVERED: 2,034.71mGy.cm Total DLP DATA REPOSITORY: All CT scans at this facility are submitted to the National Radiology Data Registry (NRDR) Dose Index Registry (DIR) with the [employer] (ACR). RADIATION OPTIMIZATION: All CT scans at this facility use at least one of these dose optimization te chniques: automated exposure control; mA and/or kV adjustment per patient size (includes targeted exa ms where dose is matched to clinical indication); or iterative reconstruction.
[2024-06-11 06:02] LABS: COVID-19 PCR Negative (Negative); Influenza A PCR Negative (Negative); Influenza B PCR Negative (Negative); RSV PCR Negative (Negative)
[2024-06-11 06:42] LABS: Source Nasopharynx
[2024-06-11 06:52] LABS: Troponin I 24 ng/L (<or=51)
[2024-06-11] MEDS: Acetaminophen 500 MG TAB 1000 MG PO (07:00)
--- NOTE | 2024-06-11 07:44 | DI.VRAD_ITS ---
PROCEDURE INFORMATION: Exam: CTA Chest With Contrast CTA Abdomen With Contrast Exam date and time: 06/11/2024 5:48 AM Age: 63 years old Clinical indication: Abdominal pain; Localized; Prior surgery; Surgery date: 6+ months; Surgery type: Gallblader; Coughing up blood, upper abd pain TECHNIQUE: Imaging protocol: Computed tomographic angiography of the chest with contrast. Exam focused on the arteries. Computed tomographic angiography of the abdomen with contrast. Exam focused on the arteries. 3D rendering (Not supervised by radiologist): MIP and/or 3D reconstructed images were created by the technologist. Radiation optimization: All CT scans at this facility use at least one of these dose optimization techniques: automated exposure control; mA and/or kV adjustment per patient size (includes targeted exams where dose is matched to clinical indication); or iterative reconstruction. Contrast material: [id number]; Contrast volume: 100 ml; Contrast route: IV; COMPARISON: CT CHEST PE ABD PELVIS W 09/01/2024 14:11 FINDINGS: VASCULATURE: Pulmonary arteries: No filling defects in the pulmonary arteries to suggest pulmonary emboli. Aorta: No aortic aneurysm. No aortic dissection. Celiac trunk and mesenteric arteries: No occlusion or significant stenosis. Renal arteries: No occlusion or significant stenosis. CHEST: Lungs: Diffuse ground-glass opacities and mosaic attenuation with patchy areas of consolidation. Pleural spaces: Small bilateral pleural fluid collections. No pneumothorax. Heart: Unremarkable. No cardiomegaly. No pericardial effusion. ABDOMEN AND PELVIS: Liver: No mass. Gallbladder and biliary ducts: There has been a cholecystectomy.There is a mild, expected degree of common bile duct and intrahepatic ductal dilation. Pancreas: Unremarkable. No mass. No ductal dilation. Spleen: Wedge-shaped hypodensity with adjacent scarring in the subdiaphragmatic spleen consistent with splenic infarct. Adrenal glands: Unremarkable. No mass. Kidneys: Unremarkable kidneys. No solid mass. No hydronephrosis. Stomach and bowel: There is mild diverticulosis of the distal colon without acute diverticulitis. Postoperative changes at the gastroesophageal junction. Air-fluid levels throughout the small bowel and colon without dilatation consistent with a diarrheal illness. Intraperitoneal space: Unremarkable. No free air. No significant fluid collection. Lymph nodes: Unremarkable. No enlarged lymph nodes. Bones/joints: Unremarkable. No acute fracture. Soft tissues: Unremarkable. Other findings: No occlusion or significant stenosis of the included iliac arteries. IMPRESSION: 1. No evidence of pulmonary embolus. 2. Diffuse ground-glass opacities and mosaic attenuation with patchy areas of consolidation. Differential considerations include viral pneumonitis, pneumonia, aspiration. Pulmonary hemorrhage may present a similar picture. 3. Small bilateral pleural fluid collections. 4. Wedge-shaped hypodensity with adjacent scarring in the subdiaphragmatic spleen consistent with splenic infarct. Acute splenic infarcts are present in the comparison examination, that may account for the areas of scarring. The wedge-shaped hypodensity present on this examination, represents an infarct of unknown acuity. 5. Fluid throughout the small bowel and colon consistent with a diarrheal illness. Consider enteritis. 6. Findings were discussed with CATRACHITA LOPEZ at 06/11/2024 7:40 AM EST. Dictated and Authenticated by: Davonte Duenas MD. Orderin Donald Moreno MD
--- NOTE | 2024-06-11 07:51 | W.EDPROG ---
Date of service: 06/11/24 Time of Service: 07:51 Medical Decision Making Patient was signed out to me by my colleague Dr. Lopez, please refer to his HPI, physical exam, assessment and plan. We were pending contact from [facility] at time of signout. I did go and personally reassessed the patient. She feels stable. She states that she is not coughing up any blood clots anymore, she is coughing up very small amounts of blood intermittently, but feels that things are stabilizing. Currently she remains at 95% on 2 L, she is not tachypneic. Heart rate is 51, blood pressure normal. She appears hemodynamically stable at this time with no evidence of respiratory distress or imminent respiratory failure. I spoke with Chaz Monte of [facility] cardiology and discussed the case with him. He does recommend that the patient's Eliquis be held at this time. He feels that her stroke risk factors, considering her [id number] 2 score, are low enough at this time that the Eliquis can be stopped while she is being treated. We still do have continued concern for aspiration pneumonia/pneumonitis secondary to her recent procedure 4 days ago and now the CT findings. With no further signs of respiratory decline or failure, there is no current indication at this time for emergent pulmonary intervention. Patient has been given Unasyn for aspiration pneumonia. We will reach out to the hospitalist for admission here. Of note the patient does have a history of adrenal insufficiency, and did have to take extra hydrocortisone yesterday. I suspect with this current disease process she will need continued adrenal supplementation. Additionally the CT imaging did show evidence of wedge-shaped hypodensity in the spleen consistent with splenic infarct, radiology feels that this is more likely chronic than acute. She also shows evidence of enteritis on CT imaging. She has no abdominal pain at this time. No evidence of an acute surgical abdomen. 9:57 AM Discussed the case with the hospitalist Dr. Layne, he agrees with the assessment and plan. I have extensively reviewed the treatment plan with the patient. I have addressed all patient concerns at this time. I have also discussed the plan with the admitting physician and they agree with the current assessment and plan and have agreed to assume responsibility for the patient. All parties demonstrate verbal understanding and agreement with our assessment and plan at this time. The documentation in this chart was dictated using [employer] dictation software. Please excuse any dictation errors. FINDINGS: VASCULATURE: Pulmonary arteries: No filling defects in the pulmonary arteries to suggest pulmonary emboli. Aorta: No aortic aneurysm. No aortic dissection. Celiac trunk and mesenteric arteries: No occlusion or significant stenosis. Renal arteries: No occlusion or significant stenosis. CHELungs: Diffuse ground-glass opacities and mosaic attenuation with patchy areas of consolidation. Pleural spaces: Small bilateral pleural fluid collections. No pneumothorax. Heart: Unremarkable. No cardiomegaly. No pericardial effusion. ABDOMEN AND PELVIS: Liver: No mass. Gallbladder and biliary ducts: There has been a cholecystectomy.There is a mild, expected degree of common bile duct and intrahepatic ductal dilation. Pancreas: Unremarkable. No mass. No ductal dilation. Spleen: Wedge-shaped hypodensity with adjacent scarring in the subdiaphragmatic spleen consistent with splenic infarct. Adrenal glands: Unremarkable. No mass. Kidneys: Unremarkable kidneys. No solid mass. No hydronephrosis. Stomach and bowel: There is mild diverticulosis of the distal colon without acute diverticulitis. Postoperative changes at the gastroesophageal junction. Air-fluid levels throughout the small bowel and colon without dilatation consistent with a diarrheal illness. Intraperitoneal space: Unremarkable. No free air. No significant fluid collection. Lymph nodes: Unremarkable. No enlarged lymph nodes. Bones/joints: Unremarkable. No acute fracture. Soft tissues: Unremarkable. Other findings: No occlusion or significant stenosis of the included iliac arteries. IMPRESSION: 1. No evidence of pulmonary embolus. 2. Diffuse ground-glass opacities and mosaic attenuation with patchy areas of consolidation. Differential considerations include viral pneumonitis, pneumonia, aspiration. Pulmonary hemorrhage may present a similar picture. 3. Small bilateral pleural fluid collections. 4. Wedge-shaped hypodensity with adjacent scarring in the subdiaphragmatic spleen consistent with splenic infarct. Acute splenic infarcts are present in the comparison examination, that may account for the areas of scarring. The wedge-shaped hypodensity present on this examination, represents an infarct of unknown acuity. 5. Fluid throughout the small bowel and colon consistent with a diarrheal illness. Consider enteritis. 6. Findings were discussed with CATRACHITA LOPEZ at 06/11/2024 7:40 AM EST. Thank you for allowing us to participate in the care of your patient Quality:SDOH Health Related Social Needs: No Data to Display Discharge Plan Disposition Patient Disposition: Admit to [facility] Condition: Improving Discharge Details Chief Complaint: Epigastric Pain/Over45 Clinical Impression: Cough with hemoptysis, Ground glass opacity present on imaging of lung, Aspiration pneumonitis Primary Care Provider: Irina Lovell ED Provider: Catrachito Calix Home Meds and New Rx's Prescriptions: No Action apixaban 5 mg tablet 5 mg .ROUTE BID Qty: 180 3RF Rx Instructions: 5 mg twice a day; prednisone 1 mg tablet 2 mg PO .AM Patient Comments: 1 mg PO at HS famotidine 40 mg tablet 40 mg PO DAILY metoprolol succinate 100 mg tablet extended release 24 hr 100 mg PO BID Qty: 180 3RF hydrocortisone 5 MG tablet 5 mg PO DAILY amiodarone 400 mg tablet 400 mg PO DAILY Patient Comments: TAKE 1 TABLET BY MOUTH DAILY zolpidem 5 mg tablet 5 mg PO QHS Patient Comments: TAKE 1 TO 2 TABLETS BY MOUTH AT NIGHT NEEDED FOR SLEEP STUDY Norditropin FlexPro 10 mg/1.5 mL (6.7 mg/mL) pen injector 0.2 mg SUBCUT .COMPLEX Rx Instructions: 0.2 mg subcutaneously 3xs/week; thyroid (pork) [[employer] Thyroid] 60 mg tablet 120 mg PO DAILY thyroid (pork) [[employer] Thyroid] 30 mg tablet 45 mg PO DAILY allopurinol 100 mg tablet 100 mg PO BID Patient Comments: TAKE ONE TABLET BY MOUTH EVERY DAY IN THE MORNING FOR GOUT
[2024-06-11] MEDS: AMPICILLIN/SULBACTAM 3 GM in Normal Saline 100 ML IVPB ×3 (08:12→20:58)
--- NOTE | 2024-06-11 11:52 | W.PC.ACHO ---
Registration Status: Primary Language: Preferred Language: ED Information & Data Chief Complaint Epigastric Pain/Over45 06/11/24 05:24 Chief Complaint Epigastric Pain/Over45 06/11/24 04:59 Other Complaint RespSymp 06/11/24 04:59 Triage Note Pt had 3rd cardioversion 06/11/24 04:59 this past Saturday at [facility]. Yesterday started coughing up blood, w/ epigastric pain w/ nausea, and abd distention. Medical / Surgical History (Last Reviewed 06/11/24 @ 05:17 by Josh Bennett MD) Secondary adrenal insufficiency Splenic infarction Atrial fibrillation History of cerebral meningioma Class 3 obesity Hypothyroidism Hx of hiatal hernia (Last Reviewed 06/11/24 @ 05:17 by Josh Bennett MD) S/P selective transsphenoidal pituitary adenomectomy pilar cyst (10/11/17) Oophrectomy, Both Xi Fundoplication Excision, Scalp Mass Colonoscopy - MAC (12/03/16) Cholecystectomy Most Recent Vital Signs Temperature 37.9 C H 06/11/24 04:59 Temperature Source Temporal Artery Scan 06/11/24 04:59 Pulse 54 L 06/11/24 08:20 Pulse 54 L 06/11/24 08:20 Respiratory Rate 18 06/11/24 08:20 Blood Pressure 120/53 L 06/11/24 08:17 Blood Pressure Mean 77 06/11/24 08:17 Blood Pressure Position Sitting 06/11/24 04:59 Pulse Oximetry 95 06/11/24 08:20 Respiratory End-tidal CO2 1 06/11/24 07:31 Oxygen Delivery Method Nasal Cannula 06/11/24 06:22 Oxygen Flow Rate 2 06/11/24 06:22 Pain Level 7 06/11/24 07:00 Allergies phenytoin sodium (From Dilantin) Allergy (Severe, Verified 02/27/24 10:49) Hives phenytoin sodium extended (From Dilantin) Allergy (Severe, Verified 02/27/24 10:49) Hives multiple chemical sensitivites Adverse Reaction (Intermediate, Uncoded 02/27/24 10:49) upper Resp. issues FISHER, congestion Precautions Isolation Standard precaution 06/11/24 05:24 IV IV Catheter Type [Right Saline Lock Antecubital] IV Catheter Gauge [Right 18 Antecubital] Diet Orders Category Date Time Status Heart Healthy Eating [DIET] Nutrition 06/11/24 Lunch Active Diagnostics 06/11/24 06/11/24 Range/Units 06:24 05:18 WBC 8.12 (4.4-10.8) 10^3/uL RBC 5.12 (3.93-5.22) 10^6/uL Hgb 15.0 (11.2-15.7) g/dL Hct 46.4 H (36.0-46.0) % MCV 91 (80-95) fL MCH 29.3 (27.0-33.0) pg MCHC 32.3 (32.0-36.0) % RDW 13.8 (11.7-14.6) % Plt Count 205 (130-400) 10^3/uL MPV 10.0 (8.0-11.0) fL Immature Gran % 0.2 % Neutrophils % 83.3 % Lymphocytes % 6.0 % Monocytes % 9.4 % Eosinophils % 0.6 % Basophils % 0.5 % Nucleated RBC % 0.0 (0.0-0.3) % Absolute Neutrophils 6.76 H (1.2-6.7) 10^3/uL Absolute Lymphocytes 0.49 L (1.2-3.4) 10^3/uL Absolute Monocytes 0.76 (0.1-0.8) 10^3/uL Absolute Eosinophils 0.05 (0.0-0.7) 10^3/uL Absolute Basophils 0.04 (0.0-0.2) 10^3/uL Sodium 144 (136-145) mmol/L Potassium 4.0 (3.5-5.1) mmol/L Chloride 103 (98-107) mmol/L Carbon Dioxide 31.7 (21.0-32.0) mmol/L Anion Gap 9.3 (3-11) mmol/L BUN 15 (7-18) mg/dL Creatinine 1.3 H (0.55-1.02) mg/dL Est GFR (CKD-EPI 2020) 46.21 (mL/min/1.73m2) Glucose 126 H (74-106) mg/dL Calcium 9.1 (8.5-10.1) mg/dL Total Bilirubin 1.16 H (0.2-1.0) mg/dL AST 16 (15-37) U/L ALT 32 (14-59) U/L Alkaline Phosphatase 62 (46-116) U/L Troponin I 24 27 (<or=51) ng/L Total Protein 6.6 (6.4-8.2) g/dL Albumin 3.2 L (3.4-5.0) g/dL COVID-19 Source Nasopharynx SARS-CoV-2 (PCR) Negative (Negative) Influenza Type A (PCR) Negative (Negative) Influenza Type B (PCR) Negative (Negative) RSV (PCR) Negative (Negative) 06/11/24 11:05 Blood Culture - Pending Blood 06/11/24 10:58 Blood Culture - Pending Blood Intake and Output - 24 Hour Total 06/11/24 04:57 thru 06/11/24 04:59 Weight 131.542 kg Falls Risk Assessment History of Falls No History 06/11/24 05:24 Contributing Factors No Factors 06/11/24 05:24 Ambulatory Aids Independent 06/11/24 05:24 Tubes/Lines None 06/11/24 05:24 Gait Evaluation No gait disturbance 06/11/24 05:24 Cognition No cognitive impairment 06/11/24 05:24 Fall Total Score 0 06/11/24 05:24 Level of Risk Standard/Low Risk 06/11/24 05:24 Problems (Last Reviewed 06/11/24 @ 05:17 by Josh Bennett MD) Ground glass opacity present on imaging of lung (Acute) Cough with hemoptysis (Acute) v v v v v v v v v Sending and/or Receiving Nurses: Please use comment section below to note any information pertinent to the patient hand-off not included above. Information / Comments: Report received from: Radha given to Elba MARS at 1146
--- NOTE | 2024-06-11 12:09 | HPE_ITS ---
Date of service: 06/11/24 Time of Service: 12:09 Assessment and Plan Assessment and plan (1) Aspiration pneumonitis: Status: Acute Assessment and plan: - likely due to previous cardioversion (of note, patient says MATEO had not been performed at that time since it had been done previously) - admit to [facility] - started on Unasyn in ER, will continue this empirically for now - monitor hemoptysis. as noted, will hold Eliquis for now - (2) Atrial fibrillation: Assessment and plan: - at time of my eval, was SB in 40-50s, patient felt well with no symptoms - hold Eliquis as noted above - continue metoprolol as ordered for now, can consider decrease if patient remains bradycardic - continue amiodarone 400mg daily (3) Hypothyroidism: Assessment and plan: - on armor thyroid, can continue as able (4) Secondary adrenal insufficiency: Assessment and plan: - continue outpatient dosing of hydrocortisone and prednisone - will give 1 time dose of hydrocortisone 100mg IV for stress dosing. can consider repeat pending patient's condition History of Present Illness History of Present Illness Chief Complaint: hemoptysis Narrative: This is a 63 yo female with pmhx: AF, multiple cardioversions, previous Cushings but now with adrenal insuff, hypothyroidism that presents today with hemoptysis. Seen in ER with , pleasant and good historians. Patient had required previous cardioversions for AF. She had this done the last time on Thursday 06/08 at [facility] without any problems. Remained on Eliquis and did well the next day. However, starting yesterday, she started having some chills and fatigue which she felt may be due to her adrenal insufficiency. She took extra prednisone for this. Earlier today, she started having worsening cough with some blood/clots and presented to the ER for eval. W/U included CT which was c/w possible asspiration pneumonitis. ER physician has already d/w cardiology at that institution, ok with treating patient here and d/c of Eliquis while acutely ill. Review of Systems Constitutional Constitutional: Reports body ache(s), Reports chills, Denies excessive sweating, Reports fatigue, Reports lethargy and Reports poor appetite ENT Ears, Nose, Mouth, and Throat: Denies dysphagia Cardiovascular Cardiovascular: Denies chest pain, Denies edema, Denies irregular heart rhythm, Denies leg edema, Denies lightheadedness, Denies palpitations and Denies dyspnea Respiratory Respiratory: Reports hemoptysis, Denies pain on inspiration, Denies dyspnea and Denies wheezing Gastrointestinal Gastrointestinal: Denies abdominal pain, Denies melena, Denies coffee ground emesis, Denies constipation, Denies dysphagia, Denies dyspepsia, Denies heartburn, Denies fecal incontinence, Denies diarrhea and Denies nausea Musculoskeletal Musculoskeletal: Reports system reviewed and no additional complaints, except as documented Neurologic Neurologic: Reports system reviewed and no additional complaints, except as documented Endocrine Endocrine: Reports cold intolerance, Denies excessive sweating, Reports fatigue and Denies palpitations Allergic/Immunologic Allergic/Immunologic: Denies wheezing PFSH All Active Problems (Updated 06/11/24 @ 09:58 by Catrachito Calix DO) Aspiration pneumonitis (Acute) Ground glass opacity present on imaging of lung (Acute) Cough with hemoptysis (Acute) Medical History Secondary adrenal insufficiency Splenic infarction Atrial fibrillation History of cerebral meningioma Class 3 obesity Hypothyroidism Hx of hiatal hernia Surgical History S/P selective transsphenoidal pituitary adenomectomy pilar cyst (10/11/17) Oophrectomy, Both Xi Fundoplication Excision, Scalp Mass 06/10/17 Colonoscopy - MAC (12/03/16) Cholecystectomy Family History Father Heart disease Mother Stroke Other Hyperlipidemia Social History Smoking/Tobacco Use Status: Never Smoking risk assessment performed?: Yes Alcohol Intake: former Drug use: Never Substance use type: does not use Housing: house Do you feel safe at home: Yes Do you feel safe in your relationship?: Yes Additional Social history: Lives with Fabio in [place]. Practices Emilia. Cares for Grandchild Meds Allergies and Home Medications Allergies Allergy/AdvReac Type Severity Reaction Status Date / Time phenytoin sodium (From Allergy Severe Hives Verified 02/27/24 10:49 Dilantin) phenytoin sodium extended Allergy Severe Hives Verified 02/27/24 10:49 (From Dilantin) multiple chemical AdvReac Intermediate upper Uncoded 02/27/24 10:49 sensitivites Resp. issues FISHER, congestion Home Medications ?Medication ?Instructions ?Recorded ?Confirmed ?Type hydrocortisone 5 mg tablet 5 mg PO DAILY 06/06/17 06/11/24 History allopurinol 100 mg tablet 100 mg PO BID 01/09/24 06/11/24 History thyroid (pork) 30 mg tablet (RAILWAY YARD ASSISTANT 45 mg PO DAILY 01/09/24 06/11/24 History Thyroid) thyroid (pork) 60 mg tablet (RAILWAY YARD ASSISTANT 120 mg PO DAILY 01/09/24 06/11/24 History Thyroid) famotidine 40 mg tablet 40 mg PO DAILY 01/20/24 06/11/24 History metoprolol succinate 100 mg 100 mg PO BID #180 tabs 01/20/24 06/11/24 Rx tablet,extended release 24 hr prednisone 1 mg tablet 2 mg PO .AM 01/20/24 06/11/24 History apixaban 5 mg tablet 5 mg .Route BID #180 tabs 02/10/24 06/11/24 Rx amiodarone 400 mg tablet 400 mg PO DAILY 06/11/24 06/11/24 History somatropin 10 mg/1.5 mL (6.7 0.2 mg subcut .COMPLEX 06/11/24 06/11/24 History mg/mL) subcutaneous pen injector (Norditropin FlexPro) zolpidem 5 mg tablet 5 mg PO QHS 06/11/24 06/11/24 History Exam Const General: cooperative, comfortable and no acute distress Nutritional Appearance: overweight Orientation: alert, awake and oriented x3 Chest Chest: normal inspection of the chest Resp Other: some rhonchi/crackles heard best at R base. no wheeze. somewhat limited by cough Cardio Rate: bradycardic Rhythm: regular rhythm Heart Sounds: S1 normal and S2 normal GI Inspection: normal to inspection Palpation: soft and nontender Percussion: normal to percussion Auscultation: normal bowel sounds Skin General skin exam: no rashes or lesions noted Extrem General: no pedal edema Results Labs 06/11/24 05:18 06/11/24 05:18 Labs: Laboratory Results - last 24 hr 06/11/24 06/11/24 05:18 06:24 WBC 8.12 RBC 5.12 Hgb 15.0 Hct 46.4 H MCV 91 MCH 29.3 MCHC 32.3 RDW 13.8 Plt Count 205 MPV 10.0 Immature Gran % 0.2 Neutrophils % 83.3 Lymphocytes % 6.0 Monocytes % 9.4 Eosinophils % 0.6 Basophils % 0.5 Nucleated RBC % 0.0 Absolute Neutrophils 6.76 H Absolute Lymphocytes 0.49 L Absolute Monocytes 0.76 Absolute Eosinophils 0.05 Absolute Basophils 0.04 Sodium 144 Potassium 4.0 Chloride 103 Carbon Dioxide 31.7 Anion Gap 9.3 BUN 15 Creatinine 1.3 H Est GFR (CKD-EPI 2020) 46.21 Glucose 126 H Calcium 9.1 Total Bilirubin 1.16 H AST 16 ALT 32 Alkaline Phosphatase 62 Troponin I 27 24 Total Protein 6.6 Albumin 3.2 L COVID-19 Source Nasopharynx SARS-CoV-2 (PCR) Negative Influenza Type A (PCR) Negative Influenza Type B (PCR) Negative RSV (PCR) Negative Last Vital Signs Temp 37.9 C H 06/11/24 04:59 Pulse 49 L 06/11/24 11:40 Resp 23 06/11/24 11:40 BP 188/136 H 06/11/24 11:32 Pulse Ox 94 06/11/24 11:40 Time Spent Time spent with Patient: <40 minutes Time was spent: preparing to see the patient(eg.review tests), ordering medications,tests, procedures, indepentently interpreting results, counseling the patient and care coordination
[2024-06-11] MEDS: Pantoprazole 40 MG VIAL IVP (12:34)
[2024-06-11] MEDS: Hydrocortisone SOD SUC. 100 MG VIAL IVP (12:35)
--- NOTE | 2024-06-11 16:16 | CHAPLAIN ---
Jacinda and I know each other from outside the hospital. 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 She told me about three conversion attempts for her AFib. The last one, on Saturday worked, but it appears that she got aspiration pneumonia in the process, she said. She feels better have her AFib taken care of. Until now she has been very tired with th AFib. She's planned a trip to [place] with her in July. I will continue to visit.
[2024-06-11] MEDS: Docusate Sodium 100 MG CAP PO (20:58)
[2024-06-11] MEDS: predniSONE 1 MG TAB PO (20:58)
[2024-06-11] MEDS: Allopurinol 100 MG TAB PO (20:58)
[2024-06-11] MEDS: Hydrocortisone 10 MG TAB PO (20:59)
[2024-06-11] MEDS: Albuterol/Ipratropium 3 ML UPD VIAL UPD (21:20)
[2024-06-11] MEDS: Normal Saline Flush 10 ML SYR IVP (21:38)
[2024-06-12] VITALS (20 sets, daily range): BP systolic 111–152; BP diastolic 55–104; PULSE 51–171; RESP 3–22; TEMP 36.2–37.2; O2SAT 89–97
[2024-06-12] MEDS: AMPICILLIN/SULBACTAM 3 GM in Normal Saline 100 ML IVPB ×4 (02:18→21:35)
[2024-06-12] MEDS: Normal Saline Flush 10 ML SYR IVP ×4 (02:19→21:35)
[2024-06-12] MEDS: Albuterol/Ipratropium 3 ML UPD VIAL UPD ×3 (03:56→21:44)
[2024-06-12] MEDS: Thyroid 60 MG TAB 120 MG PO (05:55)
[2024-06-12 07:40] LABS: Abs Immature Grans 0.02 10^3/uL (0.0-0.06); Absolute Basophil Count 0.03 10^3/uL (0.0-0.2); Absolute Eosinophil Count 0.04 10^3/uL (0.0-0.7); Absolute Lymphocyte Count 0.52 10^3/uL (1.2-3.4); Absolute Monocyte Count 0.68 10^3/uL (0.1-0.8); Absolute Neutrophil Count 5.33 10^3/uL (1.2-6.7); Basophils % 0.5 %; Eosinophils % 0.6 %; HCT 43.7 % (36.0-46.0); HGB 14.1 g/dL (11.2-15.7); Immature Grans % 0.3 %; Lymphocytes % 7.9 %; MCH 29.1 pg (27.0-33.0); MCHC 32.3 % (32.0-36.0); MCV 90 fL (80-95); MPV 10.6 fL (8.0-11.0); Monocytes % 10.3 %; Neutrophils % 80.4 %; Platelet Count 207 10^3/uL (130-400); RBC 4.85 10^6/uL (3.93-5.22); RDW 14.1 % (11.7-14.6); RDW-SD 46.7 fL; WBC 6.62 10^3/uL (4.4-10.8)
[2024-06-12] MEDS: Hydrocortisone 10 MG TAB PO ×2 (07:46→19:23)
[2024-06-12] MEDS: Docusate Sodium 100 MG CAP PO ×2 (07:47→21:34)
[2024-06-12] MEDS: Pantoprazole 40 MG VIAL IVP (07:47)
[2024-06-12] MEDS: Allopurinol 100 MG TAB PO ×2 (07:47→21:34)
[2024-06-12] MEDS: Amiodarone 200 MG TAB 400 MG PO (07:47)
[2024-06-12] MEDS: Famotidine 20 MG TAB 40 MG PO (07:47)
[2024-06-12 07:51] LABS: BUN 12 mg/dL (7-18); CREATININE 1.2 mg/dL (0.55-1.02); Calcium 9.1 mg/dL (8.5-10.1); Chloride 105 mmol/L (98-107); Estimated GFR 50.86 (mL/min/1.73m2); Glucose 102 mg/dL (74-106); Potassium 3.6 mmol/L (3.5-5.1); Sodium 145 mmol/L (136-145)
[2024-06-12] MEDS: predniSONE 1 MG TAB PO ×2 (07:51→21:34)
--- NOTE | 2024-06-12 09:13 | INITIAL_ITS ---
Date of service: 06/12/24 Time of Service: 09:13 Care Management Initial Assmt Initial Assessment Reason for Hospitalization: aspiration pneumonia Functional Status/Living Situation Patient Presentation: Jacinda was sitting up in a chair when CM met with her. She was pleasant in manner and agreeable to conversation. Jacinda lives in a single family home in [place] with her Fabio.They have 2 children; one lives in [place] and the other is in [place]. She also has 2 grandchildren. Jacinda is independent at baseline. She does not receive any community services and does require any assistive devices for ambulation. 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 Jacinda was admitted with aspiration pneumonia. She had a cardioversion on Saturday and believes she may have aspirated at that time. Her chest Xray showed Bilateral upper and lower lobe infiltrates.and small bilateral pleural effusions. Jacinda is requiring 1-1.5 L/min of nasal O2 to maintain her oxygen saturation above 90%, however she remains afebrile and her WBC is WNL. Town of Residence: [place] Resides with: Spouse (hisband Fabio) Significant Other/Family: Local (one child lives locally and the other is in [place]) Natural Supports: family Employment Status: Employed Instrumental Activities of Daily Living (ADLs): Independent Medications Medication Management: No Issues/Barriers identified Advance Directives Advance Directives: Do you have an Advance Directive: Y 01/14/24 20:26 AD On File at [facility]: Y 01/14/24 20:26 Date Asked AD Date Reviewed 06/11/24 06/11/24 06:00 COLST On File at [facility] COLST Date Scanned Code Status Resuscitation Status Full Code Insurance Coverage/Financial Issues Insurance: / Care Team Visit Care Team Role Provider Type Irina Lovell Primary Care Provider NON-[facility] STAFF PHYSICIAN Gwen Stovall, [employer] Other Providers SPEECH LANGUAGE PATHOLOGIST Trish Stout, [employer] Other Providers SPEECH LANGUAGE PATHOLOGIST Courtney Mendez Other Providers SPEECH LANGUAGE PATHOLOGIST Michelle Borrero, [employer] Other Providers SPEECH LANGUAGE PATHOLOGIST Christina Phillips, [employer] Other Providers SPEECH LANGUAGE PATHOLOGIST Catrachito Calix, Emergency Provider [facility] STAFF PHYSICIAN Georgi Cha, Admit Provider [facility] STAFF PHYSICIAN Attending Provider Discharge Potential Discharge Needs: PCP F/U Appt Anticipated Barriers to Discharge: None Identified Patient/Family Education Needs: Review discharge instructions, discuss Ask Me Three Transportation: Private vehicle Plan: Anticipate Jacinda will be discharged home with no new services when medically cleared. She will follow up with her PCP and plan of care and transport with family. CM will follow and continue to assess for discharge needs. Social Determinants of Health Screening Social Determinants of Health last assessed: 06/12/24 Will the Patient Participate in the Screening?: Yes Do you worry about having a steady place to live?: no Problems where you live: no known problems In the past 12 months, have you had to go without electric, gas, oil or water in your home?: no Have you or anyone in your house had to go without enough food to eat?: no Has lack of transportation kept you from medical appointments or from doing things needed for daily living?: no Has anyone in your life made you feel unsafe or unsupported?: no How hard is it for you to pay for the very basics like food, housing, medical care, and heating? Would you say it is:: Not hard at all Do you want help finding or keeping work or a job?: I do not need or want help If for any reason you need help with day-to-day activities such as bathing, preparing meals, shopping, managing finances, etc., do you get the help you need?: I get all the help I need How often do you feel lonely or isolated from those around you?: Never Do you speak a language other than Maldivian at home?: Yes Does the patient want assistance with any of the above?: No Health Related Social Needs Health related social needs: education (Z55.6) PFSH All Active Problems (Updated 06/11/24 @ 09:58 by Catrachito Calix DO) Aspiration pneumonitis (Acute) Ground glass opacity present on imaging of lung (Acute) Cough with hemoptysis (Acute) Medical History Secondary adrenal insufficiency Splenic infarction Atrial fibrillation History of cerebral meningioma Class 3 obesity Hypothyroidism Hx of hiatal hernia Surgical History S/P selective transsphenoidal pituitary adenomectomy pilar cyst (10/11/17) Oophrectomy, Both Xi Fundoplication Excision, Scalp Mass 06/10/17 Colonoscopy - MAC (12/03/16) Cholecystectomy Family History Father Heart disease Mother Stroke Other Hyperlipidemia Social History Smoking/Tobacco Use Status: Never Smoking risk assessment performed?: Yes Alcohol Intake: former Drug use: Never Substance use type: does not use Housing: house Do you feel safe at home: Yes Do you feel safe in your relationship?: Yes Additional Social history: Lives with Fabio in [place]. Practices Reiki. Cares for Grandchild
--- NOTE | 2024-06-12 14:46 | CHAPLAIN ---
Jacinda was visiting was visiting with her when I visited this morning. She said she is feeling better but will be here again over night to monitor her oxygen levels. Jacinda was pleasant and usual and easily engages in conversation. She said last night there was noise from staff that kept her awake at times, but she was able to get some sleep.
--- NOTE | 2024-06-12 15:08 | W.PM.PROGNOT ---
Date of Service Date of service: 06/12/24 Time of Service: 15:09 Assessment and Plan Assessment and plan (1) Aspiration pneumonitis: Status: Acute Assessment and plan: - continues to improve. lekuocytosis has normalized - continue Unasyn as ordered another 24h, then consider changing to PO - monitor hemoptysis (2) Atrial fibrillation: Assessment and plan: - continue amiodarone and metoprolol as ordered - off eliquis due to hemoptysis - remains in SB/NSR (3) Hypothyroidism: Assessment and plan: - on armor thyroid, can continue as able (4) Secondary adrenal insufficiency: Assessment and plan: - continue outpatient dosing of hydrocortisone and prednisone Subjective Subjective Interval history since last seen: Seen and examined. Tells me she feels better, has ongoing cough as before but feels the hemoptysis has improved significantly. Showed me some sputum that only had a light pink tinge. Denies any BRB or large clots. Remains on 2L NC. Vitals stable, remains in NSR/SB. Exam Const General: cooperative, comfortable and no acute distress Nutritional Appearance: obese Orientation: alert, awake and oriented x3 Chest Chest: normal inspection of the chest Resp Effort & Inspection: normal respiratory effort Auscultation: rales (mild at bases, R>L) Percussion: percussion normal Cardio Jugular venous pressure: no JVD Rate: regular rate Rhythm: regular rhythm Heart Sounds: S1 normal and S2 normal GI Inspection: normal to inspection Palpation: soft Auscultation: normal bowel sounds Skin General skin exam: no rashes or lesions noted Neuro Cranial Nerves: CN's II-XI intact bilaterally Objective Last Vital Signs Temp 37.2 C 06/12/24 11:35 Pulse 57 L 06/12/24 14:58 Resp 18 06/12/24 11:35 BP 115/61 06/12/24 11:35 Pulse Ox 96 06/12/24 14:58 Laboratory Results - last 24 hr 06/12/24 07:13 WBC 6.62 RBC 4.85 Hgb 14.1 Hct 43.7 MCV 90 MCH 29.1 MCHC 32.3 RDW 14.1 Plt Count 207 MPV 10.6 Immature Gran % 0.3 Neutrophils % 80.4 Lymphocytes % 7.9 Monocytes % 10.3 Eosinophils % 0.6 Basophils % 0.5 Nucleated RBC % 0.0 Absolute Neutrophils 5.33 Absolute Lymphocytes 0.52 L Absolute Monocytes 0.68 Absolute Eosinophils 0.04 Absolute Basophils 0.03 Sodium 145 Potassium 3.6 Chloride 105 Carbon Dioxide 31.0 Anion Gap 9.0 BUN 12 Creatinine 1.2 H Est GFR (CKD-EPI 2020) 50.86 Glucose 102 Calcium 9.1 Time Spent with Patient Time Spent with Patient: <25 minutes Time was spent: preparing to see the patient(eg.review tests), ordering medications,tests, procedures, indepentently interpreting results and counseling the patient
[2024-06-12] MEDS: Metoprolol CR 100 MG TABCR PO (21:34)
--- NOTE | 2024-06-12 22:30 | RT.EKG_ITS ---
APPROVED REPORT Exam: Resting ECG Reason for Exam: Heart rate changes Patient Location: I HR:160 bpm ECG Measurements Heart Rate 160 AXIS AK [id number] P [id number] QRSd 91 QRS 77 QT 278 T 260 QTc 454 Conclusion Atrial fibrillation with rapid V-rate...A-rate 344 Repolarization abnormality, prob rate related...ST dep, T neg, tachycardia
[2024-06-12] MEDS: Hydrocortisone SOD SUC. 100 MG VIAL IVP (23:36)
[2024-06-12] MEDS: Metoprolol 5 MG/5 ML VIAL IVP (23:37)
[2024-06-13] VITALS (59 sets, daily range): BP systolic 95–157; BP diastolic 62–101; PULSE 57–147; RESP 9–38; TEMP 36.8–37.4; O2SAT 86–96
[2024-06-13] MEDS: dilTIAZem 125 MG in Normal Saline 100 ML IV ×2 (00:45→21:39)
--- NOTE | 2024-06-13 01:34 | W.PM.PROGNOT ---
Date of Service Date of service: 06/13/24 Time of Service: 01:34 Assessment and Plan Assessment and plan (1) Atrial fibrillation: Status: Chronic Assessment and plan: Atrial fibrillation with rapid ventricular response. She is having breakthrough A-fib after having been cardioverted 5 days ago. Patient is very disappointed that she continues to have problems with A-fib. They have talked to her about ablation but she is not a good candidate because of her steroids. They had started amiodarone and stopped her Cardizem CD. She is now on a Cardizem drip 5 mg/h. Switch her metoprolol to succinate to metoprolol tartrate 25 mg p.o. every 6 hours. Continue amiodarone 400 mg daily. Monitor in the ICU. Subjective Subjective Interval history since last seen: Called to see the patient because of atrial fibrillation with rapid ventricular response. Patient spontaneously went into a rapid atrial fibrillation around 10:30 PM. An EKG showed atrial fibrillation at a rate of 166 bpm. Patient was not having any chest pain but was very anxious and upset about this as she had just had a cardioversion on 06/08/2024. Her Toprol-XL was held this morning because of a low pulse rate but she did receive a dose this evening. Metoprolol 5 mg IV push was given at the bedside. This did not have much of an effect on her overall rate. He maintained a good blood pressure throughout this. Despite this we transferred her to the ICU for closer monitoring and started on her on a Cardizem drip. Currently 5 mg/h is getting her rate down into the 80s. I did speak with DH wedding decorator. She agreed with Cardizem drip or consider digoxin load. Continue amiodarone. Switch to metoprolol to tartrate in the short-term as we are titrating her rate control medications. Exam Narrative Exam Narrative: Patient is afebrile temp 37.4. Her blood pressure 129/72 heart rate 166 respiratory rate 16 she satting 96% on 1 L. She is anxious but otherwise in no apparent distress. She is not having any chest pain. She is not having any shortness of breath or air hunger. No cough. Objective Last Vital Signs Temp 37.4 C 06/13/24 00:31 Pulse 138 H 06/12/24 23:53 Resp 16 06/12/24 23:53 BP 129/72 06/12/24 23:53 Pulse Ox 96 06/12/24 23:21 Laboratory Results - last 24 hr 06/12/24 07:13 WBC 6.62 RBC 4.85 Hgb 14.1 Hct 43.7 MCV 90 MCH 29.1 MCHC 32.3 RDW 14.1 Plt Count 207 MPV 10.6 Immature Gran % 0.3 Neutrophils % 80.4 Lymphocytes % 7.9 Monocytes % 10.3 Eosinophils % 0.6 Basophils % 0.5 Nucleated RBC % 0.0 Absolute Neutrophils 5.33 Absolute Lymphocytes 0.52 L Absolute Monocytes 0.68 Absolute Eosinophils 0.04 Absolute Basophils 0.03 Sodium 145 Potassium 3.6 Chloride 105 Carbon Dioxide 31.0 Anion Gap 9.0 BUN 12 Creatinine 1.2 H Est GFR (CKD-EPI 2020) 50.86 Glucose 102 Calcium 9.1 Time Spent with Patient Time Spent with Patient: 25-34 minutes Time was spent: preparing to see the patient(eg.review tests), obtaining and/or reviewing separately otained hiistory, ordering medications,tests, procedures, referring, communicating with other health career center advisor, indepentently interpreting results and counseling the patient
[2024-06-13] MEDS: Metoprolol 25 MG TAB PO ×3 (01:42→13:32)
--- NOTE | 2024-06-13 02:29 | NUR.NOTE ---
This data analyst report writer was alerted to rapid change in pts heart rate on the telemetry screen with HR above 150. Pt has previously been bradycardic. immediate assessment of pt showed palpitations, mild SOB. immediately assessed vitals. see vitals flow sheet. provider notified immediately of events. staff encouraged valsalva maneuvers to try to lower HR. they were ineffective shelter. this data analyst report writer stayed with patient to monitor symptoms and continually monitor vitals. STAT EKG obtained that showed Afib with RVR. provider notified. orders for IVP hydrocortisone 100mg and metoprolol 5mg IVP. metoprolol was minimally effective. pt symptoms of palpitations and SOB did not resolve. at that time pt was admitted to ICU for further monitoring and diltiazem drip.
--- NOTE | 2024-06-13 02:51 | W.PC.ACHO ---
Registration Status: Primary Language: Preferred Language: ED Information & Data Chief Complaint Epigastric Pain/Over45 06/11/24 05:24 Chief Complaint Epigastric Pain/Over45 06/11/24 04:59 Other Complaint RespSymp 06/11/24 04:59 Triage Note Pt had 3rd cardioversion 06/11/24 04:59 this past Saturday at [facility]. Yesterday started coughing up blood, w/ epigastric pain w/ nausea, and abd distention. Medical / Surgical History (Last Reviewed 06/11/24 @ 05:17 by Josh Bennett MD) Secondary adrenal insufficiency Splenic infarction History of cerebral meningioma Class 3 obesity Hypothyroidism Hx of hiatal hernia (Last Reviewed 06/11/24 @ 05:17 by Josh Bennett MD) S/P selective transsphenoidal pituitary adenomectomy pilar cyst (10/11/17) Oophrectomy, Both Xi Fundoplication Excision, Scalp Mass Colonoscopy - MAC (12/03/16) Cholecystectomy Most Recent Vital Signs Temperature 37.4 C 06/13/24 00:31 Temperature Source Temporal Artery Scan 06/13/24 00:31 Pulse 124 H 06/13/24 01:47 Pulse Rhythm Regular 06/11/24 12:05 Pulse 125 H 06/13/24 01:47 Respiratory Rate 30 H 06/13/24 01:47 Respiratory Effort Normal 06/13/24 00:31 Respiratory Depth Normal 06/11/24 12:05 Respiratory Pattern Tachypnea 06/13/24 00:31 Blood Pressure 152/97 H 06/13/24 01:47 Blood Pressure Mean 111 06/13/24 01:47 Blood Pressure Position Sitting 06/11/24 04:59 Pulse Oximetry 92 06/13/24 01:47 Respiratory End-tidal CO2 1 06/11/24 07:31 Oxygen Delivery Method Nasal Cannula 06/13/24 00:45 Oxygen Flow Rate 2 06/13/24 00:45 Pain Level 0 06/13/24 00:31 Comment duoneb updraft to be given 06/12/24 03:58 Allergies phenytoin sodium (From Dilantin) Allergy (Severe, Verified 02/27/24 10:49) Hives phenytoin sodium extended (From Dilantin) Allergy (Severe, Verified 02/27/24 10:49) Hives multiple chemical sensitivites Adverse Reaction (Intermediate, Uncoded 02/27/24 10:49) upper Resp. issues FISHER, congestion Precautions Isolation Standard precaution 06/11/24 05:24 Active Medications Generic Name Dose Route Start Last Admin Trade Name Frelea PRN Reason Stop Dose Admin Albuterol/Ipratropium 3 ml 06/11/24 11:42 06/12/24 21:44 Albuterol/Ipratropium 3 Ml Upd Vial UPD 3 ml Q6H PRN PRN Administration Allopurinol 100 mg 06/11/24 20:00 06/12/24 21:34 Allopurinol 100 Mg Tab PO 100 mg BID ELAINE Administration Amiodarone HCl 400 mg 06/12/24 08:30 06/12/24 07:47 Amiodarone 200 Mg Tab PO 400 mg DAILY ELAINE Administration Docusate Sodium 100 mg 06/11/24 20:00 06/12/24 21:34 Docusate Sodium 100 Mg Cap PO 100 mg BID ELAINE Administration Famotidine 40 mg 06/12/24 08:30 06/12/24 07:47 Famotidine 20 Mg Tab PO 40 mg Q48H ELAINE Administration Hydrocortisone 20 - 30 mg 06/11/24 20:00 06/12/24 19:23 Hydrocortisone 10 Mg Tab PO 30 mg BID ELAINE Administration Ampicillin Sodium/Sulbactam 100 mls @ 200 mls/hr 06/11/24 14:00 06/12/24 22:37 Sodium 3 gm/ Sodium Chloride IVPB Infused Q6H ELAINE Infusion Diltiazem HCl 125 mg/ Sodium 125 mls @ 5 mls/hr 06/13/24 00:27 06/13/24 00:45 Chloride IV 5 mg/hr INFUSION ELAINE 5 mls/hr Administration Protocol 5 MG/HR Metoprolol Tartrate 25 mg 06/13/24 01:00 06/13/24 01:42 Metoprolol 25 Mg Tab PO 25 mg Q6H ELAINE Administration Pantoprazole Sodium 40 mg 06/11/24 11:42 06/12/24 07:47 Pantoprazole 40 Mg Vial IVP 40 mg DAILY ELAINE Administration Patient's Own 0.2 each 06/12/24 18:00 06/12/24 17:54 Medication ( SC Not Given Somatropin [ [id number]@1800 ELAINE Norditropin Flexpro] 10 Mg/1.5 Ml (6.7 M Polyethylene Glycol 17 gm 06/12/24 08:30 06/12/24 07:54 Polyethylene Glycol 3350 17 Gm Packet PO Not Given DAILY ELAINE Prednisone 1 mg 06/11/24 20:00 06/12/24 21:34 Prednisone 1 Mg Tab PO 1 mg BID ELAINE Administration Sodium Chloride 0 ml 06/12/24 08:30 06/12/24 21:35 Normal Saline Flush 10 Ml Syr IVP 10 ml BID ELAINE Administration Sodium Chloride 0 ml 06/11/24 21:17 06/12/24 21:34 Normal Saline Flush 10 Ml Syr IVP 10 ml PRN PRN Administration Thyroid 120 mg 06/12/24 06:00 06/12/24 05:55 Thyroid 60 Mg Tab PO 120 mg DAILY@0600 ELAINE Administration IV IV Catheter Type [Right Peripheral IV Antecubital] IV Catheter Gauge [Right 18 Antecubital] Diagnostics 06/13/24 06/12/24 Range/Units 05:35 07:13 WBC Pending 6.62 (4.4-10.8) 10^3/uL RBC Pending 4.85 (3.93-5.22) 10^6/uL Hgb Pending 14.1 (11.2-15.7) g/dL Hct Pending 43.7 (36.0-46.0) % MCV Pending 90 (80-95) fL MCH Pending 29.1 (27.0-33.0) pg MCHC Pending 32.3 (32.0-36.0) % RDW Pending 14.1 (11.7-14.6) % Plt Count Pending 207 (130-400) 10^3/uL MPV Pending 10.6 (8.0-11.0) fL Immature Gran % Pending 0.3 % Neutrophils % Pending 80.4 % Lymphocytes % Pending 7.9 % Monocytes % Pending 10.3 % Eosinophils % Pending 0.6 % Basophils % Pending 0.5 % Nucleated RBC % 0.0 (0.0-0.3) % Absolute Neutrophils Pending 5.33 (1.2-6.7) 10^3/uL Absolute Lymphocytes Pending 0.52 L (1.2-3.4) 10^3/uL Absolute Monocytes Pending 0.68 (0.1-0.8) 10^3/uL Absolute Eosinophils Pending 0.04 (0.0-0.7) 10^3/uL Absolute Basophils Pending 0.03 (0.0-0.2) 10^3/uL Sodium Pending 145 (136-145) mmol/L Potassium Pending 3.6 (3.5-5.1) mmol/L Chloride Pending 105 (98-107) mmol/L Carbon Dioxide Pending 31.0 (21.0-32.0) mmol/L Anion Gap Pending 9.0 (3-11) mmol/L BUN Pending 12 (7-18) mg/dL Creatinine Pending 1.2 H (0.55-1.02) mg/dL Est GFR (CKD-EPI 2020) Pending 50.86 (mL/min/1.73m2) Glucose Pending 102 (74-106) mg/dL Calcium Pending 9.1 (8.5-10.1) mg/dL Magnesium Pending 06/11/24 11:05 Blood Culture - Preliminary Blood NO GROWTH 24 HOURS 06/11/24 10:58 Blood Culture - Preliminary Blood NO GROWTH 24 HOURS Intake and Output - 24 Hour Total 06/11/24 04:57 thru 06/13/24 01:50 Intake Total 720 Balance 720 Weight 132.4 kg Intake: IV 720 Other: Urine Color Yellow Urine Appearance Clear Urine Odor None Comment Patient voided in toilet and flushed, not visualized - patient stated normal, no alarming signs, informed patient not to flush in order to allow for assessment in light of hemoptysis/present condition. Falls Risk Assessment History of Falls No History 06/13/24 00:31 Contributing Factors No Factors,Unstable, 06/13/24 00:31 Medications Ambulatory Aids Independent 06/13/24 00:31 Tubes/Lines W/no contributing factors 06/13/24 00:31 Gait Evaluation No gait disturbance 06/13/24 00:31 Cognition No cognitive impairment 06/13/24 00:31 Fall Total Score 16 06/13/24 00:31 Level of Risk Standard/Low Risk 06/13/24 00:31 Problems (Last Reviewed 06/11/24 @ 05:17 by Josh Bennett MD) Atrial fibrillation (Chronic) Aspiration pneumonitis (Acute) Ground glass opacity present on imaging of lung (Acute) Cough with hemoptysis (Acute) Notes 06/13/24 02:29 Nursing Notes by Rupal oM This proposal manager writer was alerted to rapid change in pts heart rate on the telemetry screen with HR above 150. Pt has previously been bradycardic. immediate assessment of pt showed palpitations, mild SOB. immediately assessed vitals. see vitals flow sheet. provider notified immediately of events. staff encouraged valsalva maneuvers to try to lower HR. they were ineffective residential. this proposal manager writer stayed with patient to monitor symptoms and continually monitor vitals. STAT EKG obtained that showed Afib with RVR. provider notified. orders for IVP hydrocortisone 100mg and metoprolol 5mg IVP. metoprolol was minimally effective. pt symptoms of palpitations and SOB did not resolve. at that time pt was admitted to ICU for further monitoring and diltiazem drip. Initialized on 06/13/24 02:29 - END OF NOTE v v v v v v v v v Sending and/or Receiving Nurses: Please use comment section below to note any information pertinent to the patient hand-off not included above. Information / Comments: Report received from: Rupal Mo
[2024-06-13] MEDS: AMPICILLIN/SULBACTAM 3 GM in Normal Saline 100 ML IVPB ×2 (04:15→11:01)
[2024-06-13 05:44] LABS: Abs Immature Grans 0.01 10^3/uL (0.0-0.06); Absolute Basophil Count 0.01 10^3/uL (0.0-0.2); Absolute Eosinophil Count 0.01 10^3/uL (0.0-0.7); Absolute Lymphocyte Count 0.32 10^3/uL (1.2-3.4); Absolute Monocyte Count 0.26 10^3/uL (0.1-0.8); Absolute Neutrophil Count 5.06 10^3/uL (1.2-6.7); Basophils % 0.2 %; Eosinophils % 0.2 %; HCT 43.5 % (36.0-46.0); Immature Grans % 0.2 %; Lymphocytes % 5.6 %; MCH 29.4 pg (27.0-33.0); MCHC 32.2 % (32.0-36.0); MCV 91 fL (80-95); MPV 10.6 fL (8.0-11.0); Monocytes % 4.6 %; Neutrophils % 89.2 %; Platelet Count 209 10^3/uL (130-400); RBC 4.76 10^6/uL (3.93-5.22); RDW 13.9 % (11.7-14.6); WBC 5.67 10^3/uL (4.4-10.8)
[2024-06-13] MEDS: Thyroid 60 MG TAB 120 MG PO (06:01)
[2024-06-13 06:13] LABS: Anion Gap 7.6 mmol/L (3-11); BUN 10 mg/dL (7-18); CO2 30.4 mmol/L (21.0-32.0); CREATININE 1.1 mg/dL (0.55-1.02); Calcium 8.8 mg/dL (8.5-10.1); Chloride 107 mmol/L (98-107); Estimated GFR 56.46 (mL/min/1.73m2); Glucose 138 mg/dL (74-106); Magnesium 2.1 mg/dL (1.8-2.4); Potassium 3.7 mmol/L (3.5-5.1); Sodium 145 mmol/L (136-145)
[2024-06-13] MEDS: Normal Saline Flush 10 ML SYR IVP ×2 (08:21→19:33)
[2024-06-13] MEDS: Pantoprazole 40 MG VIAL IVP (08:21)
[2024-06-13] MEDS: Hydrocortisone 10 MG TAB PO ×2 (08:23→19:31)
[2024-06-13] MEDS: predniSONE 1 MG TAB PO ×2 (08:23→19:31)
[2024-06-13] MEDS: Amiodarone 200 MG TAB 400 MG PO ×2 (08:23→19:31)
[2024-06-13] MEDS: Allopurinol 100 MG TAB PO ×2 (08:23→19:32)
[2024-06-13] MEDS: Albuterol/Ipratropium 3 ML UPD VIAL UPD (09:32)
[2024-06-13] MEDS: dilTIAZem 125 MG in Normal Saline 100 ML 10 MG IV (12:21)
--- NOTE | 2024-06-13 13:58 | PGE_ITS ---
Date of Service Date of service: 06/13/24 Time of Service: 13:58 Assessment and Plan Assessment and plan (1) Aspiration pneumonitis: Status: Acute Assessment and plan: - continues to improve. lekuocytosis has normalized - will change management analyst to Augmentin 875mg PO BID to finish course. - consider restarting Eliquis in next 24-48h if hemoptysis remains resolved (2) Atrial fibrillation: Status: Chronic Assessment and plan: - i called and d/w LAND LEVELER [place] [facility] [place] changing over metoprolol succ to 100mg BID as per outpatient dosing. - increase amiodarone to 400mg BID - plan would likely be to transition patient off cardizem gtt in next 24h. can be discharged in AF and will need to follow with them in near future to revisit possibility of ablation (3) Hypothyroidism: Assessment and plan: - on armor thyroid, can continue as able (4) Secondary adrenal insufficiency: Assessment and plan: - continue outpatient dosing of hydrocortisone and prednisone Subjective Subjective Interval history since last seen: Seen and examined. Events of yesterday evening noted, patient converted back to rapid AF. at around 10:30PM. Patient was moved to the ICU, started on cardizem gtt and IV metoprolol. At the time of my eval, patient remained in AF but rates were down to 80s. Patient was comfortable and asymptomatic outside of occasional cough. No further hemoptysis. Was no longer requiring supplemental O2. Other vitals stable. Exam Const General: cooperative, comfortable and no acute distress Nutritional Appearance: obese Orientation: alert, awake and oriented x3 Chest Chest: normal inspection of the chest Resp Effort & Inspection: normal respiratory effort Auscultation: rales (mild at bases, R>L) Percussion: percussion normal Cardio Jugular venous pressure: no JVD Rate: regular rate Rhythm: regular rhythm and abnormal rhythm Heart Sounds: S1 normal and S2 normal GI Inspection: normal to inspection Palpation: soft Auscultation: normal bowel sounds Skin General skin exam: no rashes or lesions noted Neuro Cranial Nerves: CN's II-XI intact bilaterally Objective Last Vital Signs Temp 37.4 C 06/13/24 00:31 Pulse 66 06/13/24 11:03 Resp 25 H 06/13/24 11:03 BP 116/66 06/13/24 11:03 Pulse Ox 91 L 06/13/24 11:03 Laboratory Results - last 24 hr 06/13/24 05:25 WBC 5.67 RBC 4.76 Hgb 14.0 Hct 43.5 MCV 91 MCH 29.4 MCHC 32.2 RDW 13.9 Plt Count 209 MPV 10.6 Immature Gran % 0.2 Neutrophils % 89.2 Lymphocytes % 5.6 Monocytes % 4.6 Eosinophils % 0.2 Basophils % 0.2 Nucleated RBC % 0.0 Absolute Neutrophils 5.06 Absolute Lymphocytes 0.32 L Absolute Monocytes 0.26 Absolute Eosinophils 0.01 Absolute Basophils 0.01 Sodium 145 Potassium 3.7 Chloride 107 Carbon Dioxide 30.4 Anion Gap 7.6 BUN 10 Creatinine 1.1 H Est GFR (CKD-EPI 2020) 56.46 Glucose 138 H Calcium 8.8 Magnesium 2.1 Time Spent with Patient Time Spent with Patient: 25-34 minutes Time was spent: preparing to see the patient(eg.review tests), ordering medications,tests, procedures, referring, communicating with other health inspector health care facilities, indepentently interpreting results, counseling the patient and care coordination
--- NOTE | 2024-06-13 15:45 | RT.EKG_ITS ---
APPROVED REPORT Exam: Resting ECG Reason for Exam: rhythm change to A flutter Patient Location: I HR:70 bpm ECG Measurements Heart Rate 70 AXIS MO [id number] P [id number] QRSd 107 QRS 75 QT 464 T 73 QTc 501 Conclusion Atrial fibrillation...? atrial activity Borderline T wave abnormalities...T/QRS ratio < 1/20 or flat T Prolonged QT interval...QTc >500mS
[2024-06-13] MEDS: Amoxicillin 875/Clav. 125 TAB PO (19:31)
[2024-06-13] MEDS: Metoprolol CR 100 MG TABCR PO (19:32)
[2024-06-13] MEDS: Docusate Sodium 100 MG CAP PO (19:32)
[2024-06-14] VITALS (31 sets, daily range): BP systolic 112–140; BP diastolic 64–114; PULSE 60–93; RESP 5–29; TEMP 36.7–37.1; O2SAT 86–96
[2024-06-14] MEDS: Thyroid 60 MG TAB 120 MG PO (05:37)
[2024-06-14 06:47] LABS: Abs Immature Grans 0.02 10^3/uL (0.0-0.06); Absolute Basophil Count 0.03 10^3/uL (0.0-0.2); Absolute Eosinophil Count 0.18 10^3/uL (0.0-0.7); Absolute Lymphocyte Count 0.74 10^3/uL (1.2-3.4); Absolute Monocyte Count 0.74 10^3/uL (0.1-0.8); Absolute Neutrophil Count 3.56 10^3/uL (1.2-6.7); Basophils % 0.6 %; Eosinophils % 3.4 %; HCT 44.6 % (36.0-46.0); HGB 14.4 g/dL (11.2-15.7); Immature Grans % 0.4 %; MCH 29.4 pg (27.0-33.0); MCHC 32.3 % (32.0-36.0); MCV 91 fL (80-95); MPV 10.8 fL (8.0-11.0); Neutrophils % 67.6 %; Platelet Count 196 10^3/uL (130-400); RBC 4.89 10^6/uL (3.93-5.22); RDW 13.9 % (11.7-14.6); RDW-SD 46.9 fL; WBC 5.27 10^3/uL (4.4-10.8)
--- NOTE | 2024-06-14 06:56 | W.NUTRFU ---
Date of service: 06/14/24 Time of Service: 06:56 Nutrition Note NOTE: 63yo pt being treated for Afib, aspiration pneumonitis. tolerating heart healthy diet- speech consult still pending regarding swallow eval/assess for aspiration risk. Weight stable. fair to good po intake. 06/11/24 total protein wnl, albumin low. Last A1c was 6.2% 03/27/24 - pt takes 1mg prednisone at home. Fasting glucose was 100 this morning. Nutrition Dx: class 3 obesity related to caloric imbalance and metabolic dysfunction as evidenced by BMI over 50 currently Intervention: REcommend vitamin D lab due to low D in March and no supplement on home med list and not currently ordered. Monitoring: will monitor weight trend, po intake, nutrition-related labs, Time Spent in Nutritional Counseling and Treatment: 0
[2024-06-14 07:01] LABS: Anion Gap 7.2 mmol/L (3-11); BUN 15 mg/dL (7-18); CO2 29.8 mmol/L (21.0-32.0); CREATININE 1.1 mg/dL (0.55-1.02); Calcium 8.8 mg/dL (8.5-10.1); Chloride 109 mmol/L (98-107); Estimated GFR 56.46 (mL/min/1.73m2); Glucose 100 mg/dL (74-106); Magnesium 2.2 mg/dL (1.8-2.4); Potassium 3.3 mmol/L (3.5-5.1); Sodium 146 mmol/L (136-145)
[2024-06-14] MEDS: Normal Saline Flush 10 ML SYR IVP ×2 (08:10→19:58)
[2024-06-14] MEDS: Polyethylene Glycol 3350 17 GM PACKET PO (08:11)
[2024-06-14] MEDS: Pantoprazole 40 MG VIAL IVP (08:11)
[2024-06-14] MEDS: predniSONE 1 MG TAB PO ×2 (08:12→19:53)
[2024-06-14] MEDS: Amoxicillin 875/Clav. 125 TAB PO ×2 (08:12→19:55)
[2024-06-14] MEDS: Benzonatate 200 MG CAP PO ×3 (08:12→22:17)
[2024-06-14] MEDS: Hydrocortisone 10 MG TAB PO ×2 (08:12→19:58)
[2024-06-14] MEDS: Famotidine 20 MG TAB 40 MG PO (08:12)
[2024-06-14] MEDS: Metoprolol CR 100 MG TABCR PO ×2 (08:13→19:53)
[2024-06-14] MEDS: Allopurinol 100 MG TAB PO ×2 (08:13→19:55)
[2024-06-14] MEDS: Docusate Sodium 100 MG CAP PO ×2 (08:13→19:53)
[2024-06-14] MEDS: Amiodarone 200 MG TAB 400 MG PO ×2 (08:13→19:54)
[2024-06-14] MEDS: POTASSIUM CHLORIDE 20 MEQ/100 ML BAG 50 MEQ IV_INF (08:16)
[2024-06-14] MEDS: Potassium Chloride Liquid 20 MEQ PKT PO (08:18)
--- NOTE | 2024-06-14 12:04 | PGE_ITS ---
Date of Service Date of service: 06/14/24 Time of Service: 08:35 Assessment and Plan Assessment and plan (1) Aspiration pneumonitis: Status: Acute Assessment and plan: - continues to improve. lekuocytosis normalized - Now on oral Augmentin 875mg PO BID to finish course. (2) Hemoptysis: Status: Acute Assessment and plan: Holding apixaban and maddie hemoptysis resolved. Likely caused by acute infection, will resume today. (3) Atrial fibrillation: Status: Chronic Assessment and plan: - case d/w ELECTRIC CAR OPERATOR on cardiology service at [facility] [place] - recommended changing to metoprolol succ to 100mg BID as per outpatient dosing and increase amiodarone to 400mg BID, done 06/13 - Stable off drip, to floor status. - will need to follow with [facility] in near future to revisit possibility of ablation (4) Hypothyroidism: Assessment and plan: - on armor thyroid, TSH low but so is free-T4 so will leave this. Levothyroxine would be preferred, to have more steady and predictable levels, as fluctuating thyroid levels could trigger atrial fibrillation, but will defer to PCP. (5) Secondary adrenal insufficiency: Assessment and plan: - continue outpatient dosing of hydrocortisone and prednisone Subjective Subjective Patient reports: no new complaints, tolerating a regular diet and voiding w/o difficulty; denies diarrhea, nausea, vomiting or fever Interval history since last seen: Diltiazem drip off at 23:15 last night Feeling better this morning. No chest pain, not dizzy. Breathing has improved. Exam Narrative Exam Narrative: A&O, comfortable on room air, no apparent distress. CV: Irregularly irregular, normal rate around 80, no M/G. Lungs CTAB. Trace reta edema, not pitting. Objective Last Vital Signs Temp 36.8 C 06/14/24 11:22 Pulse 72 06/14/24 11:21 Resp 27 H 06/14/24 11:21 BP 131/104 H 06/14/24 11:21 Pulse Ox 93 06/14/24 11:21 Laboratory Results - last 24 hr 06/14/24 05:40 WBC 5.27 RBC 4.89 Hgb 14.4 Hct 44.6 MCV 91 MCH 29.4 MCHC 32.3 RDW 13.9 Plt Count 196 MPV 10.8 Immature Gran % 0.4 Neutrophils % 67.6 Lymphocytes % 14.0 Monocytes % 14.0 Eosinophils % 3.4 Basophils % 0.6 Nucleated RBC % 0.0 Absolute Neutrophils 3.56 Absolute Lymphocytes 0.74 L Absolute Monocytes 0.74 Absolute Eosinophils 0.18 Absolute Basophils 0.03 Sodium 146 H Potassium 3.3 L Chloride 109 H Carbon Dioxide 29.8 Anion Gap 7.2 BUN 15 Creatinine 1.1 H Est GFR (CKD-EPI 2020) 56.46 Glucose 100 Calcium 8.8 Magnesium 2.2 Time Spent with Patient Time Spent with Patient: 35-49 minutes Time was spent: preparing to see the patient(eg.review tests), obtaining and/or reviewing separately otained hiistory, ordering medications,tests, procedures, referring, communicating with other health aged or disabled care worker, indepentently interpreting results, counseling the patient and care coordination
[2024-06-14] MEDS: Albuterol/Ipratropium 3 ML UPD VIAL UPD (14:32)
[2024-06-14] MEDS: Hydrocortisone 10 MG TAB 20 MG PO (16:45)
[2024-06-14] MEDS: Apixaban 5 MG TAB PO (19:53)
[2024-06-15 01:57] VITALS: BP 134/101; PULSE 71; PULSE 80; RESP 23; O2SAT 94
[2024-06-15 02:00] VITALS: PULSE 87; PULSE 92; RESP 23; O2SAT 97
[2024-06-15 02:01] VITALS: TEMP 36.3
[2024-06-15 05:07] VITALS: BP 144/92; PULSE 61; PULSE 72; RESP 14; O2SAT 97
[2024-06-15] MEDS: Thyroid 60 MG TAB 120 MG PO (05:43)
[2024-06-15] MEDS: Benzonatate 200 MG CAP PO (05:46)
[2024-06-15 06:49] LABS: Anion Gap 6.5 mmol/L (3-11); BUN 12 mg/dL (7-18); CO2 31.5 mmol/L (21.0-32.0); Calcium 8.8 mg/dL (8.5-10.1); Chloride 110 mmol/L (98-107); Glucose 103 mg/dL (74-106); Potassium 3.8 mmol/L (3.5-5.1); Sodium 148 mmol/L (136-145)
[2024-06-15 07:30] VITALS: O2SAT 92
[2024-06-15] MEDS: Hydrocortisone 10 MG TAB PO (08:08)
[2024-06-15] MEDS: predniSONE 1 MG TAB PO (08:08)
[2024-06-15] MEDS: Allopurinol 100 MG TAB PO (08:08)
[2024-06-15] MEDS: Amoxicillin 875/Clav. 125 TAB PO (08:08)
[2024-06-15] MEDS: Apixaban 5 MG TAB PO (08:08)
[2024-06-15] MEDS: Metoprolol CR 100 MG TABCR PO (08:09)
[2024-06-15] MEDS: Amiodarone 200 MG TAB 400 MG PO (08:09)
[2024-06-15] MEDS: Normal Saline Flush 10 ML SYR IVP (08:10)
[2024-06-15] MEDS: Hydrocortisone 10 MG TAB (08:14)
[2024-06-15 08:21] VITALS: BP 156/118; PULSE 75; PULSE 84; RESP 21; O2SAT 95
--- NOTE | 2024-06-15 08:50 | STREC_ITS ---
Date of service: 06/11/24 Time of Service: 16:30 Speech Therapy Recommendations Report ST Recommendations: COPY CAMERA OPERATOR spoke with provider/Tammy Santana re: COPY CAMERA OPERATOR consult. Agreement to discontinue consult at this time as patient's pneumonitis is suspected reflux aspiration du ring recent procedure. Per COPY CAMERA OPERATOR screening interview with patient and consultation with nursing, no oral pharyngeal dysphagia signs/symptoms identified. Provider OK to complete COPY CAMERA OPERATOR order at this time, have patient follow a regular diet, with plan to reconsult if oral pharyngeal dysphagia concerns arise.
--- NOTE | 2024-06-15 08:50 | PDOC.STREC ---
Date of service: 06/11/24 Time of Service: 16:30 Speech Therapy Recommendations Report ST Recommendations: CERTIFIED MARINE MECHANIC spoke with provider/Tammy Santana re: CERTIFIED MARINE MECHANIC consult. Agreement to discontinue consult at this time as patient's pneumonitis is suspected reflux aspiration during recent procedure. Per CERTIFIED MARINE MECHANIC screening interview with patient and consultation with nursing, no oral pharyngeal dysphagia signs/symptoms identified. Provider OK to complete CERTIFIED MARINE MECHANIC order at this time, have patient follow a regular diet, with plan to reconsult if oral pharyngeal dysphagia concerns arise.
--- NOTE | 2024-06-15 09:16 | PDOC.CMPRO ---
Date of service: 06/15/24 Time of Service: 09:16 Care Management Progress Note Discharge Potential Discharge Needs: PCP F/U Appt Anticipated Barriers to Discharge: None Identified Patient/Family Education Needs: Review discharge instructions, discuss Ask Me Three Transportation: Private vehicle Plan: Anticipate Jacinda will be discharged home with no new services when medically cleared. She will follow up with her PCP and plan of care and transport with family. CM will follow and continue to assess for discharge needs. Social Determinants of Health Screening Social Determinants of Health last assessed: 06/15/24 Will the Patient Participate in the Screening?: Yes Do you worry about having a steady place to live?: no Problems where you live: no known problems In the past 12 months, have you had to go without electric, gas, oil or water in your home?: no Have you or anyone in your house had to go without enough food to eat?: no Has lack of transportation kept you from medical appointments or from doing things needed for daily living?: no Has anyone in your life made you feel unsafe or unsupported?: no How hard is it for you to pay for the very basics like food, housing, medical care, and heating? Would you say it is:: Not hard at all Do you want help finding or keeping work or a job?: I do not need or want help If for any reason you need help with day-to-day activities such as bathing, preparing meals, shopping, managing finances, etc., do you get the help you need?: I get all the help I need How often do you feel lonely or isolated from those around you?: Never Do you speak a language other than [place] at home?: Yes Does the patient want assistance with any of the above?: No Health Related Social Needs Health related social needs: education (Z55.6)
--- NOTE | 2024-06-15 09:32 | W.PM.DS.N ---
Date of service: 06/15/24 Time of Service: 09:32 DS: Diagnosis Discharge Diagnosis (1) Aspiration pneumonitis: Status: Acute (2) Hemoptysis: Status: Acute (3) Atrial fibrillation: Status: Chronic (4) Hypothyroidism: (5) Secondary adrenal insufficiency: Discharge Plan Disposition Patient Disposition: Home Condition: Stable Discharge Details Reason For Visit: Pneumonia, Hypoxic Resp Failure, Hemoptysis, Pleur Admit Date/Time: 06/11/24 10:18 Admit Provider: Georgi Cha Attending Provider: Georgi Cha Primary Care Provider: Irina Lovell [facility] Hospital Course: 63 yo F with adrenal insufficiency and atrial fibrillation who [place] [facility] [place] to chills, fatigue, and cough with hemoptysis. CT of the chest showed possible aspiration pneumonia vs pneumonitis. Her apixaban was held and she was admitted and treated with ampicillin/sulbactam. She was given a dose of IV hydrocortisone then continued on her oral hydrocortisone and prednisone. Amp/sulbactam was transitioned to amoxicillin/clavulonate orally. She was discharged with one more day of antibiotics to complete a 5 day course of therapy. Early in the morning of 06/13 she went into atrial fibrillation with rapid ventricular response. She was transferred to the ICU and started on diltiazem drip. Cardiology contacted who suggested increasing amiodarone from 400mg daily to BID and continuing metoprolol succinate at 100mg BID. Diltiazem was titrated off by 23:30 on 06/13 and oral diltiazem was not resumed. She remained in atrial fibrillation and her rate was controlled on the oral metoprolol and amiodarone. She did require an additional 20mg hydrocortisone orally on 06/14 based on her symptoms. She should continue to adjust her steroid dosing based on her outpatient care plan. Her apixaban was restarted 06/14 and she did no have recurrence of hemoptysis. Home Meds and New Rx's Prescriptions: New benzonatate 200 mg Capsule 200 mg PO TID PRN PRN (Reason: cough) Qty: 20 0RF docusate sodium [Colace] 100 mg Capsule 100 mg PO BID Qty: 60 0RF amoxicillin-pot clavulanate 875-125 mg Tablet 1 tab PO BID 1 Days Qty: 2 0RF Continued apixaban 5 mg tablet 5 mg .ROUTE BID Qty: 180 3RF Rx Instructions: 5 mg twice a day; prednisone 1 mg tablet 1 mg PO BID Patient Comments: *DOSE VARIES DEPENDING ON SEVERITY OF ADRENAL CRISIS PER PATIENT* famotidine 40 mg tablet 40 mg PO DAILY metoprolol succinate 100 mg tablet extended release 24 hr 100 mg PO BID Qty: 180 3RF hydrocortisone 5 MG tablet See Rx Instructions PO DAILY Patient Comments: *DOSE VARIES DEPENDING ON SEVERITY OF ADRENAL CRISIS; MOST RECENTLY TAKING 30MG IN AM AND 20MG IN PM PER PATIENT 06/11/24 -, [facility]* Rx Instructions: orally daily; Norditropin FlexPro 10 mg/1.5 mL (6.7 mg/mL) pen injector 0.2 mg SUBCUT .COMPLEX Rx Instructions: 0.2 mg subcutaneously 3xs/week; thyroid (pork) [P[employer]ALL[employer] Thyroid] 60 mg tablet 120 mg PO DAILY allopurinol 100 mg tablet 100 mg PO BID Patient Comments: TAKE ONE TABLET BY MOUTH EVERY DAY IN THE MORNING FOR GOUT Changed amiodarone 400 mg tablet 400 mg PO BID Qty: 0 0RF Patient Comments: TAKE 1 TABLET BY MOUTH DAILY Discontinued diltiazem HCl [DILT-XR] 240 mg capsule,ext.rel 24h degradable 240 mg PO DAILY Patient Comments: TAKE 1 CAPSULE BY MOUTH DAILY Discharge Instructions Instructions: Aspiration Pneumonia (DC) Additional Instructions: You have one more days of antibiotics for pneumonia You should increase the amiodarone to twice a day. You should continue the apixaban. Follow up with Dr. Stover's office within two weeks. They may want to cut back on the amiodarone dose and talk to you about other ways to get you out of atrial fibrillation. Referrals: Emiliana Stover MD [ [facility] STAFF PHYSICIAN] - Activity:: Activity as Tolerated Equipment/Supplies:: No Equipment Needed Diet:: As Tolerated Discharge Orders Discharge Orders: Discharge Order (Routine); Ordered 06/15/24 Ordered By: Mehran Prather DS: Summary Time Spent with Patient providing and/or coordinating discharge services: Greater than 30 minutes Status at Discharge Functional status at discharge: independent ambulation Overall status at discharge: patient is progressing back to baseline Mental Status: mental status grossly normal Speech and Movement: speech and movement normal Mood: congruent mood Affect: normal affect Quality:SDOH Health Related Social Needs: Health related social needs education (Z55.6) Exam Narrative Exam Narrative: A&O, comfortable on room air, no apparent distress. CV: Irregularly irregular, normal rate around 80, no M/G. Lungs CTAB. Trace reta edema, not pitting. Psych Mental Status: mental status grossly normal Speech and Movement: speech and movement normal Mood: congruent mood Affect: normal affect DS: Data Vitals/I&O Vitals and I&O: Vital Signs Temperature 36.3 C L 06/15/24 02:01 Temperature Source Temporal Artery Scan 06/15/24 02:01 Pulse 75 06/15/24 08:21 Pulse Rhythm Regular 06/11/24 12:05 Pulse 84 06/15/24 08:21 Respiratory Rate 21 06/15/24 08:21 Respiratory Effort Normal 06/13/24 00:31 Respiratory Depth Normal 06/11/24 12:05 Respiratory Pattern Tachypnea 06/13/24 00:31 Blood Pressure 156/118 H 06/15/24 08:21 Blood Pressure Mean 126 06/15/24 08:21 Blood Pressure Position Sitting 06/11/24 04:59 Pulse Oximetry 95 06/15/24 08:21 Respiratory End-tidal CO2 1 06/11/24 07:31 Oxygen Delivery Method Room Air 06/15/24 07:30 Oxygen Flow Rate 0 06/15/24 07:30 Pain Level 2 06/14/24 08:51 Comment duberhaneb updraft to be given 06/12/24 03:58 Intake & Output 06/14/24 06/14/24 06/15/24 11:59 23:59 11:59 Intake Total 1249 / 2009 480 / 480 Output Total 800 / 1500 700 / 1500 Balance 450 / 510 60 / 510 480 / 480 Intake: IV 100 / 100 Oral 1150 / 1910 760 / 1910 480 / 480 Output: Urine 800 / 1500 700 / 1500 Other: Urine Color Yellow Yellow Yellow Urine Appearance Clear Clear Clear Urine Odor Normal None None Comment 250mL clear yellow urine voided in bedside commode prior to shift start. Patient voided unmeasured amount in toilet. Data Completed and Pending Labs on day of discharge: Labs from last 24 hours 06/15/24 05:25 Sodium 148 H Potassium 3.8 Chloride 110 H Carbon Dioxide 31.5 Anion Gap 6.5 BUN 12 Creatinine 1.0 Est GFR (CKD-EPI 2020) 63.30 Glucose 103 Calcium 8.8 Preliminary micro results at discharge 06/11/24 11:05 Blood Culture - Preliminary Blood NO GROWTH 72 HOURS 06/11/24 10:58 Blood Culture - Preliminary Blood NO GROWTH 72 HOURS PFSH All Active Problems (Updated 06/14/24 @ 12:07 by Mehran Prather) Hemoptysis (Acute) Aspiration pneumonitis (Acute) Ground glass opacity present on imaging of lung (Acute) Cough with hemoptysis (Acute) Atrial fibrillation (Chronic) Medical History Secondary adrenal insufficiency Splenic infarction Atrial fibrillation History of cerebral meningioma Class 3 obesity Hypothyroidism Hx of hiatal hernia Surgical History S/P selective transsphenoidal pituitary adenomectomy pilar cyst (10/11/17) Oophrectomy, Both Xi Fundoplication Excision, Scalp Mass 06/10/17 Colonoscopy - MAC (12/03/16) Cholecystectomy Family History Father Heart disease Mother Stroke Other Hyperlipidemia Social History Smoking/Tobacco Use Status: Never Smoking risk assessment performed?: Yes Alcohol Intake: former Drug use: Never Substance use type: does not use Housing: house Do you feel safe at home: Yes Do you feel safe in your relationship?: Yes Additional Social history: Lives with Fabio in [place]. Practices [facility]. Cares for Grandchild Time Spent with Patient Time Spent with Patient: <45 minutes Time was spent: preparing to see the patient(eg.review tests), obtaining and/or reviewing separately otained hiistory, ordering medications,tests, procedures, referring, communicating with other health palliative care specialist, indepentently interpreting results, counseling the patient and care coordination
--- NOTE | 2024-06-15 11:04 | PDOC.CMDIS ---
Date of service: 06/15/24 Time of Service: 11:04 LACE Index Scoring Tool Questions: Length of Stay (in days): 4 - 6 Was the patient admitted via the E.D.?: Yes E.D. Visits: 2 Answers: Total Score: 9 Risk of Readmission: Low Risk Care Management Discharge Plan Reason for Hospitalization: Pneumonia Discharge Plan: Discharge home via private vehicle with family. Follow up with his PCP, Cardiology and discharge plan of care as directed. No new services were ordered at the time of this discharge. Patient/Family Education Needs: Review discharge instructions and plan to follow up with community providers. Discuss ask me three. SDOH Health Related Social Needs: Health related social needs education (Z55.6)
== END 2024-06-15 10:45 | disposition home or self-care (01) | DRG 178 ==
LOC: ER 09:58 → MS 12:23 → ICU 06-13 00:28
PROVIDERS: Emergency Medicine; Nurse Practitioner Acute Care; Admitting Provider Hospitalist; Emergency Provider Student in an Organized Health Care Education/Training Program; PCP Family Medicine; Responsible Provider Family Medicine; Visit Provider Hospitalist
DX: J69.0 Pneumonitis due to inhalation of food and vomit (principal); E27.49 Other adrenocortical insufficiency; I48.19 Other persistent atrial fibrillation; Z68.43 Body mass index [BMI] 50.0-59.9, adult; E03.9 Hypothyroidism, unspecified; E04.2 Nontoxic multinodular goiter; E66.813 Obesity, class 3
CPT/HCPCS: 00123; 36415; 71275; 74177; 80048; 80053; 87040; 87637; 93005; 94761; 96365; 96366; 99285; 83735; 84484; 85025; 93010; 94640; 94760; 99223; 99232; 99233; 99239; J0295; J1720; J2470; J3480; J3490; J7620

== ENCOUNTER 2024-06-24 07:42 | Outpatient (CLI) | payer BC, SELFPAY ==
[2024-06-24 08:56] LABS: TSH 0.32 uIU/mL (0.36-3.74); Vitamin D 25 Total 21 ng/mL (30-100)
[2024-06-24 09:12] LABS: Hemoglobin A1C 6.3 % (<5.7)
[2024-06-24 22:43] LABS: T3,Free 4.3 pg/mL (2.8-5.3); T4, Free 1.5 ng/dL (0.8-2.2)
[2024-06-25 17:35] LABS: Adrenocorticotropic Hormone, P 22 pg/mL
[2024-06-29 14:30] LABS: T3 (Triiodothyronine) Reverse 39 ng/dL (10-24)
[2024-07-03 15:49] LABS: IGF-1, LC/MS, S 182 ng/mL (35-201); Z-score 1.65 SD
== END 2024-06-24 07:43 | disposition home or self-care (01) ==
LOC: LBO 07:42
PROVIDERS: PCP Family Medicine; Visit Provider Internal Medicine Endocrinology, Diabetes & Metabolism
DX: E24.9 Cushing's syndrome, unspecified (principal)
CPT/HCPCS: 36415; 82306; 82533; 82024; 83036; 84305; 84439; 84443; 84481; 84482

== ENCOUNTER 2024-08-03 11:17 | Observation (INO) | payer BC, SELFPAY ==
[2024-08-03] VITALS (41 sets, daily range): BP systolic 120–195; BP diastolic 64–94; PULSE 49–118; RESP 14–28; TEMP 36–36.6; O2SAT 87–99
--- NOTE | 2024-08-03 11:15 | RT.EKG_ITS ---
APPROVED REPORT Exam: Resting ECG Reason for Exam: SOB Patient Location: E HR:55 bpm ECG Measurements Heart Rate 55 AXIS SD 148 P 29 QRSd 94 QRS 65 QT 493 T 64 QTc 474 Conclusion Sinus bradycardia, rate 55 No interval abnormalities No STEMI Compared to priors, A-fib has resolved
--- NOTE | 2024-08-03 11:30 | DI.CT_ITS ---
Exam(s) CT CHEST PE CTA EXAM: CT CHEST PE CTA CLINICAL HISTORY: SOB, Recent travel, swollen legs. TECHNIQUE: Imaging Protocol: Axial CT angiography was performed with multi-slice acquisition and mu lti-planar and/or 3D reconstructions. Lung Computer Aided Detection (CAD) was utilized. CONTRAST MATERIAL: Intravenous: Omnipaque 350 contrast volume:100 mL COMPARISON: CT CT CHEST PE ABD PELVIS W from 06/11/2024 FINDINGS: Tracheobronchial tree: Patent where visualized. No bronchiectasis. Pulmonary parenchyma: There are ground-glass opacities in the lungs. No focal consolidating infiltra tariq are seen. No architectural distortion. Pulmonary Arteries: No evidence of filling defect to suggest pulmonary emboli. Mediastinum and Laina: No dominant adenopathy or fluid collection. The esophagus is unremarkable. Th ere is a small hiatal hernia. Pleura: There are small bilateral pleural effusions. Pneumothorax. Heart: Cardiomegaly. There is no evidence of right heart strain. Mild coronary artery calcification is present. No pericardial effusion. Aorta: Thoracic aorta non-dilated. Mild atherosclerotic calcification is present. Upper abdomen: Postsurgical changes are seen at the gastroesophageal junction. Status post cholecys tectomy. Soft tissues: Unremarkable. Bones: Within normal limits for the patient's age. IMPRESSION: 1. No evidence of a pulmonary embolism or thoracic aortic aneurysm. 2. Small bilateral pleural effusions. 3. Nonspecific ground-glass opacities in the lung. Infection,, edema or atelectasis should be consid ered. Please correlate clinically. RADIATION DOSE DELIVERED: 401.16mGy.cm Total DLP DATA REPOSITORY: All CT scans at this facility are submitted to the National Radiology Data Registry (NRDR) Dose Index Registry (DIR) with the [employer] ([employer]). RADIATION OPTIMIZATION: All CT scans at this facility use at least one of these dose optimization te chniques: automated exposure control; mA and/or kV adjustment per patient size (includes targeted exa ms where dose is matched to clinical indication); or iterative reconstruction.
--- NOTE | 2024-08-03 11:40 | NUR.NOTE ---
Nursing Note: pt arrived w/ o2 of 87% RA, pt baseline does not have oxygen requirement. 1 L/min via NC placed, satting 96%.
--- NOTE | 2024-08-03 11:46 | W.ED.GENAD ---
Discharge Plan Disposition Patient Disposition: Admit to [facility] Condition: Stable Discharge Details Clinical Impression: New onset of congestive heart failure Primary Care Provider: Irina Lovell ED Provider: Ros Lucas Home Meds and New Rx's Prescriptions: No Action apixaban 5 mg tablet 5 mg .ROUTE BID Qty: 180 3RF Rx Instructions: 5 mg twice a day; prednisone 1 mg tablet 1 mg PO BID Patient Comments: *DOSE VARIES DEPENDING ON SEVERITY OF ADRENAL CRISIS PER PATIENT* famotidine 40 mg tablet 40 mg PO DAILY metoprolol succinate 100 mg tablet extended release 24 hr 100 mg PO BID Qty: 180 3RF hydrocortisone 5 MG tablet See Rx Instructions PO DAILY Patient Comments: *DOSE VARIES DEPENDING ON SEVERITY OF ADRENAL CRISIS; MOST RECENTLY TAKING 30MG IN AM AND 20MG IN PM PER PATIENT 06/11/24 -[facility]* Rx Instructions: orally daily; Norditropin FlexPro 10 mg/1.5 mL (6.7 mg/mL) pen injector 0.2 mg SUBCUT .COMPLEX Rx Instructions: 0.2 mg subcutaneously 3xs/week; benzonatate 200 mg Capsule 200 mg PO TID PRN PRN (Reason: cough) Qty: 20 0RF docusate sodium [Colace] 100 mg Capsule 100 mg PO BID Qty: 60 0RF amiodarone 400 mg tablet 400 mg PO BID Qty: 0 0RF Patient Comments: TAKE 1 TABLET BY MOUTH DAILY allopurinol 100 mg tablet 100 mg PO BID Patient Comments: TAKE ONE TABLET BY MOUTH EVERY DAY IN THE MORNING FOR GOUT thyroid (pork) [[employer] SOFTWARE DEVELOPER Thyroid] 90 mg tablet 45 mg PO DAILY Patient Comments: TAKE 1/2 TABLET BY MOUTH TWICE DAILY HPI General Mode of arrival: ambulatory. Date/Time Provider Initiated Documentation: 08/03/24 11:21. Limitations to Documentation: no limitations. Information obtained by: patient, RN notes reviewed and old records reviewed. HPI Narrative: 63-year-old female presents to the ER with chief complaint of sudden onset of shortness of breath which began 1 week ago while she was traveling to [place]. She reports that she had a dry cough, no hemoptysis no palpitations denies any chest pain. She also states that later in the week she went in and out of atrial fibrillation during her vacation. Of note she was admitted approximately 1 month ago for aspiration pneumonia versus pneumonitis and was placed on antibiotics at that time. During her hospital stay she did go into A-fib with RVR and was placed on increased dose of her amiodarone and metoprolol. She does note some increased swelling to her lower extremities however she attributes that to the heat and humidity in [place]. She does have a history of obesity, adrenal insufficiency splenic infarction, cerebral meningioma, hypothyroidism hiatal hernia atrial fibrillation. She does take apixaban 5 mg tablets twice daily. She is not tachycardic however she is on the beta-blockers. Of note also per RN report that she was 86% on room air after walking to stretcher with increased WOB. Patient then quickly came up to 93% on liters nasal cannula. Related Data Home Medications ?Medication ?Instructions ?Recorded ?Confirmed hydrocortisone 5 mg tablet See Rx Instructions PO DAILY 06/06/17 08/03/24 allopurinol 100 mg tablet 100 mg PO BID 01/09/24 08/03/24 famotidine 40 mg tablet 40 mg PO DAILY 01/20/24 08/03/24 metoprolol succinate 100 mg 100 mg PO BID #180 tabs 01/20/24 08/03/24 tablet,extended release 24 hr prednisone 1 mg tablet 1 mg PO BID 01/20/24 08/03/24 apixaban 5 mg tablet 5 mg .Route BID #180 tabs 02/10/24 08/03/24 somatropin 10 mg/1.5 mL (6.7 0.2 mg subcut .COMPLEX 06/11/24 08/03/24 mg/mL) subcutaneous pen injector (Norditropin FlexPro) amiodarone 400 mg tablet 400 mg PO BID #0 tabs 06/15/24 08/03/24 benzonatate 200 mg capsule 200 mg PO TID PRN PRN cough #20 06/15/24 08/03/24 caps docusate sodium 100 mg capsule 100 mg PO BID #60 caps 06/15/24 08/03/24 (Colace) thyroid (pork) 90 mg tablet ([employer] DEVELOPER 45 mg PO DAILY 08/03/24 08/03/24 Thyroid) Previous Rx's ?Medication ?Instructions ?Recorded metoprolol succinate 100 mg 100 mg PO BID #180 tabs 01/20/24 tablet,extended release 24 hr apixaban 5 mg tablet 5 mg .Route BID #180 tabs 02/10/24 amiodarone 400 mg tablet 400 mg PO BID #0 tabs 06/15/24 benzonatate 200 mg capsule 200 mg PO TID PRN PRN cough #20 06/15/24 caps docusate sodium 100 mg capsule 100 mg PO BID #60 caps 06/15/24 (Colace) Allergies Allergy/AdvReac Type Severity Reaction Status Date / Time phenytoin sodium (From Allergy Severe Hives Verified 08/03/24 11:32 Dilantin) phenytoin sodium extended Allergy Severe Hives Verified 02/27/24 10:49 (From Dilantin) multiple chemical AdvReac Intermediate upper Uncoded 08/03/24 11:32 sensitivites Resp. issues FISHER, congestion General Stated Complaint: SOB/SuddenOnset CEM: 3 Review of Systems All systems reviewed & are unremarkable except as noted in HPI and below Cardiovascular Cardiovascular: Reports dyspnea and Reports dyspnea on exertion Respiratory Respiratory: Reports dyspnea and Reports dyspnea on exertion Exam Narrative Exam Narrative: Constitutional: Alert and oriented x3. Appears stated age. Obese body habitus. Head: Normocephalic, no trauma. Eyes: Pupils PERRL, Red reflex noted, EOM's intact. Eyelids symmetrical without lesions, discharge, or swelling. ENT: Bilateral TM's WNL, External ear normal to inspection, no mastoid TTP, swelling, or erythema, Nasal turbinates WNL, no nasal discharge. Normal dentition, Posterior pharynx WNL, no exudate. Chest: RRR, Normal S1, S2, distal pulses intact. Resp: Lungs clear to auscultation bilaterally, no wheezes, rales, or rhonchi. Abdomen: Soft, non-distended, Normoactive bowel sounds all 4 quads. Musculoskeletal: Normal gait, Moves all 4 extremities without difficulty. 1+ pitting edema noted to lower extremities. Bilaterally. Skin: No suspicious rashes or lesions. Capillary refill less than 2 sec. Neurologic: Cranial nerves II-XII intact. Alert and oriented x 3. Motor: No deficits noted. Sensory: Intact bilaterally all 4 extremities. Hematologic/Lymphatic: No ecchymosis, no lymphadenopathy. Course Vital Signs Vital signs: Vital Signs Temperature 36.3 C L 08/03/24 11:28 Pulse 54 L 08/03/24 11:28 Respiratory Rate 18 08/03/24 11:28 Blood Pressure 158/93 H 08/03/24 11:28 Pulse Oximetry 93 08/03/24 11:28 Temperature 36.3 C L 08/03/24 11:28 Temperature Source Oral 08/03/24 11:28 Pulse 54 L 08/03/24 11:28 Respiratory Rate 18 08/03/24 11:28 Blood Pressure 158/93 H 08/03/24 11:28 Blood Pressure Position Sitting 08/03/24 11:28 Pulse Oximetry 93 08/03/24 11:28 Oxygen Delivery Method Nasal Cannula 08/03/24 11:28 Oxygen Flow Rate 1 08/03/24 11:28 Medical Decision Making 63-year-old female presents to the ER with chief complaint of sudden onset of shortness of breath which began 1 week ago while she was traveling to [place]. She reports that she had a dry cough, no hemoptysis no palpitations denies any chest pain. She also states that later in the week she went in and out of atrial fibrillation during her vacation. Of note she was admitted approximately 1 month ago for aspiration pneumonia versus pneumonitis and was placed on antibiotics at that time. During her hospital stay she did go into A-fib with RVR and was placed on increased dose of her amiodarone and metoprolol. She does note some increased swelling to her lower extremities however she attributes that to the heat and humidity in [place]. She does have a history of obesity, adrenal insufficiency splenic infarction, cerebral meningioma, hypothyroidism hiatal hernia atrial fibrillation. She does take apixaban 5 mg tablets twice daily. She is not tachycardic however she is on the beta-blockers. Of note also per RN report that she was 86% on room air after walking to stretcher with increased WOB. Patient then quickly came up to 93% on liters nasal cannula. Workup ordered including CBC CMP. PT PTT magnesium troponin proBNP and CT chest to rule out PE. CBC shows no leukocytosis, neutrophils slightly elevated 8.48, sodium potassium within normal limits, creatinine 1.4 GFR is 42 AST 40 ALT 63 proBNP 2376. Initial troponin is 19 and serial 1 hour troponin is also 19. CT is pending. Furosemide 20 mg IV ordered according to patient's medication history she is Lasix na?ve. Patient has had at least 900 cc of urine output since the 20 mg of Lasix. She has been on room air at rest satting 94 to 95% however with exertion she does drop down to 87 to 88% on room air. I will offer her admission due to the new onset of CHF as a cause for her shortness of breath. I did speak with patient regarding for my concern for her drop in oxygenation with exertion she verbalized understanding. She is in agreement to admission if needed. Hospitalist paged. [id number]: Spoke with Dr. Kowalski and hospitalist team regarding patient case and details, he agrees to come and eval patient in dept for possible admission versus DC to home. Admission orders placed by hospitalist patient will transported up to the floor for further observation and treatment. This text was generated using [employer] dictation system, please disregard any oddities of phrase or misspellings. Medical Records Medical records reviewed: Yes I reviewed the patient's medical records. Imaging Data Radiologic Study: Imaging: CT Scan Radiologist's impression: Lung Computer Aided Detection (CAD) was utilized. CONTRAST MATERIAL: Intravenous: Omnipaque 350 contrast volume:100 mL COMPARISON: CT CT CHEST PE ABD PELVIS W from 06/11/2024 FINDINGS: Tracheobronchial tree: Patent where visualized. No bronchiectasis. Pulmonary parenchyma: There are ground-glass opacities in the lungs. No focal consolidating infiltrates are seen. No architectural distortion. Pulmonary Arteries: No evidence of filling defect to suggest pulmonary emboli. Mediastinum and Laina: No dominant adenopathy or fluid collection. The esophagus is unremarkable. There is a small hiatal hernia. Pleura: There are small bilateral pleural effusions. Pneumothorax. Heart: Cardiomegaly. There is no evidence of right heart strain. Mild coronary artery calcification is present. No pericardial effusion. Aorta: Thoracic aorta non-dilated. Mild atherosclerotic calcification is present. Upper abdomen: Postsurgical changes are seen at the gastroesophageal junction. Status post cholecystectomy. Soft tissues: Unremarkable. Bones: Within normal limits for the patient's age. IMPRESSION: 1. No evidence of a pulmonary embolism or thoracic aortic aneurysm. 2. Small bilateral pleural effusions. 3. Nonspecific ground-glass opacities in the lung. Infection,, edema or atelectasis should be considered. Please correlate clinically. Lab Data Lab results reviewed: Yes I reviewed the patient's lab results. Labs: Laboratory Tests Range/Units 08/03/24 08/03/24 11:45 12:29 WBC (4.4-10.8) 10^3/uL 9.76 RBC (3.93-5.22) 10^6/uL 4.47 Hgb (11.2-15.7) g/dL 13.4 Hct (36.0-46.0) % 42.6 MCV (80-95) fL 95 MCH (27.0-33.0) pg 30.0 MCHC (32.0-36.0) % 31.5 L RDW (11.7-14.6) % 14.6 Plt Count (130-400) 10^3/uL 265 MPV (8.0-11.0) fL 10.1 Immature Gran % % 0.9 Neutrophils % % 86.9 Lymphocytes % % 3.7 Monocytes % % 6.8 Eosinophils % % 1.3 Basophils % % 0.4 Nucleated RBC % (0.0-0.3) % 0.0 Absolute Neutrophils (1.2-6.7) 10^3/uL 8.48 H Absolute Lymphocytes (1.2-3.4) 10^3/uL 0.36 L Absolute Monocytes (0.1-0.8) 10^3/uL 0.66 Absolute Eosinophils (0.0-0.7) 10^3/uL 0.13 Absolute Basophils (0.0-0.2) 10^3/uL 0.04 PT (9.1-11.1) sec 11.0 INR (0.9-1.1) 1.1 APTT (20.6-30.2) sec 25.9 Sodium (136-145) mmol/L 143 Potassium (3.5-5.1) mmol/L 4.0 Chloride (98-107) mmol/L 108 H Carbon Dioxide (21.0-32.0) mmol/L 28.6 Anion Gap (3-11) mmol/L 6.4 BUN (7-18) mg/dL 16 Creatinine (0.55-1.02) mg/dL 1.4 H Est GFR (CKD-EPI 2020) (mL/min/1.73m2) 42.27 Glucose (74-106) mg/dL 128 H Calcium (8.5-10.1) mg/dL 8.8 Magnesium (1.8-2.4) mg/dL 1.9 Total Bilirubin (0.2-1.0) mg/dL 0.7 AST (15-37) U/L 40 H ALT (14-59) U/L 63 H Alkaline Phosphatase (46-116) U/L 55 Troponin I (<or=51) ng/L 19 19 NT-Pro-B Natriuret Pep (<300) pg/mL 2376 H Total Protein (6.4-8.2) g/dL 5.9 L Albumin (3.4-5.0) g/dL 3.1 L Quality:SDOH Health Related Social Needs: Health related social needs education (Z55.6) PFSH All Active Problems (Updated 08/03/24 @ 14:44 by Ros Lucas NP) New onset of congestive heart failure (Acute) Atrial fibrillation (Chronic) Aspiration pneumonitis (Acute) Ground glass opacity present on imaging of lung (Acute) Medical History Secondary adrenal insufficiency Splenic infarction History of cerebral meningioma Class 3 obesity Hypothyroidism Hx of hiatal hernia Surgical History S/P selective transsphenoidal pituitary adenomectomy pilar cyst (10/11/17) Oophrectomy, Both Xi Fundoplication Excision, Scalp Mass 06/10/17 Colonoscopy - MAC (12/03/16) Cholecystectomy Family History Father Heart disease Mother Stroke Other Hyperlipidemia Social History Smoking/Tobacco Use Status: Never Smoking risk assessment performed?: Yes Alcohol Intake: former Drug use: Never Substance use type: does not use Housing: house Do you feel safe at home: Yes Do you feel safe in your relationship?: Yes Additional Social history: Lives with Fabio in [place]. Practices [employer]. Cares for Grandchild
[2024-08-03 11:54] LABS: Abs Immature Grans 0.09 10^3/uL (0.0-0.06); Absolute Basophil Count 0.04 10^3/uL (0.0-0.2); Absolute Eosinophil Count 0.13 10^3/uL (0.0-0.7); Absolute Lymphocyte Count 0.36 10^3/uL (1.2-3.4); Absolute Monocyte Count 0.66 10^3/uL (0.1-0.8); Absolute Neutrophil Count 8.48 10^3/uL (1.2-6.7); Basophils % 0.4 %; Eosinophils % 1.3 %; HCT 42.6 % (36.0-46.0); HGB 13.4 g/dL (11.2-15.7); Immature Grans % 0.9 %; Lymphocytes % 3.7 %; MCHC 31.5 % (32.0-36.0); MCV 95 fL (80-95); MPV 10.1 fL (8.0-11.0); Monocytes % 6.8 %; Neutrophils % 86.9 %; Platelet Count 265 10^3/uL (130-400); RBC 4.47 10^6/uL (3.93-5.22); RDW 14.6 % (11.7-14.6); RDW-SD 50.9 fL; WBC 9.76 10^3/uL (4.4-10.8)
[2024-08-03 12:09] LABS: INR 1.1 (0.9-1.1); PTT Activated 25.9 sec (20.6-30.2)
[2024-08-03 12:18] LABS: ALT 63 U/L (14-59); AST 40 U/L (15-37); Albumin 3.1 g/dL (3.4-5.0); Alkaline Phosphatase 55 U/L (46-116); Anion Gap 6.4 mmol/L (3-11); BUN 16 mg/dL (7-18); Bilirubin, Total 0.7 mg/dL (0.2-1.0); CO2 28.6 mmol/L (21.0-32.0); CREATININE 1.4 mg/dL (0.55-1.02); Calcium 8.8 mg/dL (8.5-10.1); Chloride 108 mmol/L (98-107); Estimated GFR 42.27 (mL/min/1.73m2); Glucose 128 mg/dL (74-106); Magnesium 1.9 mg/dL (1.8-2.4); NT-proBNP 2376 pg/mL (<300); Sodium 143 mmol/L (136-145); Total Protein 5.9 g/dL (6.4-8.2); Troponin I 19 ng/L (<or=51)
[2024-08-03] MEDS: Omnipaque 350 MG/ML 500 ML BTL-Imaging package IJ (12:33)
[2024-08-03] MEDS: Normal Saline - Diluent 50 ML VIAL IJ (12:34)
[2024-08-03 12:51] LABS: Troponin I 19 ng/L (<or=51)
[2024-08-03] MEDS: Furosemide 20 MG/2 ML VIAL IVP (12:55)
--- NOTE | 2024-08-03 14:01 | W.PM.HP.N ---
Date of service: 08/03/24 Time of Service: 14:01 Assessment and Plan Assessment and plan (1) Acute hypoxic respiratory failure: Status: Acute Assessment and plan: Patient non on oxygen supplementation at home , required O2 1/lmin via NC to have sat >92% as her sat dropped to 86-88% in the ED on arrival and later on ambulation Most likely d/t point 2 (2) New onset of congestive heart failure: Status: Acute Assessment and plan: last LVEF 50-55% Echocardiogram ordered Lasix 40 mg IV BID despite Cr 1.4 form baseline 1.0 which might also be d/t renal bed congestion BNP 2376 BMP in AM (3) Atrial fibrillation: Status: Chronic Assessment and plan: On home metoprolol and Eliquis (4) RENETTA (acute kidney injury): Status: Acute Assessment and plan: Cr 1.4 no pre-renal symptoms BMP in AM (5) Morbid obesity: Status: Acute Assessment and plan: Heart healthy CHO diet A1C 6.3 Further discussion with PCP re: weight management (6) Adrenal insufficiency: Status: Acute Assessment and plan: On chronic prednisone and hydrocortisone sone - continue home regimen hydrocortisone 50 mg IVP now then re-evaluate for need of therapy Q12 h Low threshold to increase IV therapy for stress induced worsening History of Present Illness History of Present Illness Chief Complaint: shortness of breath Narrative: This 63-year-old female with a PMHx of obesity, pituitary tumors s/p resection in 2018 on chronic steroids, adrenal insufficiency splenic infarction, cerebral meningioma, hypothyroidism hiatal hernia atrial fibrillation. A-fib on metoprolol and eliquis, presented to the ER with chief complaint of sudden onset of shortness of breath which began 1 week ago while she was traveling to [place] with bilateral leg swelling that since then has resolved. She reported that a resolved cough, no hemoptysis no palpitations, denied any chest pain but positive chest heaviness when bending down and ambulation. Reporting one transient episode of atrial fibrillation during her vacation. The patient was also admitted approximately 1 month ago for aspiration pneumonia versus pneumonitis , developed A-fib with RVR and treated with increased doses of her amiodarone and metoprolol. As per report the patient saturation in O2 was s 86% on room air [facility] with [facility] WOB; resolution to 93% on 1 liters nasal cannula. Blood work in the ED is positive for BNP 2376, Cr 1.4; otherwise unremarkable. Chest CTA is negative for PE, positive for bilateral pleural effusion and ground glass opacities. The patient received lasix 20 mg IVP in the ED and was admitted to the medical surgical floor with telemetry for acute hypoxic respiratory failure in the setting of new onset CHF with exacerbation. Full code status confirmed. Denied change in vision, congestion, sick contact, fever chills, nausea, vomiting, diarrhea or dysuria. Review of Systems All systems reviewed & are unremarkable except as noted in HPI and below PFSH All Active Problems (Updated 08/03/24 @ 16:47 by Tammy Santana APRN) Adrenal insufficiency (Acute) Morbid obesity (Acute) RENETTA (acute kidney injury) (Acute) Acute hypoxic respiratory failure (Acute) New onset of congestive heart failure (Acute) Atrial fibrillation (Chronic) Aspiration pneumonitis (Acute) Ground glass opacity present on imaging of lung (Acute) Medical History Secondary adrenal insufficiency Splenic infarction History of cerebral meningioma Class 3 obesity Hypothyroidism Hx of hiatal hernia Surgical History S/P selective transsphenoidal pituitary adenomectomy pilar cyst (10/11/17) Oophrectomy, Both Xi Fundoplication Excision, Scalp Mass 06/10/17 Colonoscopy - MAC (12/03/16) Cholecystectomy Family History Father Heart disease Mother Stroke Other Hyperlipidemia Social History Smoking/Tobacco Use Status: Never Smoking risk assessment performed?: Yes Alcohol Intake: former Drug use: Never Substance use type: does not use Housing: house Do you feel safe at home: Yes Do you feel safe in your relationship?: Yes Additional Social history: Lives with Fabio in [place]. Practices [employer]. Cares for Grandchild Meds Allergies and Home Medications Allergies Allergy/AdvReac Type Severity Reaction Status Date / Time phenytoin sodium (From Allergy Severe Hives Verified 08/03/24 11:32 Dilantin) phenytoin sodium extended Allergy Severe Hives Verified 02/27/24 10:49 (From Dilantin) multiple chemical AdvReac Intermediate upper Uncoded 08/03/24 11:32 sensitivites Resp. issues FISHER, congestion Home Medications ?Medication ?Instructions ?Recorded ?Confirmed ?Type hydrocortisone 5 mg tablet See Rx Instructions PO DAILY 06/06/17 08/03/24 History allopurinol 100 mg tablet 100 mg PO BID 01/09/24 08/03/24 History famotidine 40 mg tablet 40 mg PO DAILY 01/20/24 08/03/24 History metoprolol succinate 100 mg 100 mg PO BID #180 tabs 01/20/24 08/03/24 Rx tablet,extended release 24 hr prednisone 1 mg tablet 1 mg PO BID 01/20/24 08/03/24 History apixaban 5 mg tablet 5 mg .Route BID #180 tabs 02/10/24 08/03/24 Rx somatropin 10 mg/1.5 mL (6.7 0.2 mg subcut .COMPLEX 06/11/24 08/03/24 History mg/mL) subcutaneous pen injector (Norditropin FlexPro) benzonatate 200 mg capsule 200 mg PO TID PRN PRN cough #20 06/15/24 08/03/24 Rx caps docusate sodium 100 mg capsule 100 mg PO BID #60 caps 06/15/24 08/03/24 Rx (Colace) amiodarone 400 mg tablet 400 mg PO DAILY 08/03/24 08/03/24 History hydrocortisone 20 mg tablet 20 mg PO DAILY 08/03/24 08/03/24 History thyroid (pork) 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 mg PO DAILY 08/03/24 08/03/24 History Thyroid) Exam Narrative Exam Narrative: Constitutional 63 yo morbidly obese patient appearing of stated age, without acute distress HENMT:+ JVD, facial structures with normal appearance Eyes: Well aligned, intact ROM Neuro:alert and oriented X4 .No neurological focal deficit Chest:Chest is symmetrical and normal appearance Resp: Unlabored breathing at rest , decreased bases 1/2 up bilaterally Cardio: SB HR 50-53 , regular rhythm, S1, S2, no murmur bilateral radial and dorsalis pedis pulses are positive, no edema GI: Abdomen is not distended, soft and non tender, bowel sounds are present Integumentary: No skin lesions or rash Extremities: strength 5/5 to bilateral lower and upper extremities Psych: RASS 0, congruent mood and normal affect. Results Labs 08/03/24 11:45 08/03/24 11:45 Labs: Laboratory Results - last 24 hr 08/03/24 08/03/24 11:45 12:29 WBC 9.76 RBC 4.47 Hgb 13.4 Hct 42.6 MCV 95 MCH 30.0 MCHC 31.5 L RDW 14.6 Plt Count 265 MPV 10.1 Immature Gran % 0.9 Neutrophils % 86.9 Lymphocytes % 3.7 Monocytes % 6.8 Eosinophils % 1.3 Basophils % 0.4 Nucleated RBC % 0.0 Absolute Neutrophils 8.48 H Absolute Lymphocytes 0.36 L Absolute Monocytes 0.66 Absolute Eosinophils 0.13 Absolute Basophils 0.04 PT 11.0 INR 1.1 APTT 25.9 Sodium 143 Potassium 4.0 Chloride 108 H Carbon Dioxide 28.6 Anion Gap 6.4 BUN 16 Creatinine 1.4 H Est GFR (CKD-EPI 2020) 42.27 Glucose 128 H Calcium 8.8 Magnesium 1.9 Total Bilirubin 0.7 AST 40 H ALT 63 H Alkaline Phosphatase 55 Troponin I 19 19 NT-Pro-B Natriuret Pep 2376 H Total Protein 5.9 L Albumin 3.1 L Last Vital Signs Temp 36.3 C L 08/03/24 11:28 Pulse 49 L 08/03/24 13:20 Resp 27 H 08/03/24 13:20 BP 149/71 H 08/03/24 13:02 Pulse Ox 96 08/03/24 13:25 Time Spent Time spent with Patient: >75 minutes Time was spent: preparing to see the patient(eg.review tests), obtaining and/or reviewing separately otained hiistory, ordering medications,tests, procedures, referring, communicating with other health vp care management, indepentently interpreting results, counseling the patient and care coordination
[2024-08-03 14:56] LABS: Troponin I 17 ng/L (<or=51)
--- NOTE | 2024-08-03 15:38 | W.PC.ACHO ---
Registration Status: Primary Language: Preferred Language: ED Information & Data Chief Complaint SOB/SuddenOnset 08/03/24 11:51 Triage Note Patient visiting [place] and 08/03/24 11:28 developed SOB one week ago. Feet swollen (normal for her in heat and humidity), non productive rare cough, onset was sudden. No CP, no palpitations. Medical / Surgical History (Last Reviewed 08/03/24 @ 11:52 by Ros Lucas NP) Secondary adrenal insufficiency Splenic infarction History of cerebral meningioma Class 3 obesity Hypothyroidism Hx of hiatal hernia (Last Reviewed 08/03/24 @ 11:52 by Ros Lucas NP) S/P selective transsphenoidal pituitary adenomectomy pilar cyst (10/11/17) Oophrectomy, Both Xi Fundoplication Excision, Scalp Mass Colonoscopy - MAC (12/03/16) Cholecystectomy Most Recent Vital Signs Temperature 36.3 C L 08/03/24 11:28 Temperature Source Oral 08/03/24 11:28 Pulse 52 L 08/03/24 15:31 Pulse 53 L 08/03/24 15:31 Respiratory Rate 19 08/03/24 15:31 Respiratory Effort Short of Breath 08/03/24 11:52 Respiratory Depth Normal 08/03/24 11:52 Respiratory Pattern Normal 08/03/24 11:52 Blood Pressure 155/94 H 08/03/24 15:31 Blood Pressure Mean 115 08/03/24 15:31 Blood Pressure Position Sitting 08/03/24 11:28 Pulse Oximetry 96 08/03/24 15:31 Oxygen Delivery Method Room Air 08/03/24 13:25 Oxygen Flow Rate 0 08/03/24 13:25 Comment ambulation to br 08/03/24 13:40 Allergies phenytoin sodium (From Dilantin) Allergy (Severe, Verified 08/03/24 11:32) Hives phenytoin sodium extended (From Dilantin) Allergy (Severe, Verified 02/27/24 10:49) Hives multiple chemical sensitivites Adverse Reaction (Intermediate, Uncoded 08/03/24 11:32) upper Resp. issues FISHER, congestion Precautions Isolation Standard precaution 08/03/24 11:31 Active Medications Generic Name Dose Route Start Last Admin Trade Name Freq PRN Reason Stop Dose Admin Iohexol 500 ml 08/03/24 12:45 08/03/24 12:33 Omnipaque 350 Mg/Ml 500 Ml Btl-Imaging Package IJ 09/02/24 23:59 100 ml DIRECTED ELAINE Administration Sodium Chloride 50 ml 08/03/24 12:45 08/03/24 12:34 Normal Saline - Diluent 50 Ml Vial IJ 50 ml .FOR DI USE ELAINE Administration IV IV Catheter Type [Right Saline Lock Antecubital] IV Catheter Gauge [Right 18 Antecubital] Diagnostics 08/03/24 08/03/24 08/03/24 Range/Units 14:31 14:25 12:29 WBC (4.4-10.8) 10^3/uL RBC (3.93-5.22) 10^6/uL Hgb (11.2-15.7) g/dL Hct (36.0-46.0) % MCV (80-95) fL MCH (27.0-33.0) pg MCHC (32.0-36.0) % RDW (11.7-14.6) % Plt Count (130-400) 10^3/uL MPV (8.0-11.0) fL Immature Gran % % Neutrophils % % Lymphocytes % % Monocytes % % Eosinophils % % Basophils % % Nucleated RBC % (0.0-0.3) % Absolute Neutrophils (1.2-6.7) 10^3/uL Absolute Lymphocytes (1.2-3.4) 10^3/uL Absolute Monocytes (0.1-0.8) 10^3/uL Absolute Eosinophils (0.0-0.7) 10^3/uL Absolute Basophils (0.0-0.2) 10^3/uL PT (9.1-11.1) sec INR (0.9-1.1) APTT (20.6-30.2) sec Sodium (136-145) mmol/L Potassium (3.5-5.1) mmol/L Chloride (98-107) mmol/L Carbon Dioxide (21.0-32.0) mmol/L Anion Gap (3-11) mmol/L BUN (7-18) mg/dL Creatinine (0.55-1.02) mg/dL Est GFR (CKD-EPI 2020) (mL/min/1.73m2) Glucose (74-106) mg/dL Calcium (8.5-10.1) mg/dL Magnesium (1.8-2.4) mg/dL Total Bilirubin (0.2-1.0) mg/dL AST (15-37) U/L ALT (14-59) U/L Alkaline Phosphatase (46-116) U/L Troponin I 17 19 (<or=51) ng/L NT-Pro-B Natriuret Pep (<300) pg/mL Total Protein (6.4-8.2) g/dL Albumin (3.4-5.0) g/dL COVID-19 Source Pending SARS-CoV-2 (PCR) Pending Influenza Type A (PCR) Pending Influenza Type B (PCR) Pending RSV (PCR) Pending 08/03/24 Range/Units 11:45 WBC 9.76 (4.4-10.8) 10^3/uL RBC 4.47 (3.93-5.22) 10^6/uL Hgb 13.4 (11.2-15.7) g/dL Hct 42.6 (36.0-46.0) % MCV 95 (80-95) fL MCH 30.0 (27.0-33.0) pg MCHC 31.5 L (32.0-36.0) % RDW 14.6 (11.7-14.6) % Plt Count 265 (130-400) 10^3/uL MPV 10.1 (8.0-11.0) fL Immature Gran % 0.9 % Neutrophils % 86.9 % Lymphocytes % 3.7 % Monocytes % 6.8 % Eosinophils % 1.3 % Basophils % 0.4 % Nucleated RBC % 0.0 (0.0-0.3) % Absolute Neutrophils 8.48 H (1.2-6.7) 10^3/uL Absolute Lymphocytes 0.36 L (1.2-3.4) 10^3/uL Absolute Monocytes 0.66 (0.1-0.8) 10^3/uL Absolute Eosinophils 0.13 (0.0-0.7) 10^3/uL Absolute Basophils 0.04 (0.0-0.2) 10^3/uL PT 11.0 (9.1-11.1) sec INR 1.1 (0.9-1.1) APTT 25.9 (20.6-30.2) sec Sodium 143 (136-145) mmol/L Potassium 4.0 (3.5-5.1) mmol/L Chloride 108 H (98-107) mmol/L Carbon Dioxide 28.6 (21.0-32.0) mmol/L Anion Gap 6.4 (3-11) mmol/L BUN 16 (7-18) mg/dL Creatinine 1.4 H (0.55-1.02) mg/dL Est GFR (CKD-EPI 2020) 42.27 (mL/min/1.73m2) Glucose 128 H (74-106) mg/dL Calcium 8.8 (8.5-10.1) mg/dL Magnesium 1.9 (1.8-2.4) mg/dL Total Bilirubin 0.7 (0.2-1.0) mg/dL AST 40 H (15-37) U/L ALT 63 H (14-59) U/L Alkaline Phosphatase 55 (46-116) U/L Troponin I 19 (<or=51) ng/L NT-Pro-B Natriuret Pep 2376 H (<300) pg/mL Total Protein 5.9 L (6.4-8.2) g/dL Albumin 3.1 L (3.4-5.0) g/dL COVID-19 Source SARS-CoV-2 (PCR) Influenza Type A (PCR) Influenza Type B (PCR) RSV (PCR) Intake and Output - 24 Hour Total 08/03/24 11:17 thru 08/03/24 15:22 Output Total 3850 Balance -3850 Weight 129.274 kg Output: Urine 3850 Falls Risk Assessment History of Falls No History 08/03/24 11:31 Contributing Factors No Factors 08/03/24 11:31 Ambulatory Aids Independent 08/03/24 11:31 Tubes/Lines None 08/03/24 11:31 Gait Evaluation No gait disturbance 08/03/24 11:31 Cognition No cognitive impairment 08/03/24 11:31 Fall Total Score 0 08/03/24 11:31 Level of Risk Standard/Low Risk 08/03/24 11:31 Problems (Last Reviewed 08/03/24 @ 11:52 by Ros Lucas NP) New onset of congestive heart failure (Acute) Notes 08/03/24 11:40 Nursing Notes by Magdalena Campa Nursing Note: pt arrived w/ o2 of 87% RA, pt baseline does not have oxygen requirement. 1 L/min via NC placed, satting 96%. Initialized on 08/03/24 11:40 - END OF NOTE v v v v v v v v v Sending and/or Receiving Nurses: Please use comment section below to note any information pertinent to the patient hand-off not included above. Information / Comments: Report received from: Report received from JERAD Quiroga) at 15:33 - SBAR report, all questions answered.
[2024-08-03 15:44] LABS: COVID-19 PCR Negative (Negative); Influenza A PCR Negative (Negative); Influenza B PCR Negative (Negative); RSV PCR Negative (Negative)
[2024-08-03 15:49] LABS: Source Nasopharynx
[2024-08-03] MEDS: Furosemide 40 MG/4 ML VIAL IVP (16:58)
[2024-08-03] MEDS: Hydrocortisone SOD SUC. 100 MG VIAL 50 MG IVP (17:44)
[2024-08-03] MEDS: Docusate Sodium 100 MG CAP PO (20:01)
[2024-08-03] MEDS: Apixaban 5 MG TAB PO (20:01)
[2024-08-03] MEDS: Hydrocortisone 10 MG TAB 5 MG PO (20:02)
[2024-08-03] MEDS: predniSONE 1 MG TAB PO (20:02)
[2024-08-03] MEDS: Normal Saline Flush 10 ML SYR IVP (20:02)
[2024-08-03] MEDS: Allopurinol 100 MG TAB PO (20:02)
[2024-08-03] MEDS: Cyclobenzaprine 10 MG TAB PO (21:40)
[2024-08-03] MEDS: Metoprolol 25 MG TAB PO (23:47)
[2024-08-04] VITALS (7 sets, daily range): BP systolic 94–140; BP diastolic 44–96; PULSE 80–122; RESP 16–19; TEMP 36–37.1; O2SAT 90–95
[2024-08-04] MEDS: Metoprolol 25 MG TAB PO ×2 (06:02→11:51)
[2024-08-04] MEDS: Apixaban 5 MG TAB PO (06:21)
[2024-08-04] MEDS: Amiodarone 200 MG TAB 400 MG PO (06:21)
[2024-08-04] MEDS: predniSONE 1 MG TAB 2 MG PO (06:22)
[2024-08-04] MEDS: Hydrocortisone 10 MG TAB 30 MG PO (06:22)
[2024-08-04] MEDS: Docusate Sodium 100 MG CAP PO (06:34)
[2024-08-04] MEDS: Famotidine 20 MG TAB 40 MG PO (06:34)
[2024-08-04] MEDS: Allopurinol 100 MG TAB PO (06:34)
[2024-08-04 06:53] LABS: Abs Immature Grans 0.04 10^3/uL (0.0-0.06); Absolute Basophil Count 0.03 10^3/uL (0.0-0.2); Absolute Eosinophil Count 0.08 10^3/uL (0.0-0.7); Absolute Lymphocyte Count 0.71 10^3/uL (1.2-3.4); Absolute Neutrophil Count 5.86 10^3/uL (1.2-6.7); Basophils % 0.4 %; Eosinophils % 1.1 %; HCT 47.1 % (36.0-46.0); HGB 15.1 g/dL (11.2-15.7); Immature Grans % 0.5 %; Lymphocytes % 9.6 %; MCH 29.8 pg (27.0-33.0); MCHC 32.1 % (32.0-36.0); MCV 93 fL (80-95); MPV 10.2 fL (8.0-11.0); Monocytes % 9.4 %; Platelet Count 265 10^3/uL (130-400); RBC 5.07 10^6/uL (3.93-5.22); RDW 14.6 % (11.7-14.6); RDW-SD 49.7 fL; WBC 7.42 10^3/uL (4.4-10.8)
[2024-08-04 07:13] LABS: Magnesium 2.4 mg/dL (1.8-2.4)
[2024-08-04 07:19] LABS: Anion Gap 5.3 mmol/L (3-11); BUN 12 mg/dL (7-18); CO2 33.7 mmol/L (21.0-32.0); CREATININE 1.1 mg/dL (0.55-1.02); Calcium 9.3 mg/dL (8.5-10.1); Chloride 108 mmol/L (98-107); Estimated GFR 56.46 (mL/min/1.73m2); Glucose 101 mg/dL (74-106); Potassium 3.4 mmol/L (3.5-5.1); Sodium 147 mmol/L (136-145)
[2024-08-04] MEDS: Normal Saline Flush 10 ML SYR IVP (08:30)
--- NOTE | 2024-08-04 09:30 | DI.US_ITS ---
APPROVED REPORT EXAM: Comprehensive 2D, Doppler, and color-flow Echocardiogram Patient Location: In-Patient Room/Bed: 226 Hvac Installer: Abran Zepeda RDCS (AE) Indications: CHF Other Information Study Quality: Adequate. Technically limited study due to body habitus. Conclusion Normal left ventricular wall thickness and chamber size. Ejection fraction is 50 to 55%. There is b orderline global hypokinesis Normal right ventricular size and function Left atrium is severely dilated. Right atrium is moderately dilated Trileaflet aortic valve with trace regurgitation Normal mitral valve with trace regurgitation Compared to previous study of December 2023, LV function appears similar. Mitral regurgitation appe ars less Wall motion Left Ventricle The left ventricle is normal size. Left ventricular systolic function is borderline. There is normal left ventricular wall thickness. There is borderline mild global hypokinesis of the left ventricle. T here is no ventricular septal defect visualized. LVEF is 50-55%. Right Ventricle The right ventricle is normal size. The right ventricular systolic function is normal. Atria Left atrium is severely dilated. Right atrium is moderately dilated. The interatrial septum is intact with no evidence for an atrial septal defect. Aortic Valve The aortic valve is normal in structure. Aortic valve is trileaflet. There is no aortic valvular sten osis. Trivial aortic regurgitation. Mitral Valve The mitral valve is normal in structure. No evidence of mitral valve stenosis. Trace mitral regurgita tion. Tricuspid Valve The tricuspid valve is normal in structure. There is no tricuspid valve stenosis. Trace to mild tricu spid regurgitation. The RVSP is 37 mmHg. Pulmonic Valve The pulmonary valve is normal in structure. There is no pulmonic valvular stenosis. Trace pulmonic re gurgitation. Great Vessels The aortic root is normal in size. The ascending aorta is normal in size. Aortic arch is normal in ca liber. IVC is normal in size and collapses >50% with inspiration. Pericardium There is no pericardial effusion. 2D Dimensions IVSD d PLAX 0.93 cm F: 0.6-1.0 Ao Root d 2.80 cm F: 2.7 - 3.3 LVPW d PLAX 0.91 cm F: 0.6 - 1.0 Ao Asc Diam d 3.02 cm F: 2.3 - 3.1 LVID d PLAX 6.85 cm F: 3.8 - 5.2 LVDs 4.89 cm F: 2.2 - 3.5 LV EF Teichholz 53.9 % FS 28.63 % LV EDV (Teich) 243.5 mL LV ESV (Teich) 112.4 mL Stroke Vol Index (Teich) 57.28 M-Mode TAPSE 2.09 cm (M/F) >1.7 LV Volumes - Method of Disks (Mayers's) Single Plane 2D LV Volumes Biplane 2D LV Volumes LV EDV A4C 61.5 mL LV EDV BP 56.82 mL F: 46 - 106 LV ESV A4C 32.1 mL LV ESV BP 29.0 mL LVEF(%) A4C 47.7 % LVEF(%) BP 49.02 % F: 54 - 74 LV EDV A2C 50.6 mL LV EDV BP Index 24.70 mL/m2 F: 29 - 61 LV ESV A2C 25.3 mL SV BP LVEF(%) A2C 50.0 % SV Index LA Volume LA Length A4C 7.6 cm LA Length A2C 8.0 cm LA Area A4C s 32.58 cm2 LA Area A2C s 24.46 cm2 LA Vol A4C A-L 119.05 mL LA Vol A2C A-L 63.15 mL LA Vol Biplane A-L 89.4 mL LA Vol/BSA A4C A-L LA Vol/BSA A2C A-L LA Vol/BSA BP A-L 39.0 mL/m2 LA Vol A4C MOD 111.8 mL LA Vol A2C MOD 61.7 mL LA Vol BP MOD 85.3 mL RA Volume RA Area A4C 13.2 cm2 RA ESV A4C (A-L) 27.6mL RA Vol/BSA A4C A-L RA Length A4C 5.4 cm RA ESV A4C (MOD) 27.2mL LV Diastology MV E' medial 0.078 (>0.07 m/s) MV E Vmax 0.79 (0.4-1.3 m/s) MV E/E' MED 10.21 (<14) MV A Vmax 0.30 (0.4-1.3 m/s) MV E' lateral 0.089 (>0.1 m/s) E/A Ratio 2.6 MV E/E' LAT 8.97 (<14) MV E' Average 0.083 m/s MV E/E'(average) 9.55 Aortic Valve AoV Vmax 1.24 m/s LVOT Vmax 0.90 m/s AoV Peak Grad 6.2 mmHg LVOT Peak Grad 3.2 mmHg AoV Area (Vmax) 2.27 cm2 LVOT VTI 0.152 m AoV VTI 0.220 m LVOT Mean Grad 1.7 mmHg AoV Mean Shun. 0.83 m/s LVOT SV 47.91 mL AoV Mean Grad 3.2 mmHg LVOT Diam s 2.00 cm AoV Area (VTI) 2.18 cm2 AV Regurg Peak Gr. 6.16 mmHg Velocity Ratio 0.73 Mitral Valve MV DT 210 (160-240 msec) Tricuspid Valve RA Pressure 3.00 mmHg TR Vmax 2.91 m/s TV S' 0.14 m/s TR Peak Grad 33.9 mmHg RVSP (TR) 37.0 mmHg
--- NOTE | 2024-08-04 09:57 | PDOC.CMIN ---
Date of service: 08/04/24 Time of Service: 09:57 Care Management Initial Assmt Initial Assessment Reason for Hospitalization: Acute hypoxic respiratory failure, New Onset of CHF Functional Status/Living Situation Patient Presentation: Jacinda was sitting up in a chair when CM met with her and is accompanied by her Fabio. Jacinda is pleasant and readily engages in conversation and shares that she lives in a single family home in [place] with her Fabio. Their daughter Mary lives nearby and is supportive. Jacinda worked for [employer] before she retired and is very familiar with community supports and resources. 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 Town of Residence: [place] Resides with: Spouse ( Fabio) Significant Other/Family: Local (Daughter Mary) Natural Supports: Supportive family and neighbors Employment Status: Retired Instrumental Activities of Daily Living (ADLs): Independent Medications Medication Management: No Issues/Barriers identified Physical Functioning/Mobility Assistive Device: None Advance Directives Advance Directives: Do you have an Advance Directive: Y 01/14/24 20:26 AD On File at [facility]: Y 01/14/24 20:26 Date Asked 01/09/24 06/24/24 07:42 AD Date Reviewed 06/24/24 06/24/24 07:42 COLST On File at [facility] COLST Date Scanned Code Status Resuscitation Status Full Code Insurance Coverage/Financial Issues Insurance: /[facility] - [id number] Financial Issues: None identifed Care Team Visit Care Team Role Provider Type Irina Lovell Primary Care Provider NON-[facility] STAFF PHYSICIAN Ros Lucas NP Emergency Provider NURSE PRACTITIONER Josh Kowalski MD Admit Provider [facility] STAFF PHYSICIAN Attending Provider Discharge Potential Discharge Needs: PCP F/U Appt Anticipated Barriers to Discharge: None Identified Patient/Family Education Needs: Review discharge instructions, discuss Ask Me Three Transportation: Private vehicle Plan: Anticipate Jacinda will be discharged home with no new services when medically cleared. She will follow up with her PCP and plan of care and transport with family. CM will follow and continue to assess for discharge needs. Social Determinants of Health Screening Social Determinants of health last assessed in clinic: 08/04/24 Will the Patient Participate in the Screening?: Yes Do you worry about having a steady place to live?: no Problems where you live: no known problems In the past 12 months, have you had to go without electric, gas, oil or water in your home?: no 1. Within the past 12 months, we worried whether our food would run out before we got money to buy more.: Never true 2. Within the past 12 months, the food we bought just didn't last and we didn't have money to get more.: Never true Has lack of transportation kept you from medical appointments or from doing things needed for daily living?: no Has anyone in your life made you feel unsafe or unsupported?: no How hard is it for you to pay for the very basics like food, housing, medical care, and heating? Would you say it is:: Not hard at all Do you want help finding or keeping work or a job?: I do not need or want help If for any reason you need help with day-to-day activities such as bathing, preparing meals, shopping, managing finances, etc., do you get the help you need?: I get all the help I need How often do you feel lonely or isolated from those around you?: Never Do you speak a language other than Irish at home?: No Does the patient want assistance with any of the above?: No PFSH All Active Problems (Updated 08/04/24 @ 14:37 by Tammy Santana APRN) Heart failure with preserved ejection fraction (HFpEF, >= 50%) (Acute) Adrenal insufficiency (Acute) Morbid obesity (Acute) RENETTA (acute kidney injury) (Acute) Acute hypoxic respiratory failure (Acute) New onset of congestive heart failure (Acute) Atrial fibrillation (Chronic) Aspiration pneumonitis (Acute) Ground glass opacity present on imaging of lung (Acute) Medical History Secondary adrenal insufficiency Splenic infarction History of cerebral meningioma Class 3 obesity Hypothyroidism Hx of hiatal hernia Surgical History S/P selective transsphenoidal pituitary adenomectomy pilar cyst (10/11/17) Oophrectomy, Both Xi Fundoplication Excision, Scalp Mass 06/10/17 Colonoscopy - MAC (12/03/16) Cholecystectomy Family History Father Heart disease Mother Stroke Other Hyperlipidemia Social History Smoking/Tobacco Use Status: Never Smoking risk assessment performed?: Yes Alcohol Intake: former Drug use: Never Substance use type: does not use Housing: house Do you feel safe at home: Yes Do you feel safe in your relationship?: Yes Additional Social history: Lives with Fabio in [place]. Practices Reiki. Cares for Grandchild
--- NOTE | 2024-08-04 11:57 | CHAPLAIN ---
Jacinda was up in the chair visiting with her Fabio when I stopped in. They returned from a recent vacation in [place] and Jacinda had not felt well on the trip, with difficulty breathing and AFib. Jacinda was here in early June with similar symptoms. This time she got rid of eight liters of fluid, and felt much better she said. She's had some cardiac tests done and is waiting for results. She thinks she may be going home later today. Jacinda said she's tired of dealing with these issues, but also does not want them to get in the way of her living her life. She is well supported by her , actively involved with grandchildren and is a Reiki practitioner and instructor.
[2024-08-04] MEDS: Hydrocortisone 10 MG TAB 20 MG PO ×2 (12:08→16:53)
[2024-08-04] MEDS: Potassium Chloride 20 MEQ TABCR PO (12:08)
--- NOTE | 2024-08-04 14:21 | DSE_ITS ---
Date of service: 08/04/24 Time of Service: 14:21 DS: Diagnosis Discharge Diagnosis (1) Acute hypoxic respiratory failure: Status: Acute (2) New onset of congestive heart failure: Status: Acute (3) Atrial fibrillation: Status: Chronic (4) RENETTA (acute kidney injury): Status: Acute (5) Morbid obesity: Status: Acute (6) Adrenal insufficiency: Status: Acute (7) Heart failure with preserved ejection fraction (HFpEF, >= 50%): Status: Acute Discharge Plan Disposition Patient Disposition: Home Condition: Improving Discharge Details Reason For Visit: CHF exacerbation, acute hypoxic resp. failure, ple Admit Date/Time: 08/03/24 14:18 Admit Provider: Josh Kowalski Attending Provider: Josh Kowalski Primary Care Provider: Irina Lovell [facility] Course Hospital Course: This 63-year-old female with a PMHx of obesity, pituitary tumors s/p resection in 2018 on chronic steroids, adrenal insufficiency ,splenic infarction, cerebral meningioma, hypothyroidism, hiatal hernia atrial fibrillation on metoprolol and eliquis, presented to the ER on 08/03/24 with chief complaint of sudden onset of shortness of breath which began 1 week ago while she was traveling to [place] with bilateral leg swelling that since then had resolved. Work-up was neagtive for ACS and PE but showed positive bilateral pleural effusion and ground glass opacities as per CTA. Blood work in the ED was positive for BNP 2376, Cr 1.4; otherwise unremarkable.The patient was treated IV lasix and admitted to the medical surgical floor for acute hypoxic respiratory failure in the setting of new onset CHF with exacerbation. Echocardiogram conclusions: Normal left ventricular wall thickness and chamber size. Ejection fraction is 50 to 55%. There is borderline global hypokinesis Normal right ventricular size and function Left atrium is severely dilated. Right atrium is moderately dilated Trileaflet aortic valve with trace regurgitation Normal mitral valve with trace regurgitation Compared to previous study of December 2023, LV function appears similar. Mitral regurgitation appears less With an H2FPEF score of 8/ 9 he patient will be discharge home on oral diuretic, potassium supplementation; jardiance was added to regimen. A cardiology referral was completed. On the day of discharge the patient was hemodynamically stable without oxygen supplementation requirement Recommendation for PCP follow-up: -BMP and diuretic and potassium dose adjustment -Empagliflozin dose adjustment -Cardiology consult/referral -Weight management and cardiac rehabilitation -Discuss the need for GLP-1 antagonist such as terzepatide Discussed with Dr. Prather Home Meds and New Rx's Prescriptions: New potassium chloride 20 mEq tablet extended release 20 meq PO DAILY Qty: 30 0RF furosemide 40 mg tablet 40 mg PO BID Qty: 60 0RF Jardiance 10 mg tablet 10 mg PO DAILY Qty: 30 0RF Continued apixaban 5 mg tablet 5 mg .ROUTE BID Qty: 180 3RF Rx Instructions: 5 mg twice a day; prednisone 1 mg tablet 1 mg PO HS Patient Comments: *DOSE VARIES DEPENDING ON SEVERITY OF ADRENAL CRISIS PER PATIENT* Patient states current dose is two 1mg tablets every morning, one tablet at night famotidine 40 mg tablet 40 mg PO DAILY hydrocortisone 5 MG tablet 5 mg PO HS Patient Comments: *DOSE VARIES DEPENDING ON SEVERITY OF ADRENAL CRISIS; MOST RECENTLY TAKING 30MG IN AM AND 20MG IN PM PER PATIENT 06/11/24 -, [facility]* 5mg PO HS Patient reports she takes 30mg PO every morning, as well as 20mg at 5pm. Norditropin FlexPro 10 mg/1.5 mL (6.7 mg/mL) pen injector 0.2 mg SUBCUT .COMPLEX Rx Instructions: 0.2 mg subcutaneously 3xs/week; benzonatate 200 mg Capsule 200 mg PO TID PRN PRN (Reason: cough) Qty: 20 0RF docusate sodium [Colace] 100 mg Capsule 100 mg PO BID Qty: 60 0RF allopurinol 100 mg tablet 100 mg PO BID Patient Comments: TAKE ONE TABLET BY MOUTH EVERY DAY IN THE MORNING FOR GOUT thyroid (pork) [TRANSPORTATION SOLUTIONS MANAGER Thyroid] 90 mg tablet 45 mg PO BID Patient Comments: TAKE 1/2 TABLET BY MOUTH TWICE DAILY amiodarone 400 mg tablet 400 mg PO DAILY Patient Comments: TAKE 1 TABLET BY MOUTH DAILY hydrocortisone 20 mg tablet 20 mg PO DAILY Patient Comments: 20mg PO Daily at 5PM. Patient reports she takes 30mg PO every morning, as well as 5mg at night. prednisone 1mg 2 mg PO .AM metoprolol succinate 100 mg tablet extended release 24 hr 50 mg PO BID Patient Comments: Patient states current dose is 50mg, extended release, PO BID Discharge Instructions Referrals: Irina Lovell [Primary Care Provider] - (Follow-up within 7 days of discharge) Emiliana Stover MD [ [facility] STAFF PHYSICIAN] - (Referral for new onset HFpEF -) Activity:: Activity as Tolerated Equipment/Supplies:: No Equipment Needed Diet:: heart healthy diabetic Discharge Orders Discharge Orders: Discharge Order (Routine); Ordered 08/04/24 Ordered By: Tammy Santana DS: Summary Time Spent with Patient providing and/or coordinating discharge services: Greater than 30 minutes Status at Discharge Functional status at discharge: independent ambulation Overall status at discharge: patient is progressing back to baseline Mental Status: mental status grossly normal Speech and Movement: speech and movement normal Mood: congruent mood Affect: normal affect Quality:SDOH Health Related Social Needs: Health related social needs education (Z55.6) Exam Narrative Exam Narrative: Constitutional 63 yo morbidly obese patient appearing of stated age, without acute distress HENMT: improved JVD, facial structures with normal appearance Neuro:alert and oriented X4 , no focal deficits Resp: Unlabored breathing , clear breath sounds Cardio:A-fib HR 80-107, regular rhythm, S1, S2, no murmur, positive pedal and radial pulses GI: Abdomen is not distended, soft and non tender, bowel sounds are present Integumentary: No skin lesions or rash Extremities: strength 5/5 to bilateral lower and upper extremities Psych: RASS 0, congruent mood and normal affect. Psych Mental Status: mental status grossly normal Speech and Movement: speech and movement normal Mood: congruent mood Affect: normal affect DS: Data Vitals/I&O Vitals and I&O: Vital Signs Temperature 36.3 C L 08/04/24 11:33 Temperature Source Tympanic 08/04/24 11:33 Pulse 103 H 08/04/24 11:33 Pulse Rhythm Regular 08/03/24 15:59 Pulse 53 L 08/03/24 15:31 Respiratory Rate 18 08/04/24 11:33 Respiratory Effort Normal 08/03/24 15:59 Respiratory Depth Normal 08/03/24 15:59 Respiratory Pattern Normal 08/03/24 15:59 Blood Pressure 140/84 08/04/24 11:33 Blood Pressure Mean 115 08/03/24 15:31 Blood Pressure Position Sitting 08/03/24 11:28 Pulse Oximetry 95 08/04/24 11:33 Oxygen Delivery Method Room Air 08/04/24 11:33 Oxygen Flow Rate 0 08/04/24 11:33 Pain Level 0 08/04/24 11:33 Comment RN present 08/03/24 15:49 Comment ambulation to br 08/03/24 13:40 Intake & Output 08/03/24 08/04/24 08/04/24 23:59 11:59 23:59 Intake Total 240 / 240 740 / 980 240 / 980 Output Total 8475 / 8475 700 / 700 Balance -8235 / -8235 40 / 280 240 / 280 Weight 132.131 kg Intake: Oral 240 / 240 740 / 980 240 / 980 Output: Urine 8475 / 8475 700 / 700 Other: Urine Color Straw Yellow Urine Appearance Clear Clear Urine Odor None None Data Completed and Pending Labs on day of discharge: Labs from last 24 hours 08/04/24 08/03/24 08/03/24 06:21 14:31 14:25 WBC 7.42 RBC 5.07 Hgb 15.1 Hct 47.1 H MCV 93 MCH 29.8 MCHC 32.1 RDW 14.6 Plt Count 265 MPV 10.2 Immature Gran % 0.5 Neutrophils % 79.0 Lymphocytes % 9.6 Monocytes % 9.4 Eosinophils % 1.1 Basophils % 0.4 Nucleated RBC % 0.0 Absolute Neutrophils 5.86 Absolute Lymphocytes 0.71 L Absolute Monocytes 0.70 Absolute Eosinophils 0.08 Absolute Basophils 0.03 Sodium 147 H Potassium 3.4 L Chloride 108 H Carbon Dioxide 33.7 H Anion Gap 5.3 BUN 12 Creatinine 1.1 H Est GFR (CKD-EPI 2020) 56.46 Glucose 101 Calcium 9.3 Magnesium 2.4 Troponin I 17 COVID-19 Source Nasopharynx SARS-CoV-2 (PCR) Negative Influenza Type A (PCR) Negative Influenza Type B (PCR) Negative RSV (PCR) Negative PFSH All Active Problems (Updated 08/04/24 @ 14:37 by Tammy Santana APRN) Heart failure with preserved ejection fraction (HFpEF, >= 50%) (Acute) Adrenal insufficiency (Acute) Morbid obesity (Acute) RENETTA (acute kidney injury) (Acute) Acute hypoxic respiratory failure (Acute) New onset of congestive heart failure (Acute) Atrial fibrillation (Chronic) Aspiration pneumonitis (Acute) Ground glass opacity present on imaging of lung (Acute) Medical History Secondary adrenal insufficiency Splenic infarction History of cerebral meningioma Class 3 obesity Hypothyroidism Hx of hiatal hernia Surgical History S/P selective transsphenoidal pituitary adenomectomy pilar cyst (10/11/17) Oophrectomy, Both Xi Fundoplication Excision, Scalp Mass 06/10/17 Colonoscopy - MAC (12/03/16) Cholecystectomy Family History Father Heart disease Mother Stroke Other Hyperlipidemia Social History Smoking/Tobacco Use Status: Never Smoking risk assessment performed?: Yes Alcohol Intake: former Drug use: Never Substance use type: does not use Housing: house Do you feel safe at home: Yes Do you feel safe in your relationship?: Yes Additional Social history: Lives with Fabio in [place]. Practices [facility]. Cares for Grandchild Time Spent with Patient Time Spent with Patient: 70-84 minutes4 Time was spent: preparing to see the patient(eg.review tests), obtaining and/or reviewing separately otained hiistory, ordering medications,tests, procedures, referring, communicating with other health healthcare administration intern, indepentently interpreting results, counseling the patient and care coordination
--- NOTE | 2024-08-04 15:02 | PDOC.CMDIS ---
Date of service: 08/04/24 Time of Service: 15:02 LACE Index Scoring Tool Questions: Length of Stay (in days): 1 Was the patient admitted via the E.D.?: Yes Comorbidities: Congestive Heart Failure E.D. Visits: 3 Answers: Total Score: 9 Risk of Readmission: Low Risk Care Management Discharge Plan Reason for Hospitalization: CHF exacerbation, acute hypoxic respiratory failure Discharge Plan: Jacinda is being discharged home via private vehicle with . Pt will follow up with community providers and her discharge plan of care as directed. No new services are ordered prior to discharge. Patient/Family Education Needs: Review discharge instructions and plan for outpatient follow up. Discuss ask me three. SDOH Health Related Social Needs: Health related social needs education (Z55.6)
--- NOTE | 2024-08-04 17:16 | NUR.NOTE ---
patient AxOx4 throughout shift, patient had some hypotension this AM but was asymptomatic, continued to monitor and noted patient to have higher BPs that resolved with PO intake. Patient with known secondary adrenal insufficiency, so this RN was closely monitoring for hypovolemia causing an adrenal crisis. Patient went for echo this AM. Discussed in rounds the patient wanting x1 PO dose of 20mg hydrocortisone due to her knowledge of her symptoms with adrenal crisis. She reported getting some R flank pain which is an early sign for her. REGIONAL AGRONOMIST Tammy Santana ordered x1 dose later this morning. Patient was independent in room, tolerating diet, afib on tele with some rate control in 80s/90s but occasionally would spike into 120s/130s for few seconds. Patient sent home this afternoon with jardiance, lasix and potassium pills. Given complex nature of her diagnoses and history this RN (in conjunction with cardiac rehabilitation therapy technician) to follow up with PCP, costume shop manager and sports commentator about taking new medications, as they may affect her AI diagnosis. Patient reports understanding of all d/c education and f/u appointments. PIV removed, going with by POV, all belongings with patient. Nursing Note:
== END 2024-08-04 17:16 | disposition home or self-care (01) ==
LOC: ER 14:44 → MS 15:45
PROVIDERS: Nurse Practitioner Acute Care; Admitting Provider Hospitalist; Emergency Provider Registered Nurse Emergency; PCP Family Medicine; Visit Provider Hospitalist
DX: J96.01 Acute respiratory failure with hypoxia (principal); N17.9 Acute kidney failure, unspecified; I50.31 Acute diastolic (congestive) heart failure; I48.19 Other persistent atrial fibrillation; E66.01 Morbid (severe) obesity due to excess calories; Z68.43 Body mass index [BMI] 50.0-59.9, adult; E27.40 Unspecified adrenocortical insufficiency; Z79.52 Long term (current) use of systemic steroids; E03.9 Hypothyroidism, unspecified; K44.9 Diaphragmatic hernia without obstruction or gangrene; Z79.01 Long term (current) use of anticoagulants; Z79.899 Other long term (current) drug therapy
CPT/HCPCS: 00123; 36415; 71275; 80048; 80053; 87637; 93005; 96374; 96375; 96376; 99285; 83735; 83880; 84484; 85025; 85610; 85730; 93010; 93306; 99223; 99239; G0378; J1720; J1940; J1941

== ENCOUNTER 2024-08-14 15:28 | Outpatient (REF) | payer BC, SELFPAY ==
[2024-08-14 15:28] LABS: NT-proBNP 1459 pg/mL (<300); Uric Acid 3.5 mg/dL (2.6-6.0)
== END 2024-08-14 15:29 | disposition home or self-care (01) ==
LOC: NCHCN 15:28
PROVIDERS: PCP Family Medicine; Visit Provider Family Medicine
DX: I50.21 Acute systolic (congestive) heart failure (principal); M1A.4790 Other secondary chronic gout, unspecified ankle and foot, without tophus (tophi)
CPT/HCPCS: 83880; 84550

== ENCOUNTER 2024-10-05 10:47 | Outpatient (CLI) | payer BC, SELFPAY ==
[2024-10-05 08:34] LABS: Hemoglobin A1C 6.1 % (<5.7)
[2024-10-05 09:04] LABS: FREE T4 0.92 ng/dL (0.76-1.46); TSH 1.26 uIU/mL (0.36-3.74)
[2024-10-05 11:05] LABS: Vitamin D 25 Total 26 ng/mL (30-100)
[2024-10-05 17:41] LABS: T3,Free 4.8 pg/mL (2.8-5.3)
[2024-10-06 19:29] LABS: Adrenocorticotropic Hormone, P 12 pg/mL
[2024-10-08 16:23] LABS: T3 (Triiodothyronine) Reverse 32 ng/dL (10-24)
[2024-10-10 19:27] LABS: IGF-1, LC/MS, S 185 ng/mL (41-279)
[2024-10-12 13:01] LABS: Z-score 0.9 SD (-2.0 - +2.0)
== END 2024-10-05 10:48 | disposition home or self-care (01) ==
LOC: LBO 10:48
PROVIDERS: PCP Family Medicine; Visit Provider Internal Medicine Endocrinology, Diabetes & Metabolism
DX: E24.9 Cushing's syndrome, unspecified (principal)
CPT/HCPCS: 36415; 82306; 82533; 82024; 83036; 84305; 84439; 84443; 84481; 84482

== ENCOUNTER 2025-02-26 09:00 | Outpatient (CLI) | payer BC, SELFPAY ==
[2025-02-26 09:41] LABS: Uric Acid 3.9 mg/dL (3.1-7.8)
[2025-02-26 09:44] LABS: Anion Gap 7.9 mmol/L (3-11); BUN 19 mg/dL (9-23); CO2 31.1 mmol/L (20.0-31.0); Calcium 9.3 mg/dL (8.3-10.6); Chloride 106 mmol/L (98-107); Glucose 85 mg/dL (74-106); Potassium 3.7 mmol/L (3.5-5.1); Sodium 145 mmol/L (136-145)
[2025-02-26 09:47] LABS: TSH 3.30 uIU/mL (0.55-4.78); Vitamin D 25 Total 30 ng/mL (30-100)
[2025-02-26 13:46] LABS: Hemoglobin A1C 6.0 % (<5.7)
[2025-02-26 18:01] LABS: T3,Free 3.6 pg/mL (2.8-5.3)
[2025-03-01 10:20] LABS: Adrenocorticotropic Hormone, P 20 pg/mL
[2025-03-03 09:59] LABS: T3 (Triiodothyronine) Reverse 22 ng/dL (10-24)
[2025-03-05 17:32] LABS: IGF-1, LC/MS, S 238 ng/mL (41-279)
== END 2025-02-26 09:01 | disposition home or self-care (01) ==
LOC: LBO 09:00
PROVIDERS: PCP Family Medicine; Visit Provider Internal Medicine Endocrinology, Diabetes & Metabolism
DX: E55.9 Vitamin D deficiency, unspecified (principal); E21.3 Hyperparathyroidism, unspecified; D50.0 Iron deficiency anemia secondary to blood loss (chronic); E03.9 Hypothyroidism, unspecified; E23.0 Hypopituitarism; E11.9 Type 2 diabetes mellitus without complications; E34.9 Endocrine disorder, unspecified
CPT/HCPCS: 36415; 80048; 82306; 82533; 82024; 83036; 84305; 84439; 84443; 84481; 84482; 84550